=== PATIENT | female | born 1945 | race Caucasian/White ===

== ENCOUNTER 2019-01-03 23:49 | Inpatient (IN) | payer OTHER ==
[~2019-01-03] VITALS: Ht 167.6 cm; Wt 69.9 kg
[~2019-01-03 23:49] MED LIST: ASPI-1821 PO; GLU500 PO; HYDR25TA32 PO; PRAV40TA4 PO
--- NOTE | 2019-01-03 23:49 | NUR ---
PT ANGELO ALS. TAKEN TO BED 11
--- NOTE | 2019-01-03 23:50 | NUR ---
BIBA W/C/O GEN WEAKNESS THAT HAS BEEN GRADUALLY INCREASING OVER THE LAST TWO WEEKS. PT NORMALLY AMBULATORY BUT HAS NOT BEEN ABLE TO. EMS FOUND PT INCONTIENT ON SCENE. PT DENIES N/V. PT NOTED TO BE JAUNDICED. BS 113 IN ROUTE. EMS FOUND PT HYPOTENSIVE 97/41, FLUIDS GIVEN IN ROUTE. AAOX4, GCS 15. +CMS. PERIPHERAL PULSES PRESENT. CAP REFILL<3. PMH: HTN, DM UNKNOWN MEDS ALLERGIES TO PENICILLINS
[2019-01-03 23:56] VITALS: BP 138/47
--- NOTE | 2019-01-04 00:31 | NUR ---
BS 103
[2019-01-04] MEDS ORDERED: NACL 0.9% 500 ML IV SCH (00:52)
--- NOTE | 2019-01-04 00:57 | NUR ---
Dr. Reich evaluating patient at bedside.
[2019-01-04 01:24] LABS: BASOPHILS # (AUTO) 0.1 K/uL (0.00-0.22); BASOPHILS % (AUTO) 1.2 % (0.0-2.0); EOSINOPHILS % (AUTO) 0.4 % (0.0-4.0); HEMATOCRIT 31.4 % (36-48); HEMOGLOBIN 10.4 g/dL (12.0-16.0); LYMPHOCYTES # (AUTO) 0.7 K/uL (2.5-16.5); MEAN CORPUSCULAR HEMOGLOBIN 29 pg (27-31); MEAN CORPUSCULAR HGB CONC 33 g/dL (33-37); MEAN CORPUSCULAR VOLUME 87.1 fL (80-94); MONOCYTES # (AUTO) 0.6 K/uL (0.8-1.0); MONOCYTES % (AUTO) 7.2 % (1.7-9.3); NEUTROPHILS # (AUTO) 6.5 K/uL (1.8-7.7); NEUTROPHILS % (AUTO) 82.6 % (42.2-75.2); PLATELET COUNT (AUTO) 167 K/uL (140-450); RED BLOOD CELL COUNT(AUTO) 3.61 MIL/uL (4.20-5.40); WHITE BLOOD COUNT (AUTO) 7.9 K/uL (4.8-10.8)
[2019-01-04 01:35] LABS: ANION GAP 15.2 (8-16); CARBON DIOXIDE 22.3 mmol/L (21-32); CHLORIDE 102 mmol/L (98-107); CREATININE 1.6 mg/dL (0.6-1.3); GLUCOSE 109 mg/dL (74-106); POTASSIUM 3.5 mmol/L (3.5-5.1); SODIUM SERUM 136 mmol/L (136-145); UREA NITROGEN, BLOOD 30 mg/dL (7-18)
[2019-01-04 01:45] LABS: PROTHROMBIN TIME 11.9 secs (10.8-13.4)
[2019-01-04 01:49] LABS: ALBUMIN 2.1 g/dL (3.4-5.0); ASPARTATE AMINOTRANSFERASE 221 U/L (15-37); TOTAL BILIRUBIN 4.5 mg/dL (0.0-1.0)
[2019-01-04 01:52] LABS: LYMPHOCYTES % (AUTO) 8.6 % (20.5-51.1)
--- NOTE | 2019-01-04 02:00 | NUR ---
PT STRAIGHT CATHED AT THIS TIME. PT TOLERATED WELL. 10 ML OF URINE DARK ORANGE CLOUDY COLORED COLLECTED
[2019-01-04 02:02] LABS: CKMB RELATIVE INDEX 0.2 (0.0-2.5); CREATINE KINASE MB 1.2 ng/mL (0-3.6)
--- NOTE | 2019-01-04 02:20 | NUR ---
PT REPOSITIONED WITH PILLOWS FOR COMFORT
[2019-01-04 02:29] LABS: APPEARANCE,URINE CLOUDY (CLEAR); BILIRUBIN,URINE 2+ (NEGATIVE); BLOOD, URINE 1+ (NEGATIVE); COLOR,URINE YELLOW (YELLOW); LEUKOCYTE ESTERASE ,URINE 1+ (NEGATIVE); NITRITE, URINE POSITIVE (NEGATIVE); PH,URINE 5.5 (5.0-9.0); UGLUCOSE NEGATIVE (NEGATIVE)
[2019-01-04 02:35] LABS: RBC,URINE TOO NUMEROUS TO COUN /HPF (0-5); WBC,URINE TOO MANY TO COUNT /HPF (0-5)
[2019-01-04] MEDS ORDERED: NACL 0.9% 2,000 ML IV ONE (02:35)
[2019-01-04] MEDS ORDERED: LEVOFLOXACIN 500 MG/D5W PREMIX 100 ML IV ONE (03:10)
[2019-01-04] MEDS ORDERED: DOCUSATE SODIUM 100 MG GELCAP PO PRN (03:25)
[2019-01-04] MEDS ORDERED: ACETAMINOPHEN 325 MG TAB PO PRN (03:25)
[2019-01-04] MEDS ORDERED: MORPHINE SULFATE 2 MG/ML SYR IVP PRN (03:25)
[2019-01-04] MEDS ORDERED: ONDANSETRON 4 MG/2 ML VIAL IM/IVP PRN (03:25)
[2019-01-04] MEDS ORDERED: MELATONIN 3 MG TAB PO PRN (03:45)
[2019-01-04] MEDS ORDERED: MEDICATION REC. PHARMACY CONS. 1 EA MISC MC PRN ×2 (03:45→13:50)
[2019-01-04 04:00] LABS: CHOL/HDL RATIO 33.1 (1-4.5); FREE T4 (FREE THYROXINE) 1.7 ng/dL (0.76-1.46); MAGNESIUM 2.2 mg/dL (1.8-2.4); THYROID STIMULATING HORMONE 1.2 uIU/mL (0.34-3.74)
[2019-01-04] MEDS ORDERED: DEXTROSE 50% 50 ML SYR IVP PRN (04:00)
--- NOTE | 2019-01-04 04:00 | NUR ---
PT ARRIVED AT UNIT VIA GURNEY, TRANSFERRED PT TO BED, PT IN STABLE CONDITION, NO DISTRESS NOTED, RECEIVED REPORT FROM ED NURSE DARIEN RN, IV TO L AC 20G PATENT, INTACT, INFUSING LEVAQUIN AT THIS MOMENT, INFUSING WELL, PT ON ROOM AIR, NO SOB NOTED, V/S TAKEN, MRSA SWAB TAKEN, ORIENT PT TO ROOM ,BED, CALL LIGHT, INITIAL ASSESSMENT DONE, ALL SAFETY PRECAUTION MET, CALL LIGHT WITHIN REACH, WILL CONTINUE TO MONITOR.
--- NOTE | 2019-01-04 04:11 | NUR ---
Patient will be admitted to care of DR. GEORGE. Admited to TELE. Will go to room 126B. Belongings list completed. Report to LIDIA CASPER.
--- NOTE | 2019-01-04 04:20 | NUR ---
DR. MANCERA AT BEDSIDE TALKING TO PT, NOTIFIED REGARDING PT DIASTOLIC BP LOW, STATED UNDERSTANDING.
[2019-01-04 04:35] VITALS: BP 128/37
--- NOTE | 2019-01-04 05:30 | NUR ---
PT AMBULATED WITH ASSIST TO RESTROOM, PT URINATE AND DID A BM, PT WENT BACK TO BED, TOLERATED WELL, NO DISTRESS NOTED, CALL LIGHT WITHIN REACH, WILL CONTINUE TO MONITOR.
[2019-01-04] MEDS: BLOOD GLUCOSE MONITORING 1 DEV DEV FS SCH ×4 (05:39→21:10)
[2019-01-04] MEDS: NACL 0.9% 1,000 ML IV SCH ×2 (05:39→22:37)
--- NOTE | 2019-01-04 06:20 | NUR ---
RESIDENT CALLED TO CHANGE IVF TO 30ML/HR, IVF CHANGED PER DR ORDER, PT RESTING, NO DISTRESS NOTED, CALL LIGHT WITHIN REACH, WILL CONTINUE TO MONITOR.
--- NOTE | 2019-01-04 07:21 | NUR ---
RECEIVED BEDSIDE REPORT FROM PENNIE VILLARREAL. PT STABLE, AWAKE, AND ALERT AND ORIENTED X4. NO SIGNS OF DISTRESS NOTED. DENIES PAIN OR SOB. NO REDNESS, SWELLING, OR INFLAMMATION NOTED ON IV SITE. BED IN LOWEST POSITION, BED ALARM ON. CALL FITZGERALD WITHIN REACH. SAFETY MEASURES IN PLACE. PLAN OF CARE REVIEWED.
--- NOTE | 2019-01-04 07:22 | NUR ---
ENDORSED PT TO DAY SHIFT NURSE CAMILO CASPER, PT IN STABLE CONDITION, NO DISTRESS NOTED, CALL LIGHT WITHIN REACH.
[2019-01-04 08:00] VITALS: BP 141/53
--- NOTE | 2019-01-04 08:06 | NUR ---
PATIENT HAS BEEN SCREENED AND CATEGORIZED HIGH NUTRITION RISK. PATIENT WILL BE SEEN WITHIN 1-2 DAYS OF ADMISSION. 01/04/19-01/05/[address]
[2019-01-04] MEDS ORDERED: metFORMIN 500 MG TAB PO SCH (09:00)
[2019-01-04] MEDS ORDERED: LEVOFLOXACIN 250 MG/D5 PREMIX 50 ML IV SCH (09:00)
[2019-01-04] MEDS ORDERED: ATORVASTATIN 20 MG TAB PO SCH (09:00)
[2019-01-04] MEDS: ATORVASTATIN 20 MG TAB PO SCH (09:11)
[2019-01-04] MEDS: LACTOBACILLUS RHAMNOSUS GG 1 EACH CAP PO SCH (09:11)
[2019-01-04] MEDS: ASPIRIN 81 MG TAB.CHEW PO SCH (09:12)
[2019-01-04] MEDS: HYDROCHLOROTHIAZIDE 25 MG TAB PO SCH (09:12)
--- NOTE | 2019-01-04 09:19 | NUR ---
ADMINISTERED SCHEDULED MEDICATIONS, PT TOLERATED WELL. NO OTHER NEEDS AT THIS TIME.
--- NOTE | 2019-01-04 11:10 | NUR ---
PT AMBULATED TO THE BEDSIDE COMMODE WITH ASSIST, PT STABLE. LINENS AND GOWN CHANGED, PT TOLERATED WELL.
--- NOTE | 2019-01-04 13:20 | NUR ---
MADE DR JEFFREY AWARE OF PT'S SACRAL WOUND AND SKIN ASSESSMENT. TO SEE PT.
[2019-01-04] MEDS ORDERED: MECLIZINE 25 MG TAB PO PRN (13:45)
[2019-01-04 14:04] LABS: BASOPHILS % (AUTO) 0.5 % (0.0-2.0); EOSINOPHILS # (AUTO) 0.1 K/uL (0-0.4); EOSINOPHILS % (AUTO) 1.2 % (0.0-4.0); HEMATOCRIT 33.3 % (36-48); LYMPHOCYTES # (AUTO) 0.9 K/uL (2.5-16.5); LYMPHOCYTES % (AUTO) 12.4 % (20.5-51.1); MEAN CORPUSCULAR HEMOGLOBIN 29 pg (27-31); MEAN CORPUSCULAR HGB CONC 33 g/dL (33-37); MEAN CORPUSCULAR VOLUME 87.2 fL (80-94); MONOCYTES # (AUTO) 0.6 K/uL (0.8-1.0); MONOCYTES % (AUTO) 8.1 % (1.7-9.3); NEUTROPHILS # (AUTO) 5.8 K/uL (1.8-7.7); NEUTROPHILS % (AUTO) 77.8 % (42.2-75.2); PLATELET COUNT (AUTO) 172 K/uL (140-450); RED BLOOD CELL COUNT(AUTO) 3.82 MIL/uL (4.20-5.40); WHITE BLOOD COUNT (AUTO) 7.4 K/uL (4.8-10.8)
--- NOTE | 2019-01-04 14:24 | NUR ---
01/04/19 RD INITIAL ASSESSMENT COMPLETED PLEASE REFER TO NUTRITION ASSESSMENT UNDER CARE ACTIVITY FOR ESTIMATED NUTRITIONAL NEEDS. 1. RECOMMEND MECHANICALLY SOFT CCHO 60 GM, CARDIAC DIET TOLERATED 2. RECOMMEND GLUCERNA BID 3. RECOMMEND NELSON QD 4. RD TO FOLLOW-UP 2-3 DAYS, HIGH RISK STEVE TAY, RD
[2019-01-04 14:25] LABS: ANION GAP 15.4 (8-16); CARBON DIOXIDE 23.1 mmol/L (21-32); CHLORIDE 102 mmol/L (98-107); CREATININE 1.5 mg/dL (0.6-1.3); GLUCOSE 147 mg/dL (74-106); POTASSIUM 3.5 mmol/L (3.5-5.1); SODIUM SERUM 137 mmol/L (136-145); UREA NITROGEN, BLOOD 29 mg/dL (7-18)
--- NOTE | 2019-01-04 15:37 | NUR ---
PT STABLE, SLEEPING, BUT EASILY AROUSABLE. NO SIGNS OF DISTRESS NOTED.
[2019-01-04 16:00] VITALS: BP 128/44
--- NOTE | 2019-01-04 16:20 | NUR ---
VITAL SIGNS TAKEN, PT STABLE. NO OTHER NEEDS AT THIS TIME.
--- NOTE | 2019-01-04 19:25 | NUR ---
ENDORSED PT TO PENNIE ARIZA FOR CONTINUITY OF CARE. PT STABLE.
--- NOTE | 2019-01-04 19:26 | NUR ---
RECEIVED REPORT FROM DAY SHIFT NURSE. PT LYING IN BED, AAOX3. NO C/O PAIN OR SOB. IV TO LEFT AC #20G, NS AT 30 ML/HR INFUSING WELL. DISCUSSED PLAN OF CARE, PT VERBALIZED UNDERSTANDING. SAFETY PRECAUTION IN PLACE. CALL LIGHT WITHIN REACH.
[2019-01-04] MEDS: INSULIN LISPRO SLIDING SCALE 100 UNITS/ML VIAL SUBQ PRN (21:02)
--- NOTE | 2019-01-04 21:30 | NUR ---
ASSISTED PT TO BEDSIDE COMMODE AND BACK TO BED. PT HAD MEDIUM BM. NO C/O PAIN OR SOB.
--- NOTE | 2019-01-04 23:50 | NUR ---
PT SLEEPING BUT EASILY AROUSABLE. RESP EVEN AND UNLABORED. NO S/S OF PAIN OR SOB.
[2019-01-05] VITALS: BP 137/50
--- NOTE | 2019-01-05 01:00 | NUR ---
PT'S IV LEAKING. REMOVED IV CANNULA, TIP INTACT. INSERTED NEW LINE TO LEFT FA #22G, GOOD FLUSH AND BLOOD RETURN. PT TOLERATED PROCEDURE WELL.
--- NOTE | 2019-01-05 02:39 | NUR ---
PT SLEEPING. NO S/S OF RESP DISTRESS. NO S/S OF PAIN OR DISCOMFORT. SAFETY PRECAUTION IN PLACE. CALL LIGHT WITHIN REACH.
--- NOTE | 2019-01-05 05:00 | NUR ---
PT SLEEPING. NO S/S OF PAIN OR DISCOMFORT. NO S/S OF SOB. IVF INFUSING WELL.
[2019-01-05] MEDS: BLOOD GLUCOSE MONITORING 1 DEV DEV FS SCH ×4 (06:21→21:00)
--- NOTE | 2019-01-05 06:30 | NUR ---
PT AWAKE, RESTING COMFORTABLY IN BED. NO C/O PAIN OR SOB.
[2019-01-05 06:39] LABS: CARBON DIOXIDE 22.3 mmol/L (21-32); CHLORIDE 104 mmol/L (98-107); CREATININE 1.5 mg/dL (0.6-1.3); GLUCOSE 125 mg/dL (74-106); POTASSIUM 3.3 mmol/L (3.5-5.1); SODIUM SERUM 137 mmol/L (136-145); UREA NITROGEN, BLOOD 27 mg/dL (7-18)
[2019-01-05 06:41] LABS: BASOPHILS # (AUTO) 0.1 K/uL (0.00-0.22); BASOPHILS % (AUTO) 0.8 % (0.0-2.0); EOSINOPHILS # (AUTO) 0.1 K/uL (0-0.4); EOSINOPHILS % (AUTO) 1.5 % (0.0-4.0); HEMATOCRIT 28.2 % (36-48); HEMOGLOBIN 9.5 g/dL (12.0-16.0); LYMPHOCYTES # (AUTO) 1.1 K/uL (2.5-16.5); LYMPHOCYTES % (AUTO) 14.5 % (20.5-51.1); MEAN CORPUSCULAR HEMOGLOBIN 29 pg (27-31); MEAN CORPUSCULAR HGB CONC 34 g/dL (33-37); MEAN CORPUSCULAR VOLUME 86.6 fL (80-94); MONOCYTES # (AUTO) 0.7 K/uL (0.8-1.0); MONOCYTES % (AUTO) 9.5 % (1.7-9.3); NEUTROPHILS # (AUTO) 5.4 K/uL (1.8-7.7); NEUTROPHILS % (AUTO) 73.7 % (42.2-75.2); PLATELET COUNT (AUTO) 132 K/uL (140-450); RED BLOOD CELL COUNT(AUTO) 3.26 MIL/uL (4.20-5.40); RED CELL DISTRIBUTION WIDTH 17.3 % (11.6-13.7); WHITE BLOOD COUNT (AUTO) 7.3 K/uL (4.8-10.8)
--- NOTE | 2019-01-05 07:29 | NUR ---
RECEIVED BEDSIDE REPORT FROM PENNIE ARIZA. PT STABLE,SLEEPING, BUT EASILY AROUSABLE. NO SIGNS OF DISTRESS NOTED. DENIES PAIN OR SOB. NO REDNESS, SWELLING, OR INFLAMMATION NOTED ON IV SITE. BED IN LOWEST POSITION, BED ALARM ON. CALL FITZGERALD WITHIN REACH. SAFETY MEASURES IN PLACE. PLAN OF CARE REVIEWED.
--- NOTE | 2019-01-05 07:30 | NUR ---
ENDORSED PT TO DAY SHIFT NURSE. PT IN STABLE CONDITION.
[2019-01-05 08:00] VITALS: BP 128/45
[2019-01-05 08:27] LABS: FOLIC ACID 3.7 ng/mL (>3.0)
[2019-01-05] MEDS: HYDROCHLOROTHIAZIDE 25 MG TAB PO SCH (09:00)
--- NOTE | 2019-01-05 09:03 | NUR ---
MADE DR JEFFREY AWARE OF K+ 3.3. PHYSICIAN TO SEE PT.
[2019-01-05] MEDS: ATORVASTATIN 20 MG TAB PO SCH (09:30)
[2019-01-05] MEDS: ASPIRIN 81 MG TAB.CHEW PO SCH (09:30)
[2019-01-05] MEDS: LACTOBACILLUS RHAMNOSUS GG 1 EACH CAP PO SCH (09:30)
[2019-01-05] MEDS: LEVOFLOXACIN 250 MG/D5 PREMIX 50 ML IV SCH (09:32)
--- NOTE | 2019-01-05 09:43 | NUR ---
ADMINISTERED SCHEDULED MEDICATIONS, PT TOLERATED WELL. HELD SCHEDULED HYDROCHLOROTHIAZIDE FOR BP 118/43.
--- NOTE | 2019-01-05 10:50 | NUR ---
WOUND CARE NURSE AT THE BEDSIDE.
--- NOTE | 2019-01-05 11:00 | NUR ---
PER PRIMARY RN'S REQUEST SKIN ASSESSMENT DONE WITH HER AND PLAN OF CARE DISCUSSED WITH PT. AND PT. VERBALIZES UNDERSTANDING. DR. KULKARNI /DR. JEFFREY NOTIFIED OF SKIN CONDITION THAT PT. 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 INTEGUMENTARY: -INTERTRIGO TO LOWER ABDOMINAL FOLDS -INCONTINENT ASSOCIATE DERMATITIS (IAD) TO: B/L GROINS EXTENDED TO PERINEUM -BLANCHABLE REDNESS TO SACROCOCCYX AND BUTTOCKS -IAD TO RIGHT AND LEFT INNER BUTTOCKS EXTENDED TO PERIANAL MULTIPLE SMALL PARTIAL THICKNESS SKIN EROSIONS TO RIGHT BUTTOCK WOUND BED IS PINK, CLEAN AND MOIST. NO ODOR. -PRESSURE INJURY UN-STAGEABLE TO SACRALCOCCYX, 0.9X0.8CM DEPTH IS UTD, WOUND BED LIGHT BROWN DRY AND JUNE-WOUND SKIN INTACT, NO ODOR RECOMMENDATIONS: -KEEP SKIN DRY AND CLEAN AT ALL TIMES, PLEASE CHECK Q2H AND PRN FOR INCONTINENCY OF BOWEL AND BLADDER. -APPLY ANTIFUNGAL OINT. TO ABD. INTERTRIGO BIDWC AND PRN IF SOILING -APPLY Z-GUARD TO: B/L GROINS EXTENDED TO PERINEUM AND RIGHT AND LEFT BUTTOCKS EXTENDED TO PERIANAL BIDWC AND PRN IF SOILING -PAINT SACRALCOCCYX WITH BETADINE, APPLY FORM DRESSING QD AND PRN IF SOILING -OFFLOAD BILATERAL HEELS BY PLACING PILLOWS UNDER CALVES UNLESS OTHERWISE CONTRAINDICATED -PRESSURE REDISTRIBUTION SURFACE THERAPY -TURN AND REPOSITION Q2H, OFFLOAD SACRALCOCCYX BY TURNING RIGHT AND LEFT -CONTINUE TO FOLLOW RD RECOMMENDATIONS ALL ABOVE RECOMMENDATIONS DISCUSSED WITH PRIMARY RN WILL FOLLOW UP PT Q7-10 DAYS. PLEASE CONTACT WOUND CARE NURSE FOR ANY QUESTION AND CHANGE OF WOUND CONDITION. Addendum: 01/05/19 at 1135 by Sudhakar Grayson (Grace) RN ADD:-BLANCHABLE REDNESS TO SACROCOCCYX AND BUTTOCKS =SURROUNDING REDNESS AREA
[2019-01-05] MEDS ORDERED: POTASSIUM CHLORIDE 20% 40 MEQ/15 ML UDC GT SCH (12:00)
--- NOTE | 2019-01-05 12:30 | NUR ---
PT EATING LUNCH, FAMILY AT THE BEDSIDE. NO NEEDS AT THIS TIME.
[2019-01-05] MEDS ORDERED: ANTIFUNGAL CLEAR OINTMENT TP ONE (13:00)
[2019-01-05] MEDS: HYDROcodone/APAP 7.5/325 MG 1 TAB PO PRN (13:27)
[2019-01-05] MEDS: GAUZE TP SCH (13:38)
[2019-01-05] MEDS: Z-GUARD PASTE TP SCH (13:38)
--- NOTE | 2019-01-05 13:40 | NUR ---
ADMINISTERED SCHEDULED MEDICATION AND PRN NORCO FOR 6/10 BACK PAIN. PT TOLERATED WELL. FAMILY AT THE BEDSIDE.
[2019-01-05] MEDS: NACL 0.9% 1,000 ML IV SCH (13:43)
--- NOTE | 2019-01-05 14:10 | NUR ---
WOUND CARE PROVIDED PER WOUND CARE NURSE RECOMMENDATIONS.
--- NOTE | 2019-01-05 15:20 | NUR ---
PT STABLE, SLEEPING, BUT EASILY AROUSABLE. NO SIGNS OF DISTRESS NOTED.
[2019-01-05 16:00] VITALS: BP 103/43
--- NOTE | 2019-01-05 16:10 | NUR ---
VITAL SIGNS TAKEN, PT STABLE.
--- NOTE | 2019-01-05 16:39 | NUR ---
Action Finisher Note: I faxed inquiry to [facility]. Per Tracy from [facility] , they can accept patient on Tuesday01/07/19, room 10B, accepting physician is .
[2019-01-05] MEDS: INSULIN LISPRO SLIDING SCALE 100 UNITS/ML VIAL SUBQ PRN ×2 (17:02→22:02)
--- NOTE | 2019-01-05 17:21 | NUR ---
ADMINISTERED PRN COLACE FOR CONSTIPATION AND 4 UNITS HUMALOG FOR BG 248. PT TOLERATED WELL. PT REPOSITIONED, LINENS CHANGED. HEEL PROTECTORS GIVEN. INSTRUCTED PT HOW TO USE INCENTIVE SPIROMETER PER MD ORDER. PT DEMONSTRATED PROPER USE.
--- NOTE | 2019-01-05 18:00 | NUR ---
CALLED REVERBERATORY FURNACE OPERATOR FOR SCD'S. REVERBERATORY FURNACE OPERATOR TO BRING IN THE UNIT.
--- NOTE | 2019-01-05 19:05 | NUR ---
ENDORSED PT TO PENNIE LANIER FOR CONTINUITY OF CARE. PT STABLE.
--- NOTE | 2019-01-05 19:05 | NUR ---
RECEIVED ENDORSEMENT FROM CAMILO HOLDEN RN DAYSHIFT NURSE AT BEDSIDE FOR CONTINUITY OF CARE, PT IN STABLE CONDITION.
--- NOTE | 2019-01-05 20:00 | NUR ---
PT IN BED HOB UP 15%. PT IS AOX3. ALL FALLS PRECAUTIONS IN PLACE. PT DENIES PAIN AT THIS TIME. V/S FOLLOWS T 97.4 P 74 R 18 B/P 132/56 02 100% ON ROOM AIR. ALL REQUESTED NEEDS ATTENDED AND CALL FITZGERALD IN REACH.
--- NOTE | 2019-01-05 21:00 | NUR ---
PT GLUCOSE LEVEL AT THIS TIME IS 202. PT GIVEN S/S HUMALOG COVERAGE OF 4 UNITS. SCD'S BROUGHT UP BY BROACH OPERATOR.
--- NOTE | 2019-01-05 22:00 | NUR ---
PT IN BED ASLEEP ALL FALLS PRECAUTIONS IN PLACE.
[2019-01-06] VITALS: BP 134/87
--- NOTE | 2019-01-06 00:30 | NUR ---
PT TURNED AND REPOSITIONED. PT DENIES PAIN AT THIS TIME. BED LOW AND ALL FALLS PRECAUTIONS IN PLACE. V/S FOLLOWS T 98.0 P 73 R 18 B/P 115/43 02 99% ON ROOM AIR.
[2019-01-06] MEDS: Z-GUARD PASTE TP SCH ×2 (01:54→13:04)
--- NOTE | 2019-01-06 04:30 | NUR ---
PT ASSISTED TO TOILET AND HAD SM AMOUNT OF DARK LOLITA URINE ABOUT 50MLS. PT ASSISTED BACK TO BED. V/S FOLLOWS T 97.8 P 80 R 18 B/P 123/40 02 97% ON ROOM AIR. PT TURNED AND REPOSITIONED NO B/M NOTED.
[2019-01-06] MEDS: BLOOD GLUCOSE MONITORING 1 DEV DEV FS SCH ×4 (07:01→20:56)
[2019-01-06] MEDS: INSULIN LISPRO SLIDING SCALE 100 UNITS/ML VIAL SUBQ PRN ×2 (07:03→21:03)
--- NOTE | 2019-01-06 07:20 | NUR ---
RECEIVED BEDSIDE REPORT FROM PENNIE LANIER. PT STABLE, AWAKE, AND ALERT AND ORIENTED X4. NO SIGNS OF DISTRESS NOTED. NO REDNESS, SWELLING, OR INFLAMMATION NOTED ON IV SITE. DENIES PAIN OR SOB. CALL FITZGERALD WITHIN REACH. BED IN LOWEST POSITION, BED ALARM ON. SAFETY MEASURES IN PLACE. PLAN OF CARE REVIEWED.
--- NOTE | 2019-01-06 07:25 | NUR ---
REPORT GIVEN TO CAMILO HOLDEN RN DAYSHIFT NURSE AT BEDSIDE FOR CONTINUITY OF CARE, PT IN STABLE CONDITION.
[2019-01-06 08:00] VITALS: BP 116/43
[2019-01-06 08:03] LABS: BASOPHILS % (AUTO) 0.6 % (0.0-2.0); EOSINOPHILS # (AUTO) 0.1 K/uL (0-0.4); EOSINOPHILS % (AUTO) 1.4 % (0.0-4.0); HEMATOCRIT 29.9 % (36-48); HEMOGLOBIN 9.9 g/dL (12.0-16.0); LYMPHOCYTES # (AUTO) 0.7 K/uL (2.5-16.5); MEAN CORPUSCULAR HEMOGLOBIN 29 pg (27-31); MEAN CORPUSCULAR HGB CONC 33 g/dL (33-37); MEAN CORPUSCULAR VOLUME 87.2 fL (80-94); MONOCYTES # (AUTO) 0.6 K/uL (0.8-1.0); MONOCYTES % (AUTO) 8.3 % (1.7-9.3); NEUTROPHILS # (AUTO) 5.8 K/uL (1.8-7.7); PLATELET COUNT (AUTO) 139 K/uL (140-450); RED BLOOD CELL COUNT(AUTO) 3.43 MIL/uL (4.20-5.40); RED CELL DISTRIBUTION WIDTH 17.6 % (11.6-13.7); WHITE BLOOD COUNT (AUTO) 7.3 K/uL (4.8-10.8)
--- NOTE | 2019-01-06 08:05 | NUR ---
PT AMBULATED TO THE BEDSIDE COMMODE WITH ASSIST.
[2019-01-06 08:10] LABS: ANION GAP 15.8 (8-16); CARBON DIOXIDE 20.3 mmol/L (21-32); CHLORIDE 102 mmol/L (98-107); CREATININE 1.6 mg/dL (0.6-1.3); GLUCOSE 213 mg/dL (74-106); POTASSIUM 4.1 mmol/L (3.5-5.1); SODIUM SERUM 134 mmol/L (136-145); UREA NITROGEN, BLOOD 29 mg/dL (7-18)
[2019-01-06 08:48] LABS: LYMPHOCYTES % (AUTO) 9.3 % (20.5-51.1); NEUTROPHILS % (AUTO) 80.4 % (42.2-75.2)
[2019-01-06] MEDS: ATORVASTATIN 20 MG TAB PO SCH (08:57)
[2019-01-06] MEDS: LACTOBACILLUS RHAMNOSUS GG 1 EACH CAP PO SCH (08:57)
[2019-01-06] MEDS: FERROUS SULFATE 325 MG TABEC PO SCH ×2 (08:57→17:57)
[2019-01-06] MEDS: ASPIRIN 81 MG TAB.CHEW PO SCH (08:57)
[2019-01-06] MEDS: ASCORBIC ACID 500 MG TAB PO SCH (08:58)
[2019-01-06] MEDS: HYDROCHLOROTHIAZIDE 25 MG TAB PO SCH (08:58)
[2019-01-06] MEDS: LEVOFLOXACIN 250 MG/D5 PREMIX 50 ML IV SCH (08:58)
--- NOTE | 2019-01-06 09:07 | NUR ---
ADMINISTERED SCHEDULED MEDICATIONS, PT TOLERATED WELL. HELD SCHEDULED ORETIC FOR BP 116/43.
[2019-01-06 11:03] LABS: CHOL/HDL RATIO 34.3 (1-4.5)
--- NOTE | 2019-01-06 11:30 | NUR ---
PT STABLE, SLEEPING, BUT EASILY AROUSABLE. NO SIGNS OF DISTRESS NOTED.
[2019-01-06 12:36] LABS: ALBUMIN 1.9 g/dL (3.4-5.0); BILIRUBIN,DIRECT 2.6 mg/dL (0.0-0.3); TOTAL BILIRUBIN 3.1 mg/dL (0.0-1.0)
[2019-01-06] MEDS: GAUZE TP SCH (13:04)
--- NOTE | 2019-01-06 13:30 | NUR ---
PT REPOSITIONED. PT AWAKE AND ALERT WATCHING TV.
[2019-01-06] MEDS: NACL 0.9% 1,000 ML IV SCH ×2 (14:03→21:40)
--- NOTE | 2019-01-06 14:10 | NUR ---
WOUND CARE DONE. BED BATH GIVEN, LINENS AND GOWN CHANGED. PT REPOSITIONED, PT TOLERATED WELL. NO OTHER NEEDS AT THIS TIME.
[2019-01-06 16:00] VITALS: BP 107/56
--- NOTE | 2019-01-06 16:50 | NUR ---
D/C IV DUE TO SURROUNDING SKIN IS PUFFY, CATHETER TIP INTACT, BLEEDING CONTROLLED. INSERTED NEW IV ON RIGHT FA 22 G, ASYMPTOMATIC, INTACT, AND PATENT. PT TOLERATED WELL.
--- NOTE | 2019-01-06 18:14 | NUR ---
ADMINISTERED SCHEDULED MEDICATION, PT TOLERATED WELL. NO OTHER NEEDS AT THIS TIME.
--- NOTE | 2019-01-06 19:15 | NUR ---
ENDORSED PT TO RN JUSTIN FOR CONTINUITY OF CARE. PT STABLE.
--- NOTE | 2019-01-06 19:16 | NUR ---
RECEIVED PT IN STABLE CONDITION FROM AM NURSE. PT IS MED SURG. AWAKE,ALERT AND ORIENTED X4. WITH NO C/O ANY PAIN /DISCOMFORT AT THIS TIME. IVF INFUSING WELL ON THE RT FAG#22. CLEAR AND PATENT. BED ON LOWEST POSITION, JUST FINISHED DINNER. FREQUENT ROUNDS NEEDED. BSC AVAILABLE AND CALL LIGHT PLACED WITHIN EASY REACH . ENCOURAGED TO CALL IF NEED ANY ASSISTANCE. SACRAL AREA WITH DRESSING . SOME SKIN EXCORIATION ON VICKY BUTTOCKS,GROINS AND PERINEAL AREA. WILL CONTINUE TO MONITOR.
--- NOTE | 2019-01-06 20:00 | NUR ---
PT HAS BLE SCD MACHINE ON. BOTH FEET WITH HEEL PROTECTOR AND ELEVATED ON PILLOW.
--- NOTE | 2019-01-06 21:03 | NUR ---
BLOOD SUGAR WAS CHECKED RESULT 160. INSULIN COVERAGE GIVEN ORDERED ON RT DELTOID SUBQ. HAD SOME ORANGE JUICE. WILL CONTINUE TO MONITOR.
--- NOTE | 2019-01-06 21:37 | NUR ---
PT PULLED UP IN BED WITH ASSISTANCE. PLACED COMFORTABLY IN BED. WILL CONTINUE TO MONITOR.
--- NOTE | 2019-01-06 23:00 | NUR ---
PT HAD A HARD TIME GETTING UP TO BSC. SO BEDPAN WAS USED. VOIDED WITH DARK LOLITA COLORED URINE. CLEANED AND KEPT DRY. PERNEAL AREA.GROIN AND VICKY BUTTOCKS ,APPLIED WITH Z GUARD.
[2019-01-06 23:45] VITALS: BP 126/48
--- NOTE | 2019-01-07 01:00 | NUR ---
PT IS ASLEEP. NO S/S OF ANY DISCOMFORT NOTED.
[2019-01-07] MEDS: Z-GUARD PASTE TP SCH (01:23)
--- NOTE | 2019-01-07 02:00 | NUR ---
PT REPOSITIONED FOR COMFORT. TURN TO SIDE . WILL CONTINUE TO MONITOR.
--- NOTE | 2019-01-07 03:30 | NUR ---
PT ASLEEP. NO S/S OF ANY DISCOMFORT NOR PAIN NOTED. WILL CONTINUE TO MONITOR.
--- NOTE | 2019-01-07 05:15 | NUR ---
PT VOIDED THIS TIME ON A BEDPAN PERPT REQUEST. URINE STILL DARK LOLITA. NO PAIN NOTED.
[2019-01-07] MEDS: BLOOD GLUCOSE MONITORING 1 DEV DEV FS SCH ×2 (06:03→12:17)
--- NOTE | 2019-01-07 06:03 | NUR ---
BLOOD SUGAR CHECKED THIS AM RESULT 101. NO INSULIN NEEDED.
[2019-01-07] MEDS: HYDROcodone/APAP 7.5/325 MG 1 TAB PO PRN (06:13)
--- NOTE | 2019-01-07 06:25 | NUR ---
ASKED PT IF SHE STILL WANTS TO GET HER FLU VACCINE BEFORE DISCHARGE BUT THIS TIME SHE REFUSED. WILL ENDORSE TO AM NURSE.
--- NOTE | 2019-01-07 07:17 | NUR ---
WILL ENDORSE PT IN STABLE CONDITION TO AM NURSE FOR CONTINUITY OF CARE.
--- NOTE | 2019-01-07 07:35 | NUR ---
RECEIVED HAND OFF REPORT PT IS STABLE AND IN NO APPARENT DISTRESS. ALL SAFETY MEASURES ARE IN PLACE. WILL CONTINUE TO MONITOR,
[2019-01-07 08:00] VITALS: BP 105/41
--- NOTE | 2019-01-07 09:30 | NUR ---
PT IS AWAKE AND STABLE IN NO APPARENT DISTRESS. ALL SAFETY MEASURES ARE IN PLACE. WILL CONTINUE TO MONITOR
--- NOTE | 2019-01-07 09:35 | NUR ---
CALLED [facility] [phone], PER NURSE ROSS, ROOM 10B IS CURRENTLY NOT AVAILABLE YET, ROSS WILL CALL US BACK AFTER CHECKING WITH THEIR CM.
[2019-01-07] MEDS ORDERED: D50SYR IVP (09:41)
[2019-01-07] MEDS ORDERED: GLUC-805 FS (09:41)
[2019-01-07] MEDS ORDERED: HUMSLIDE SUBQ (09:41)
[2019-01-07] MEDS ORDERED: Gauze TP (09:41)
[2019-01-07] MEDS ORDERED: MELA3TAB PO (09:41)
[2019-01-07] MEDS ORDERED: DEXT50SO52 IV (09:41)
[2019-01-07] MEDS ORDERED: ZGUARD TP (09:41)
[2019-01-07] MEDS ORDERED: ASPI81CT95 PO (09:41)
[2019-01-07] MEDS ORDERED: LACT10CA PO (09:41)
[2019-01-07] MEDS ORDERED: ORE25 PO (09:41)
[2019-01-07] MEDS ORDERED: VITC500 PO (09:41)
[2019-01-07] MEDS ORDERED: FER325 PO (09:41)
--- NOTE | 2019-01-07 09:53 | NUR ---
[facility] CALLED BACK, PT IS GOING TO ROOM 4A, [employer] [facility] ARRANGED FOR [facility]NER BETWEEN 1430 & 1500 PER NENITA. [phone].
[2019-01-07] MEDS: ASPIRIN 81 MG TAB.CHEW PO SCH (09:55)
[2019-01-07] MEDS ORDERED: ACET-1182 PO (09:55)
[2019-01-07] MEDS ORDERED: MORP2SOL18 IVP (09:55)
[2019-01-07] MEDS ORDERED: DOCU-299 PO (09:55)
[2019-01-07] MEDS: LEVOFLOXACIN 250 MG/D5 PREMIX 50 ML IV SCH (09:55)
[2019-01-07] MEDS ORDERED: ACET-9529 PO (09:55)
[2019-01-07] MEDS: LACTOBACILLUS RHAMNOSUS GG 1 EACH CAP PO SCH (09:56)
[2019-01-07] MEDS: ASCORBIC ACID 500 MG TAB PO SCH (09:56)
[2019-01-07] MEDS: HYDROCHLOROTHIAZIDE 25 MG TAB PO SCH (09:56)
[2019-01-07] MEDS: FERROUS SULFATE 325 MG TABEC PO SCH (09:56)
[2019-01-07 10:10] LABS: BASOPHILS % (AUTO) 0.6 % (0.0-2.0); EOSINOPHILS # (AUTO) 0.1 K/uL (0-0.4); HEMATOCRIT 27.9 % (36-48); HEMOGLOBIN 9.2 g/dL (12.0-16.0); LYMPHOCYTES # (AUTO) 0.9 K/uL (2.5-16.5); LYMPHOCYTES % (AUTO) 12.9 % (20.5-51.1); MEAN CORPUSCULAR HEMOGLOBIN 29 pg (27-31); MEAN CORPUSCULAR HGB CONC 33 g/dL (33-37); MEAN CORPUSCULAR VOLUME 87.8 fL (80-94); MONOCYTES # (AUTO) 0.7 K/uL (0.8-1.0); MONOCYTES % (AUTO) 10.4 % (1.7-9.3); NEUTROPHILS # (AUTO) 5.2 K/uL (1.8-7.7); NEUTROPHILS % (AUTO) 74.1 % (42.2-75.2); PLATELET COUNT (AUTO) 131 K/uL (140-450); RED BLOOD CELL COUNT(AUTO) 3.18 MIL/uL (4.20-5.40); RED CELL DISTRIBUTION WIDTH 17.6 % (11.6-13.7)
[2019-01-07 10:33] LABS: CHLORIDE 103 mmol/L (98-107); CREATININE 1.5 mg/dL (0.6-1.3); GLUCOSE 119 mg/dL (74-106); POTASSIUM 4.1 mmol/L (3.5-5.1); SODIUM SERUM 134 mmol/L (136-145); UREA NITROGEN, BLOOD 28 mg/dL (7-18)
[2019-01-07 10:37] LABS: ANION GAP 14.7 (8-16); CARBON DIOXIDE 20.4 mmol/L (21-32)
[2019-01-07] MEDS: NACL 0.9% 1,000 ML IV SCH (10:37)
--- NOTE | 2019-01-07 11:30 | NUR ---
FINGERSTICK GLUCOSE 128 NO COVERAGE NEEDED. PT IS AWAKE IN BED PT IS STABLE AND IN NO APPARENT DISTRESS, ALL SAFETY MEASURES ARE IN PLACE,
--- NOTE | 2019-01-07 12:30 | NUR ---
CALLED AND GAVE HAND OFF REPORT TO ODELL CASPER AT [facility].
[2019-01-07 13:20] VITALS: BP 105/50
--- NOTE | 2019-01-07 13:30 | NUR ---
TRANSPORTATION ARRIVED PT IS STABLE AND LEFT WILL ALL PERSONAL BELONGINGS
[2019-01-08 13:38] LABS: FERRITIN 421 ng/mL (15-150)
[2019-01-09 13:26] LABS: TRANSFERRIN 99 mg/dL (200-370)
== END 2019-01-07 13:30 | DRG 682 ==
LOC: MED 23:49 → MMU 01-04 03:25
PROVIDERS: ADMIT General Practice; ATTEND General Practice
DX: N17.0 Acute kidney failure with tubular necrosis (principal); I50.43 Acute on chronic combined systolic (congestive) and diastolic (congestive) heart failure; E43 Unspecified severe protein-calorie malnutrition; G93.41 Metabolic encephalopathy; N39.0 Urinary tract infection, site not specified; M62.82 Rhabdomyolysis; E11.9 Type 2 diabetes mellitus without complications; I11.0 Hypertensive heart disease with heart failure; E86.0 Dehydration; E78.5 Hyperlipidemia, unspecified; D64.9 Anemia, unspecified; E87.6 Hypokalemia; E83.51 Hypocalcemia; L89.152 Pressure ulcer of sacral region, stage 2; K80.20 Calculus of gallbladder without cholecystitis without obstruction; B96.1 Klebsiella pneumoniae [K. pneumoniae] as the cause of diseases classified elsewhere; Z68.24 Body mass index [BMI] 24.0-24.9, adult; Z88.0 Allergy status to penicillin
CPT/HCPCS: 36415; 70450; 71045; 76700; 80048; 80053; 80076; 81001; 82247; 82248; 82306; 82550; 82553; 82607; 82728; 82746; 82948; 83036; 83540; 83605; 83690; 83735; 83880; 84100; 84439; 84443; 84484; 85025; 85045; 85610; 85730; 87040; 87081; 87086; 87186; 87804; 93005; 93880; 96361; 96365; 97110; 97116; 97161-GP; 97530; 99285; J1815; J1956; J7030; Q0092

== ENCOUNTER 2019-01-18 20:05 | Inpatient (IN) | payer OTHER ==
[~2019-01-18] VITALS: Ht 165.1 cm; Wt 89.4 kg
[2019-01-18 20:05] VITALS: BP 117/57
[~2019-01-18 20:05] MED LIST changes: +ACET-1182 PO; +ACET-9529 PO; -ASPI-1821 PO; +ASPI81CT95 PO; +D50SYR IVP; +DEXT50SO52 IV; +DOCU-299 PO; +FER325 PO; -GLU500 PO; +GLUC-805 FS; +Gauze TP; +HUMSLIDE SUBQ; -HYDR25TA32 PO; +LACT10CA PO; +MELA3TAB PO; +MORP2SOL18 IVP; +ORE25 PO; -PRAV40TA4 PO; +VITC500 PO; +ZGUARD TP
--- NOTE | 2019-01-18 20:08 | NUR ---
73 y/o F biba with c/o poor appetite. Alert to name, per EMS this is pt baseline mentation. tenderness to RLQ, pt moans and groans when area is palpated. bilateral lung todd clear. Heart sounds present. bedrails x2 up. bed in lowest postion. ERMMD notifed. Will continue to monitor.
--- NOTE | 2019-01-18 20:08 | NUR ---
PT ANGELO BLS. TAKEN TO BED 10
--- NOTE | 2019-01-18 20:09 | NUR ---
Dr. Lopez evaluating patient at bedside.
[2019-01-18] MEDS ORDERED: NACL 0.9% 1,000 ML IV ONE ×2 (20:15→22:40)
[2019-01-18] MEDS ORDERED: MORPHINE SULFATE 4 MG/ML SYR IVP ONE (20:15)
[2019-01-18] MEDS ORDERED: MULT-1868 PO (20:21)
[2019-01-18] MEDS ORDERED: NUTR887L9 PO (20:21)
[2019-01-18] MEDS ORDERED: FERR325E14 PO (20:21)
[2019-01-18 20:33] LABS: BASOPHILS # (AUTO) 0.1 K/uL (0.00-0.22); BASOPHILS % (AUTO) 1.1 % (0.0-2.0); EOSINOPHILS # (AUTO) 0.1 K/uL (0-0.4); EOSINOPHILS % (AUTO) 0.5 % (0.0-4.0); HEMATOCRIT 31.4 % (36-48); HEMOGLOBIN 10.2 g/dL (12.0-16.0); LYMPHOCYTES # (AUTO) 1.7 K/uL (2.5-16.5); MEAN CORPUSCULAR HEMOGLOBIN 29 pg (27-31); MEAN CORPUSCULAR HGB CONC 32 g/dL (33-37); MEAN CORPUSCULAR VOLUME 90.3 fL (80-94); MONOCYTES # (AUTO) 0.9 K/uL (0.8-1.0); MONOCYTES % (AUTO) 7.4 % (1.7-9.3); NEUTROPHILS # (AUTO) 9.4 K/uL (1.8-7.7); PLATELET COUNT (AUTO) 202 K/uL (140-450); RED BLOOD CELL COUNT(AUTO) 3.48 MIL/uL (4.20-5.40); WHITE BLOOD COUNT (AUTO) 12.3 K/uL (4.8-10.8)
--- NOTE | 2019-01-18 20:48 | NUR ---
PT RETURN FROM CT
[2019-01-18 20:58] LABS: ALBUMIN 1.5 g/dL (3.4-5.0); ANION GAP 18.4 (8-16); ASPARTATE AMINOTRANSFERASE 450 U/L (15-37); CARBON DIOXIDE 20.4 mmol/L (21-32); CHLORIDE 102 mmol/L (98-107); CREATININE 2.2 mg/dL (0.6-1.3); GLUCOSE 91 mg/dL (74-106); POTASSIUM 4.8 mmol/L (3.5-5.1); SODIUM SERUM 136 mmol/L (136-145); TOTAL BILIRUBIN 4.9 mg/dL (0.0-1.0)
[2019-01-18 21:01] LABS: UREA NITROGEN, BLOOD 71 mg/dL (7-18)
[2019-01-18] MEDS ORDERED: LACTULOSE 20 GM/30 ML UDC PO ONE (21:15)
[2019-01-18] MEDS ORDERED: LEVOFLOXACIN 500 MG/D5W PREMIX 100 ML IV ONE (21:15)
[2019-01-18] MEDS ORDERED: NACL 0.9% 1,500 ML IV ONE (21:15)
--- NOTE | 2019-01-18 21:30 | NUR ---
Pt seen with eyes closed. Visible chest rise and fell. VSS at this time. Will continue to monitor.
[2019-01-18] MEDS ORDERED: NACL 0.9% 1,000 ML IV SCH (21:33)
[2019-01-18] MEDS ORDERED: DOCUSATE SODIUM 100 MG GELCAP PO PRN (21:35)
[2019-01-18] MEDS ORDERED: LORazepam 2 MG/ML VIAL IM/IVP PRN (21:35)
[2019-01-18] MEDS ORDERED: ZOLPIDEM 5 MG TAB PO PRN (21:35)
[2019-01-18] MEDS ORDERED: MORPHINE SULFATE 2 MG/ML SYR IVP PRN (21:35)
[2019-01-18] MEDS ORDERED: HYDROcodone/APAP 5/325 MG 1 TAB TAB PO PRN (21:35)
[2019-01-18 21:39] LABS: APPEARANCE,URINE SL CLOUDY (CLEAR); BILIRUBIN,URINE 2+ (NEGATIVE); BLOOD, URINE 3+ (NEGATIVE); COLOR,URINE BROWN (YELLOW); LEUKOCYTE ESTERASE ,URINE 2+ (NEGATIVE); NITRITE, URINE NEGATIVE (NEGATIVE); PH,URINE 5.5 (5.0-9.0); UGLUCOSE NEGATIVE (NEGATIVE)
--- NOTE | 2019-01-18 21:45 | NUR ---
FAMILY AT BEDSIDE. INFORMED ABOUT CARE. WILL CONTINUE TO MONITOR.
[2019-01-18 21:54] LABS: RBC,URINE TOO NUMEROUS TO COUN /HPF (0-5); WBC,URINE TOO MANY TO COUNT /HPF (0-5)
[2019-01-18 22:00] LABS: BARBITURATE, URINE NEG. ng/ml (NEG <=200); BENZODIAZEPINE, URINE NEG. ng/mL (NEG <=200); CANNABINOID, URINE NEG. ng/mL (NEG <=50); COCAINE, URINE NEG. ng/mL (NEG <=300); OPIATE, URINE POS. ng/mL (NEG <=2000); PHENCYCLIDINE SCREEN,URINE NEG. ng/mL (NEG <=25)
[2019-01-18 22:16] LABS: MAGNESIUM 2.8 mg/dL (1.8-2.4); PHOSPHORUS 5.4 mg/dL (2.5-4.9); THYROID STIMULATING HORMONE 1.58 uIU/mL (0.34-3.74)
--- NOTE | 2019-01-18 22:20 | NUR ---
Patient will be admitted to care of Dr. Bentley. Admited to [facility]. Will go to room 126A. Belongings list completed. VSS at time of transport. Report to PENNIE Reynoso. Transfer of care at this time.
[2019-01-18 22:24] LABS: PROTHROMBIN TIME 11.9 secs (10.8-13.4)
[2019-01-18 22:26] LABS: CHOL/HDL RATIO 34.1 (1-4.5)
[2019-01-18 22:27] VITALS: BP 115/46
--- NOTE | 2019-01-18 22:30 | NUR ---
RECEIVED PT FROM ER VIA [facility] BEDSIDE REPORT GIVEN BY PENNIE HAJI. A/O X2. PT KNOWS HER NAME AND PLACE. ON TELE SR 65. SKIN NON INTACT. PRESSURE ULCER ON SACRAL COCCYX REGION [id number]. REDNESS TO L AND R BUTTOCKS. PICTURE WILL BE TAKEN. CURRENT VITALS BP 115/46, O2 99, P 67 R18 TEMP 97.4. NS BOLUS INFUSING FROM ER ON L AC 20G. CLEAN DRY INTACT. DR SANTIAGO AT BEDSIDE. PATIENT'S SON MARELY WEBB IS AT BEDSIDE GIVING INFORMATION ABOUT THE PT. PT ORIENTATED TO THE FLOOR. BED IN LOWEST POSITION. CALL LIGHT WITHIN REACH. FALL RISK PROTOCOL IN PLACE. WILL CONTINUE TO MONITOR.
[2019-01-19] VITALS (7 sets, daily range): BP systolic 102–113; BP diastolic 36–47
--- NOTE | 2019-01-19 | NUR ---
PT MORE AWAKE FOLLOW SIMPLES COMMANDS ON TELEMETRY SR, REPOSITIONED IV ON LEFT AC INFUSING WELL N CONTINUE MONITORING
[2019-01-19] MEDS ORDERED: ALBUTEROL SULFATE/IPRATROPIU 3 ML SOL IH PRN ×2 (00:15→07:09)
[2019-01-19] MEDS ORDERED: DEXTROSE 50% 50 ML SYR IVP PRN (00:20)
[2019-01-19] MEDS ORDERED: INSULIN LISPRO SLIDING SCALE 100 UNITS/ML VIAL SUBQ PRN (00:20)
[2019-01-19] MEDS: HYDRAGUARD CREAM TP SCH ×2 (01:00→14:58)
[2019-01-19] MEDS ORDERED: LEVOFLOXACIN 500 MG/D5W PREMIX 100 ML IV SCH (01:00)
[2019-01-19] MEDS: DEXT 5% /NACL 0.9% 1,000 ML IV SCH ×2 (01:24→11:45)
--- NOTE | 2019-01-19 02:00 | NUR ---
CHADWICK CATH INSERTED AND CLOUDY URINE DRAINING
[2019-01-19] MEDS ORDERED: SODIUM PHOSPHATE 118 ML ENEM RC SCH (03:00)
--- NOTE | 2019-01-19 03:00 | NUR ---
FLEET ENEMA GIVEN ORDER PT REPSITIONED Q2H ON TELEMETRY SR CHADWICK CATH DRAINING WELL YELLOW CLOUDYURINE
--- NOTE | 2019-01-19 04:00 | NUR ---
SPONGE BATH GIVEN LINEN CHANGED REPOSITIONED Q2H IV ON LEFT AC INFUSING WELL FOLEYCATH DRAINING WELL YELLOW COLOR CLOUDY URINE
[2019-01-19] MEDS ORDERED: DOCUSATE SODIUM 100 MG GELCAP PO PRN (05:30)
[2019-01-19] MEDS ORDERED: NON-FORMULARY ITEM (Melatonin 3 MG) PO PRN (05:30)
--- NOTE | 2019-01-19 06:15 | NUR ---
BLOOD SUGAR TEST 121 NOT COVERAGE
--- NOTE | 2019-01-19 06:16 | NUR ---
PT IS TAKEN TO RADIOLOGY FOR CT HEAD
[2019-01-19] MEDS: BLOOD GLUCOSE MONITORING 1 DEV DEV FS SCH ×4 (06:24→20:28)
--- NOTE | 2019-01-19 06:27 | NUR ---
AT 0627 PT CAME BACK FROM RADILOGY FOR CT HEAD , NOT DISTRESS NOTED PTON TELMETRY SR
--- NOTE | 2019-01-19 06:28 | NUR ---
PT WILL BE ENDORSED TO DAY SHIFT NURSE FOR CONTINUE OF CARE PT FOLLOW SIMPLE COMMANDS NOT DISTRESS NOTED
[2019-01-19 06:49] LABS: BASOPHILS % (AUTO) 0.5 % (0.0-2.0); EOSINOPHILS # (AUTO) 0.1 K/uL (0-0.4); EOSINOPHILS % (AUTO) 0.6 % (0.0-4.0); HEMATOCRIT 30.1 % (36-48); HEMOGLOBIN 10.1 g/dL (12.0-16.0); LYMPHOCYTES # (AUTO) 1.3 K/uL (2.5-16.5); LYMPHOCYTES % (AUTO) 13.4 % (20.5-51.1); MEAN CORPUSCULAR HEMOGLOBIN 30 pg (27-31); MEAN CORPUSCULAR HGB CONC 34 g/dL (33-37); MEAN CORPUSCULAR VOLUME 89.5 fL (80-94); MONOCYTES # (AUTO) 0.7 K/uL (0.8-1.0); MONOCYTES % (AUTO) 6.7 % (1.7-9.3); NEUTROPHILS # (AUTO) 7.9 K/uL (1.8-7.7); NEUTROPHILS % (AUTO) 78.8 % (42.2-75.2); PLATELET COUNT (AUTO) 198 K/uL (140-450); RED BLOOD CELL COUNT(AUTO) 3.36 MIL/uL (4.20-5.40); RED CELL DISTRIBUTION WIDTH 18.9 % (11.6-13.7)
[2019-01-19 07:04] LABS: ANION GAP 16.6 (8-16); CARBON DIOXIDE 20.7 mmol/L (21-32); CHLORIDE 105 mmol/L (98-107); GLUCOSE 131 mg/dL (74-106); POTASSIUM 4.3 mmol/L (3.5-5.1); SODIUM SERUM 138 mmol/L (136-145)
[2019-01-19 07:15] LABS: UREA NITROGEN, BLOOD 66 mg/dL (7-18)
[2019-01-19] MEDS ORDERED: MELATONIN 3 MG TAB PO PRN (07:20)
--- NOTE | 2019-01-19 07:22 | NUR ---
RECEIVED BEDSIDE REPORT FROM SUPERVISOR DRAWING NURSE. PATIENT IS RESTING ON BED AT THIS TIME. PATIENT IS AOX1 TO NAME. AROUSEBLE TO VOICE AND EYE OPEN TO VOICE. RESPIRATION EVEN AND UNLABORED. ON RA. FLACC 0. NO SIGNS OF DISTRESS NOTED. IV ON LAC 20G, INTACT AND DRY, INFUSING PER MD ORDER. WOUND ON SACRAL NOTED AND REDNESS ON BUTTOCK NOTED. PATIENT IS BEDREST. CHADWICK CATHETER IN PLACE. FALL RISK PROTOCOL IN PLACE. SEQUENTIAL COMPRESSION SOCKS IN PLACE. CALL LIGHT WITHIN REACH. INSTRUCTED PATIENT TO USE THE CALL LIGHT FOR ANY ASSISTANCE AND PATIENT NODDED HER HEAD. TELE MONITOR ATTACHED/
[2019-01-19] MEDS: ALBUTEROL SULFATE/IPRATROPIU 3 ML SOL IH SCH ×3 (07:55→19:27)
--- NOTE | 2019-01-19 08:36 | NUR ---
PATIENT HAS BEEN SCREENED AND CATEGORIZED HIGH NUTRITION RISK. PATIENT WILL BE SEEN WITHIN 1-2 DAYS OF ADMISSION. 01/19/19-01/20/[address]
[2019-01-19] MEDS ORDERED: NON-FORMULARY ITEM (Aspirin 81 MG) PO SCH (09:00)
[2019-01-19] MEDS: FERROUS SULFATE 325 MG TABEC PO SCH (09:00)
[2019-01-19] MEDS: ASPIRIN 81 MG TAB.CHEW PO SCH (09:00)
[2019-01-19] MEDS: ASCORBIC ACID 500 MG TAB PO SCH (09:00)
[2019-01-19] MEDS: LACTOBACILLUS RHAMNOSUS GG 1 EACH CAP PO SCH (09:00)
[2019-01-19] MEDS: HYDROCHLOROTHIAZIDE 25 MG TAB PO SCH (09:00)
[2019-01-19] MEDS ORDERED: NON-FORMULARY ITEM (Amino Acids/Protein Hydrolys (Pro-Stat Sugar Free Liquid) 30 ML) PO SCH (09:00)
--- NOTE | 2019-01-19 09:20 | NUR ---
DR VANG AND DR RILEY ARE ASSESSING THE PATIENT AT BEDSIDE. PATIENT OPENED HER EYES TO VOICE. NO SIGNS OF DISTRESS NOTED. TELE MONITOR ATTACHED/ SAFETY MEASURES IN PLACE.
--- NOTE | 2019-01-19 09:52 | NUR ---
BP TAKEN; 106/35, PULSE [address] RILEY ON REGARD OF LOW DIASTOLIC B/P AND PATIENT WAS CONFUSED AND CONCERNED OF NOT ABLE TO SWALLOW AM MEDS. DR RILEY CAME TO BEDSIDE AND ASSESSED PATIENT. PATIENT IS AROUSEABLE TO VOICE AND EYES OPEN SPONTANEOUSLY, BUT SHE WAS CONFUSED AND UNABLE TO ANSWER ANY QUESTION. PER DR RILEY, HOLD B/P MEDS AND ALL THE PO MEDS. HE WILL ORDER SWALLOW EVALUATION AND INTERVENTION FOR LOW BP. SAFETY MEASURES IN PLACE. BED IN LOW POSITION AND CALL LIGHT WITHIN REACH. TELE MONITOR ATTACHED.
[2019-01-19] MEDS ORDERED: NACL 0.9% 500 ML IV SCH (09:55)
--- NOTE | 2019-01-19 10:09 | NUR ---
ADMINISTERED NS 500ML BOLUS PER MD ORDER. PATIENT IS RESTING ON BED AT THIS TIME. SAFETY MEASURES IN PLACE. TELE MONITOR ATTACHED.
--- NOTE | 2019-01-19 11:00 | NUR ---
WOUND CARE EVALUATION NOTE: REASON FOR EVALUATION: LOW VANDANA SCALE SACRALCOCCYX AND BUTTOCK WOUNDS SKIN ASSESSMENT DONE WITH THIS 73Y/O FEMALE PT ADMITTED FROM SNF TO [facility] WITH INITIAL DX FAILURE TO THRIVE X 3WEEKS. PAST MEDICAL HX INCLUDES HTN, DM, HLD AND PRESSURE ULCER WOUND. ALL ABOVE INFORMATION OBTAINED FROM ADMISSION H&P. PT IS AWAKE. SKIN IS WARM AND DRY, BLE HAIR GROWTH, NO EDEMA. DORSAL PEDAL PULSES PRESENT AND NORMAL. CAPILLARY REFILLED < 2 SEC. PLAN OF CARE DISCUSSED WITH PRIMARY RN. AND PT. NEED REINFORCE TEACHING ON PT. 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 INTEGUMENTARY: -INTERTRIGO TO UNDER BREAST AND LOWER ABDOMINAL FOLDS -INCONTINENT ASSOCIATE DERMATITIS (IAD) TO: RIGHT AND LEFT BUTTOCKS WITH MULTIPLE SKIN EROSIONS LARGEST MEASURED 0.5X0.5CM WITH SUPERFICIAL DEPTH. -PRESSURE INJURY UN-STAGEABLE TO SACRALCOCCYX, 1X1CM DEPTH IS UTD, WOUND BED LIGHT YELLOW, DRY AND JUNE-WOUND SKIN INTACT, NO ODOR RECOMMENDATIONS: -KEEP SKIN DRY AND CLEAN AT ALL TIMES, PLEASE CHECK Q2H AND PRN FOR INCONTINENCY OF BOWEL AND BLADDER. -APPLY ANTIFUNGAL OINT. TO UNDER BREAST ABD. INTERTRIGO BIDWC AND PRN IF SOILING -APPLY Z-GUARD TO:RIGHT AND LEFT BUTTOCKS BIDWC AND PRN IF SOILING -PAINT SACRALCOCCYX WITH BETADINE, APPLY FORM DRESSING QD AND PRN IF SOILING -OFFLOAD BILATERAL HEELS BY PLACING PILLOWS UNDER CALVES UNLESS OTHERWISE CONTRAINDICATED -PRESSURE REDISTRIBUTION SURFACE THERAPY -TURN AND REPOSITION Q2H, OFFLOAD SACRALCOCCYX BY TURNING RIGHT AND LEFT -CONTINUE TO FOLLOW RD RECOMMENDATIONS ALL ABOVE RECOMMENDATIONS DISCUSSED WITH PRIMARY RN WILL FOLLOW UP PT Q7-10 DAYS. PLEASE CONTACT WOUND CARE NURSE FOR ANY QUESTION AND CHANGE OF WOUND CONDITION.
--- NOTE | 2019-01-19 11:15 | NUR ---
PENNIE NGUYEN FROM [facility] IS AT BEDSIDE. SHE TALKED TO PATIENT AND PATIENT WAS ABLE TO ANSWER HER QUESTIONS WITH SHORT RESPONSE. NO SIGNS OF DISTRESS NOTED. SAFETY MEASURES IN PLACE. TELE MONITOR ATTACHED. BED IN LOW POSITION AND CALL LIGHT WITHIN REACH.
--- NOTE | 2019-01-19 11:16 | NUR ---
ASSISTED HEAD OF PARTNER DEVELOPMENT TO CHANGE PATIENT, TURN PATIENT AND CLEAN PATIENT. PATIENT HAS ONE MEDIUM BM. WOUND CARE NURSE EMILIA IS AT BEDSIDE AND ASSESSING WOUND. NO SIGNS OF DISTRESS NOTED. SAFETY MEASURES IN PLACE. TELE MONITOR ATTACHED.
--- NOTE | 2019-01-19 11:25 | NUR ---
CHECKED BP AND RECEIVED 113/47, MAP 69, PULSE 73, AND SPO2 99% ON ROOM AIR. NOTIFIED DR RILEY OF CURRENT BP.
--- NOTE | 2019-01-19 12:03 | NUR ---
CHECKED VITAL SIGNS AND RECEIVED TEMPP 98.3, BP 102/43, MAP 70, PULSE 72, SPO2 99%, RR 18, AND FLACC 0. NOTIFIED CURRENT VITAL SIGNS TO DR BELLO. PATIENT IS RESTING ON BED AT THIS TIME. SEQUENTIAL COMPRESSION SOCKS IN PLACE. NO SIGNS OF DISTRESS NOTED. TELE MONITOR ATTACHED.
--- NOTE | 2019-01-19 12:10 | NUR ---
PATIENT IS OFF UNIT TO THE RADIOLOGY DEPARTMENT ACCOMPANIED BY PENNIE GOLD. PATIENT IS IN STABLE CONDITION. Addendum: 01/19/19 at 1400 by Yuki Grayson RN [facility] GOLD
[2019-01-19] MEDS ORDERED: ENOXAPARIN 30 MG/0.3 ML SYR SUBQ SCH (13:00)
--- NOTE | 2019-01-19 13:30 | NUR ---
RECEIVED A CALL FROM ALLA THE RADIOLOGIST. PER ALLA, THE HIDA SCAN WAS NOT ABLE TO VISUALIZE THE GALLBLADDER DUE TO THE BILE DUCT IS BLOCKING IT. SHE IS ASKING TO GIVE 2 MG OF MORPHINE TO RELAX THE BILE DUCT PER RADIOLOGY DEPT PROTOCOL. INFORMED DR RILEY ON REGARDS INFORMATION AND PATIENT'S LAST BP WAS LOW. PER DR RILEY, GIVE ONLY 1 MG OF MORPHINE.
--- NOTE | 2019-01-19 13:46 | NUR ---
B/P TAKEN AND RECEIVED 116/42, MAP 82 AND PULSE 72. ADMINISTER MORPHINE PER MD ORDER.
[2019-01-19] MEDS ORDERED: MORPHINE SULFATE 2 MG/ML SYR IVP SCH (14:00)
--- NOTE | 2019-01-19 14:10 | NUR ---
S.T. NOTE MD order received for bedside swallow eval. Chart reviewed, attempted to see pt x 2. Pt was away for HIDA scan since 12:00 p.m. Per RN Yuki at 14:00, pt still in radiology for scan, would not be done for one hour. At this time, the clinician cannot wait in facility, as there is another order to attend to at another facility ([facility]). Please complete MD swallow screening at bedside. Thank you.
--- NOTE | 2019-01-19 14:45 | NUR ---
PATIENT CAME BACK TO THE UNIT AT THIS TIME. CONNECTED TO IVF AND INFUSING PER MD ORDER. HEEL WEDGES IN PLACE, SEQUENTIAL COMPRESSION SOCKS IN PLACE. TELE MONITOR ATTACHED. SAFETY MEASURES IN PLACE.
[2019-01-19] MEDS: Z-GUARD PASTE TP SCH (14:57)
[2019-01-19] MEDS: NYSTATIN POW 100 MU/GM 15 GM BTL TP SCH (14:57)
[2019-01-19] MEDS: metroNIDAZOLE 500 MG/NS PREMIX 100 ML IV SCH ×2 (14:57→20:28)
[2019-01-19] MEDS: GAUZE TP SCH (14:58)
--- NOTE | 2019-01-19 15:10 | NUR ---
VITAL SIGNS TAKEN, TEMP. 97.4, B/P 113/44, MAP 77, PULSE 69, SPO2 99%, RR 18, AND FLACC 0. NOTIFIED DR RILEY ON REGARDS OF VITAL SIGNS AND DR RILEY WAS AWARE. ADMINISTERED MEDS PER MD ORDER, PATIENT TOLERATED WELL. PERFORMED WOUND CARE; APPLIED NYAMYC UNDER BOTH BREASTS. APPLIED Z-GUARD TO BUTTOCKS. HEEL WEDGES IN PLACE AND SEQUENTIAL COMPRESSION SOCKS IN PLACE. NO SIGNS OF DISTRESS NOTED. PATIENT IS RESTING ON BED AT THIS TIME. SAFETY MEASURES IN PLACE. TELE MONITOR ATTACHED. BED IN LOW POSITION AND CALL LIGHT WITHIN REACH.
--- NOTE | 2019-01-19 15:32 | NUR ---
COLLECTED URINE VIA [facility] AND DELIVERED TO LAB PER MD ORDER.
[2019-01-19] MEDS: SODIUM BICARBONATE 8.4% 50 MEQ in NACL 0.45% 1,000 ML IV SCH (15:47)
--- NOTE | 2019-01-19 15:59 | NUR ---
01/19/19 RD INITIAL ASSESSMENT COMPLETED PLEASE REFER TO NUTRITION ASSESSMENT UNDER CARE ACTIVITY FOR ESTIMATED NUTRITIONAL NEEDS. 1. CONTINUE NPO UNTIL SWALLOW EVAL RECOMMENDATIONS TO ADVANCE DIET 2. RECOMMEND VITAMIN C 200 MG BID AND MULTIVITAMIN ONCE DAILY 3. RD TO FOLLOW-UP 2-3 DAYS, HIGH RISK STEVE TAY, RD
--- NOTE | 2019-01-19 16:04 | NUR ---
I MET PATIENT AT BEDSIDE AND EXPLAINED TO PATIENT THAT I WILL OBTAIN AND VERIFY INFORMATION WITH HER. PATIENT STATED THAT " IM VERY TIRED AND I WANTED TO REST". PATIENT REFUSED TO TALK AT THIS TIME. PROVIDED PRIVACY AND TURNED OFF LIGHTS REQUESTED BY PATIENT.
--- NOTE | 2019-01-19 16:36 | NUR ---
DR ODONNELL IS AT BEDSIDE AND ASSESSING PATIENT. NO SIGNS OF DISTRESS NOTED. SAFETY MEASURES IN PLACE.
--- NOTE | 2019-01-19 17:15 | NUR ---
PATIENT'S SON MARELY IS AT BEDSIDE. NO SIGNS OF DISTRESS NOTED. TELE MONITOR ATTACHED. SAFETY MEASURES IN PLACE. BED IN LOW POSITION AND CALL LIGHT WITHIN REACH.
--- NOTE | 2019-01-19 17:24 | NUR ---
DR RILEY IS TALKING TO PATIENT'S SON MARELY AT BEDSIDE.
--- NOTE | 2019-01-19 17:48 | NUR ---
PATIENT IS RESTING ON BED AT THIS TIME. FLACC 0. NO SIGNS OF DISTRESS NOTED. ORALIA YAP IS AT BEDSIDE. SAFETY MEASURES IN PLACE. BED IN LOW POSITION AND CALL LIGHT WITHIN REACH. INSTRUCTED ORALIA YAP TO USE THE CALL LIGHT FOR ANY ASSISTANCE AND MARELY WAS AWARE.
--- NOTE | 2019-01-19 18:30 | NUR ---
DR HOBBS SPOKE TO PATIENT'S SON MARELY AT BEDSIDE ON REGARDS OF THE PROCEDURES AND MARELY AUTHORIZED AND AGREED TO PERFORM THE PROCEDURES. CONSENTS OBTAINED.
--- NOTE | 2019-01-19 19:17 | NUR ---
ENDORSED PATIENT AT BEDSIDE TO WILDLAND FIREFIGHTER NURSE FOR CONTINUITY OF CARE. PATIENT IS IN STABLE CONDITION. ORALIA YAP IS AT BEDSIDE.
--- NOTE | 2019-01-19 19:18 | NUR ---
RECEIVED REPORT FROM DAY SHIFT NURSE BRENDA-RN AT BEDSIDE. PT RESTING IN BED WITH SON AT BEDSIDE. PT AOX1/2-CONFUSED. DISCUSSED PLAN OF CARE WITH PT SON AND HE VERBALIZED UNDERSTANDING. PT MOANING IN PAIN- DR. HOBBS AWARE AND AWAITING ORDERS. BP 110/36 HR 70. LEFT AC #20G RUNNING BICARB @100ML/HR. BED IN LOWEST POSITION, BED BREAKS ON, BOTH SIDE RAILS UP AND FALL PRECAUTIONS IN PLACE. CHADWICK CATHETER IN PLACE WITH DARK BROWN URINE. WILL CONTINUE TO MONITOR.
--- NOTE | 2019-01-19 20:00 | NUR ---
VITAL SIGNS TAKEN AND TOLERATED WELL. LOW BP NOTED 97/28- DR. HOBBS IS AWARE. BLOOD GLUCOSE 131- NO INSULIN COVERAGE NEEDED. WILL CONTINUE TO MONITOR.
[2019-01-19] MEDS ORDERED: KETOROLAC 10 MG TAB PO PRN (20:05)
[2019-01-19] MEDS: KETOROLAC 15 MG/ML VIAL IVP PRN (20:27)
--- NOTE | 2019-01-19 20:28 | NUR ---
SCHEDULED MEDICATION FLAGYL GIVEN AND TOLERATED WELL. TORADOL GIVEN FOR PAIN AND TOLERATED WELL. NEW IV SITE ON LEFT HAND #24 CHANI INSERTED BY CHARGE NURSE LATISHA ON FIRST ATTEMPT. PT TOLERATED WELL. WILL CONTINUE TO MONITOR.
--- NOTE | 2019-01-19 22:00 | NUR ---
PT SLEEPING IN BED. NO S/S OF RESPIRATORY DISTRESS OR DISCOMFORT NOTED AT THIS TIME. WILL CONTINUE TO MONITOR.
[2019-01-19 23:01] LABS: CHLORIDE,URINE RANDOM 30 mmol/L (110-250); CREATININE,URINE RANDOM 145 mg/dL (30-125); URINE SODIUM, RANDOM 10 mmol/l (40-220)
[2019-01-20] VITALS (7 sets, daily range): BP systolic 95–115; BP diastolic 34–48
[2019-01-20] MEDS ORDERED: LEVOFLOXACIN 250 MG/D5 PREMIX 50 ML IV SCH
--- NOTE | 2019-01-20 | NUR ---
VITAL SIGNS TAKEN AND TOLERATED WELL. NO S/S OF RESPIRATORY DISTRESS OR DISCOMFORT NOTED AT THIS TIME. WILL CONTINUE TO MONITOR.
[2019-01-20] MEDS: NYSTATIN POW 100 MU/GM 15 GM BTL TP SCH ×2 (01:32→13:00)
[2019-01-20] MEDS: Z-GUARD PASTE TP SCH ×2 (01:32→13:00)
[2019-01-20] MEDS: HYDRAGUARD CREAM TP SCH ×2 (01:32→13:00)
[2019-01-20] MEDS: SODIUM BICARBONATE 8.4% 50 MEQ in NACL 0.45% 1,000 ML IV SCH ×3 (01:40→22:48)
--- NOTE | 2019-01-20 02:00 | NUR ---
PT SLEEPING IN BED. NO S/S OF RESPIRATORY DISTRESS OR DISCOMFORT NOTED AT THIS TIME. WILL CONTINUE TO MONITOR.
[2019-01-20] MEDS ORDERED: NACL 0.9% 1,000 ML IV ONE (02:15)
[2019-01-20] MEDS ORDERED: diphenhydrAMINE 50 MG/ML VIAL IVP ONE (02:25)
--- NOTE | 2019-01-20 02:53 | NUR ---
PT C/O ITCHING. SPOKE TO DR. HOBBS AND WAS GIVEN ORDER FOR BENADRYL. GIVEN AND TOLERATED WELL. NO S/S OF RESPIRATORY DISTRESS OR DISCOMFORT NOTED AT THIS TIME. WILL CONTINUE TO MONITOR.
[2019-01-20] MEDS ORDERED: diphenhydrAMINE 50 MG/ML VIAL IVP SCH (03:00)
[2019-01-20] MEDS: metroNIDAZOLE 500 MG/NS PREMIX 100 ML IV SCH ×3 (05:56→20:33)
--- NOTE | 2019-01-20 05:56 | NUR ---
SCHEDULED MEDICATION FLAGYL GIVEN AND TOLERATED WELL. NO S/S OF RESPIRATORY DISTRESS OR DISCOMFORT NOTED AT THIS TIME. WILL CONTINUE TO MONITOR.
--- NOTE | 2019-01-20 06:00 | NUR ---
BLOOD GLUCOSE 96- NO INSULIN COVERAGE NEEDED. NO S/S OF RESPIRATORY DISTRESS OR DISCOMFORT NOTED AT THIS TIME. WILL CONTINUE TO MONITOR.
[2019-01-20] MEDS: BLOOD GLUCOSE MONITORING 1 DEV DEV FS SCH ×4 (06:53→20:32)
[2019-01-20] MEDS: ALBUTEROL SULFATE/IPRATROPIU 3 ML SOL IH SCH ×3 (07:09→20:41)
--- NOTE | 2019-01-20 07:14 | NUR ---
ENDORSED PT CARE TO DAY SHIFT NURSE CAMILO SCALES FOR CONTINUITY OF CARE.
--- NOTE | 2019-01-20 07:15 | NUR ---
RECEIVED BEDSIDE REPORT FROM PENNIE BELTRAN. PT STABLE, AWAKE, ALERT AND ORIENTED X1. NO SIGNS OF DISTRESS NOTED. DENIES PAIN OR SOB. NO REDNESS, SWELLING, OR INFLAMMATION NOTED ON IV SITE. CALL FITZGERALD WITHIN REACH. BED IN LOWEST POSITION, BED ALARM ON. SAFETY MEASURES IN PLACE. PLAN OF CARE REVIEWED. Addendum: 01/20/19 at 0858 by Gautam Shanks RN CHADWICK CATHETER IN PLACE.
[2019-01-20 08:01] LABS: BASOPHILS # (AUTO) 0.1 K/uL (0.00-0.22); BASOPHILS % (AUTO) 0.6 % (0.0-2.0); EOSINOPHILS # (AUTO) 0.2 K/uL (0-0.4); EOSINOPHILS % (AUTO) 1.6 % (0.0-4.0); HEMATOCRIT 27.4 % (36-48); HEMOGLOBIN 9.2 g/dL (12.0-16.0); LYMPHOCYTES # (AUTO) 1.4 K/uL (2.5-16.5); MEAN CORPUSCULAR HEMOGLOBIN 31 pg (27-31); MEAN CORPUSCULAR HGB CONC 34 g/dL (33-37); MEAN CORPUSCULAR VOLUME 90.4 fL (80-94); MONOCYTES # (AUTO) 0.8 K/uL (0.8-1.0); MONOCYTES % (AUTO) 8.2 % (1.7-9.3); NEUTROPHILS # (AUTO) 7.6 K/uL (1.8-7.7); NEUTROPHILS % (AUTO) 75.6 % (42.2-75.2); PLATELET COUNT (AUTO) 180 K/uL (140-450); RED BLOOD CELL COUNT(AUTO) 3.03 MIL/uL (4.20-5.40); RED CELL DISTRIBUTION WIDTH 19.4 % (11.6-13.7)
[2019-01-20 08:03] LABS: ALBUMIN 1.4 g/dL (3.4-5.0); ANION GAP 16.3 (8-16); ASPARTATE AMINOTRANSFERASE 333 U/L (15-37); CARBON DIOXIDE 20.6 mmol/L (21-32); CHLORIDE 108 mmol/L (98-107); GLUCOSE 97 mg/dL (74-106); POTASSIUM 3.9 mmol/L (3.5-5.1); SODIUM SERUM 141 mmol/L (136-145)
[2019-01-20 08:12] LABS: MAGNESIUM 2.4 mg/dL (1.8-2.4); PHOSPHORUS 4.8 mg/dL (2.5-4.9)
[2019-01-20 08:25] LABS: UREA NITROGEN, BLOOD 66 mg/dL (7-18)
[2019-01-20] MEDS: ENOXAPARIN 30 MG/0.3 ML SYR SUBQ SCH (08:35)
[2019-01-20] MEDS: KETOROLAC 15 MG/ML VIAL IVP PRN ×3 (08:36→23:28)
[2019-01-20] MEDS: ASPIRIN 81 MG TAB.CHEW PO SCH (08:50)
--- NOTE | 2019-01-20 08:50 | NUR ---
ADMINISTERED SCHEDULED LOVENOX AND PRN TORADOL FOR PAIN. PT GRIMACING, MOANING, AND CRYING. PO MEDS NOT GIVEN DUE TO PT CONCERNED ABOUT NOT BEING ABLE TO SWALLOW. AWAITING SWALLOW EVAL PER MD ORDER. WILL CONTINUE TO MONITOR.
[2019-01-20] MEDS: HYDROCHLOROTHIAZIDE 25 MG TAB PO SCH (08:51)
[2019-01-20] MEDS: LACTOBACILLUS RHAMNOSUS GG 1 EACH CAP PO SCH (08:51)
[2019-01-20] MEDS: FERROUS SULFATE 325 MG TABEC PO SCH (08:51)
[2019-01-20] MEDS: ASCORBIC ACID 500 MG TAB PO SCH (08:51)
[2019-01-20] MEDS ORDERED: RIVAROXABAN 10 MG TAB PO SCH (09:00)
--- NOTE | 2019-01-20 09:10 | NUR ---
MADE DR ABDULLAHI AWARE OF BP 104/36 AND PT UNABLE TO SWALLOW PO MEDS. WILL CONTINUE TO MONITOR
--- NOTE | 2019-01-20 11:10 | NUR ---
PT STABLE, CALM, AND SLEEPING COMFORTABLY BUT EASILY AROUSABLE.
[2019-01-20 12:11] LABS: HEPATITIS A ANTIBODY IGM Negative (Negative); HEPATITIS B CORE AB TOTAL Negative (Negative); HEPATITIS B SURFACE ANTIBODY Non Reactive (.); HEPATITIS B SURFACE ANTIGEN Negative (Negative)
--- NOTE | 2019-01-20 12:45 | NUR ---
PT TAKEN TO THE OR FOR EGD.
[2019-01-20] MEDS ORDERED: diphenhydrAMINE 50 MG/ML VIAL ONE (12:57)
[2019-01-20] MEDS ORDERED: fentaNYL 0.05 MG/ML VIAL ONE (12:57)
[2019-01-20] MEDS ORDERED: MIDAZOLAM 2 MG/2 ML VIAL ONE (12:57)
[2019-01-20] MEDS: GAUZE TP SCH (13:00)
--- NOTE | 2019-01-20 13:20 | NUR ---
SPOKE WITH DR VANG REGARDING PLAN OF CARE. PER DR VANG, PT WILL HAVE COLONOSCOPY WITH POSSIBLE BIOPSY ON TUESDAY AFTERNOON. RECEIVED TELEPHONE ORDERS FOR PT TO START ON CLEAR LIQUIDS AND BOWEL PREP TOMORROW 01/21/19. MADE DR ABDULLAHI AWARE OF DR VANG'S ORDERS.
--- NOTE | 2019-01-20 13:45 | NUR ---
PT CAME BACK FROM OR. PT STABLE, VITAL SIGNS TAKEN. ADMINISTERED SCHEDULED MEDICATION, PT TOLERATED WELL. NO OTHER NEEDS AT THIS TIME.
--- NOTE | 2019-01-20 14:10 | NUR ---
BLADDER SCAN PERFORMED, [address] ABDULLAHI AWARE. WILL REPOSITION PATIENT AND WILL CONTINUE TO MONITOR.
--- NOTE | 2019-01-20 15:05 | NUR ---
MADE DR ABDULLAHI AND CHARGE NURSE BENY AWARE THAT PT IS POSITIVE FOR GRAM POSITIVE COCCI IN CLUSTERS.
[2019-01-20] MEDS ORDERED: fentaNYL 0.05 MG/ML VIAL IVP ONE (15:35)
[2019-01-20] MEDS ORDERED: MIDAZOLAM 2 MG/2 ML VIAL IVP ONE (15:35)
--- NOTE | 2019-01-20 15:40 | NUR ---
WOUND CARE AND CHADWICK CATHETER CARE DONE, PT TOLERATED WELL. PT REPOSITIONED, LINENS AND GOWN CHANGED. NO OTHER NEEDS AT THIS TIME.
--- NOTE | 2019-01-20 16:25 | NUR ---
VITAL SIGNS TAKEN, PT STABLE. BLOOD GLUCOSE CHECKED, 87, NO COVERAGE NEEDED. PT CALM, SLEEPING, BUT EASILY AROUSABLE.
--- NOTE | 2019-01-20 17:25 | NUR ---
ADMINISTERED PRN TORADOL FOR PAIN, FLACC 6. WILL CONTINUE TO MONITOR.
--- NOTE | 2019-01-20 18:25 | NUR ---
PT REPOSITIONED, NO OTHER NEEDS AT THIS TIME. CHADWICK CATHETER PATENT AND DRAINING SLOWLY. WILL CONTINUE TO MONITOR.
--- NOTE | 2019-01-20 19:10 | NUR ---
ENDORSED PT TO PENNIE BELTRAN FOR CONTINUITY OF CARE. PT STABLE.
--- NOTE | 2019-01-20 19:11 | NUR ---
RECEIVED REPORT FROM DAY SHIFT NURSE CAMILO HOLDEN-PENNIE AT BEDSIDE. PT RESTING IN BED. PT AOX2-CONFUSED. DISCUSSED PLAN OF CARE AND PT VERBALIZED UNDERSTANDING. NO S/S OF RESPIRATORY DISTRESS OR DISCOMFORT NOTED AT THIS TIME. LEFT AC #20G RUNNING BICARB @100ML/HR. BED IN LOWEST POSITION, BED BREAKS ON, BOTH SIDE RAILS UP AND FALL PRECAUTIONS IN PLACE. CHADWICK CATHETER IN PLACE WITH DARK BROWN URINE. WILL CONTINUE TO MONITOR.
--- NOTE | 2019-01-20 20:00 | NUR ---
VITAL SIGNS TAKEN AND TOLERATED WELL. BLOOD GLUCOSE 82- NO INSULIN COVERAGE NEEDED. NO S/S OF RESPIRATORY DISTRESS OR DISCOMFORT NOTED AT THIS TIME. WILL CONTINUE TO MONITOR.
--- NOTE | 2019-01-20 20:33 | NUR ---
SCHEDULED MEDICATION FLAGYL GIVEN AND TOLERATED WELL. NO S/S OF RESPIRATORY DISTRESS OR DISCOMFORT NOTED AT THIS TIME. WILL CONTINUE TO MONITOR.
--- NOTE | 2019-01-20 22:00 | NUR ---
PT RESTING IN BED. ASSISTED PT WITH A DRINK OF WATER, SOME APPLE JUICE AND JELLO. PT TOLERATED WELL. NO S/S OF RESPIRATORY DISTRESS OR DISCOMFORT NOTED AT THIS TIME. WILL CONTINUE TO MONITOR.
--- NOTE | 2019-01-20 23:28 | NUR ---
PT C/O PAIN, MOANING FLACC -6. MEDICATED WITH TORADOL- PT TOLERATED WELL. NO S/S OF RESPIRATORY DISTRESS OR DISCOMFORT NOTED AT THIS TIME. WILL CONTINUE TO MONITOR.
--- NOTE | 2019-01-20 23:56 | NUR ---
PT IS MRSA POSITIVE. SPOKE WITH DR. BRYSON FOR ISOLATION PRECAUTION ORDERS AND RX. CHARGE NURSE LATISHA MAS.
[2019-01-21] VITALS: BP 104/40
[2019-01-21] MEDS ORDERED: LEVOFLOXACIN 250 MG/D5 PREMIX 50 ML IV SCH
--- NOTE | 2019-01-21 | NUR ---
VITAL SIGNS TAKEN AND TOLERATED WELL. NO S/S OF RESPIRATORY DISTRESS OR DISCOMFORT NOTED AT THIS TIME. WILL CONTINUE TO MONITOR.
--- NOTE | 2019-01-21 00:20 | NUR ---
ENDORSED PT CARE TO PHILLIP FOR CONTINUITY OF CARE.
--- NOTE | 2019-01-21 00:21 | NUR ---
PT LAYING IN BED. VITALS WNL. NO SIGNS OF RESP DISTRESS. RECEIVED PT IN STABLE CONDITION.
[2019-01-21] MEDS ORDERED: NACL 0.9% 250 ML IV ONE ×2 (00:50→05:25)
--- NOTE | 2019-01-21 01:23 | NUR ---
FLUID BOLUS TO PT PER MD ORDER. REPOSITIONED IN BED. BED IN LOW POSITION. CALL LIGHT WITHIN REACH. NO SIGNS OF RESP DISTRESS. BED ALARM ACTIVE. FALL PREC IN PLACE. CONTACT PREC IN PLACE. WILL CONTINUE TO MONITOR.
[2019-01-21] MEDS: HYDRAGUARD CREAM TP SCH ×2 (01:44→13:00)
[2019-01-21] MEDS: NYSTATIN POW 100 MU/GM 15 GM BTL TP SCH ×2 (01:44→13:00)
[2019-01-21] MEDS: Z-GUARD PASTE TP SCH ×2 (01:44→13:00)
--- NOTE | 2019-01-21 02:27 | NUR ---
ADMINISTERED MELATONIN PRN. EDUCATED ON SIDE EFFECTS. VERBALIZED UNDERSTANDING. TOLERATED WELL. WILL CONTINUE TO MONITOR.
[2019-01-21 04:00] VITALS: BP 100/41
--- NOTE | 2019-01-21 04:30 | NUR ---
PT AWAKE IN BED WATCHING TV. NO DISTRESS NOTED. BED IN LOW POSITION. CALL LIGHT WITHIN REACH. WILL CONTINUE TO MONITOR.
[2019-01-21] MEDS: metroNIDAZOLE 500 MG/NS PREMIX 100 ML IV SCH ×3 (05:18→20:13)
[2019-01-21] MEDS: BLOOD GLUCOSE MONITORING 1 DEV DEV FS SCH ×4 (05:54→20:05)
--- NOTE | 2019-01-21 05:55 | NUR ---
PT SITTING UP IN BED WATCHING TV. ABLE TO MAKE NEEDS KNOWN. WILL CONTINUE TO MONITOR.
--- NOTE | 2019-01-21 05:58 | NUR ---
BLOOD SUGAR 80. NO COVERAGE NEEDED.
[2019-01-21] MEDS: ALBUTEROL SULFATE/IPRATROPIU 3 ML SOL IH SCH ×3 (06:37→20:29)
--- NOTE | 2019-01-21 07:27 | NUR ---
GAVE BEDSIDE REPORT TO DAY SHIFT RN. PT IN STABLE CONDITION.
--- NOTE | 2019-01-21 07:30 | NUR ---
RECEIVED PT FROM RN CHEMICAL DEPENDENCY NURSES, PT IS AWAKE AND LYING ON THE BED WITH SIDE RAILS UP AND CALL LIGHT WITHIN REACH, BED IN LOW POSITION AND FALL PRECAUTION ENFORCED. PT HAS AN IV LINE ON THE LEFT HAND G.24 WITH SODIUM BICARBONATE INFUSING AT 100 ML/HR, INTACT, PT IS VERBALIZING A BACK PAIN AND WILL MEDICATE THE PT. WILL MONITOR PT.
[2019-01-21 07:44] LABS: HEMATOCRIT 27.2 % (36-48); MEAN CORPUSCULAR HEMOGLOBIN 30 pg (27-31); MEAN CORPUSCULAR HGB CONC 33 g/dL (33-37); PLATELET COUNT (AUTO) 157 K/uL (140-450); RED BLOOD CELL COUNT(AUTO) 2.99 MIL/uL (4.20-5.40); RED CELL DISTRIBUTION WIDTH 18.6 % (11.6-13.7); WHITE BLOOD COUNT (AUTO) 10.1 K/uL (4.8-10.8)
[2019-01-21 07:54] LABS: ANION GAP 18.2 (8-16); CARBON DIOXIDE 18.7 mmol/L (21-32); CHLORIDE 107 mmol/L (98-107); CREATININE 2.1 mg/dL (0.6-1.3); GLUCOSE 88 mg/dL (74-106); POTASSIUM 3.9 mmol/L (3.5-5.1); SODIUM SERUM 140 mmol/L (136-145)
[2019-01-21 08:00] VITALS: BP 100/41
[2019-01-21 08:01] LABS: MAGNESIUM 2.4 mg/dL (1.8-2.4); PHOSPHORUS 4.6 mg/dL (2.5-4.9)
[2019-01-21 08:20] LABS: UREA NITROGEN, BLOOD 66 mg/dL (7-18)
[2019-01-21 08:56] LABS: BASOPHILS % (MANUAL) 0 % (0-2); EOSINOPHILS % (MANUAL) 1 % (0-4); LYMPHOCYTES % (MANUAL) 15 % (20-46); MONOCYTES % (MANUAL) 5 % (5-12)
[2019-01-21] MEDS: HYDROCHLOROTHIAZIDE 25 MG TAB PO SCH (09:00)
[2019-01-21] MEDS: MUPIROCIN CA NASAL 2% 1GM TUBE NS SCH (09:21)
[2019-01-21] MEDS: LACTOBACILLUS RHAMNOSUS GG 1 EACH CAP PO SCH (09:21)
[2019-01-21] MEDS: ASPIRIN 81 MG TAB.CHEW PO SCH (09:22)
[2019-01-21] MEDS: FERROUS SULFATE 325 MG TABEC PO SCH (09:22)
[2019-01-21] MEDS: ASCORBIC ACID 500 MG TAB PO SCH (09:22)
[2019-01-21] MEDS: CHLORHEXADINE GLUC 2% CLOTH TP SCH (09:23)
[2019-01-21] MEDS: SODIUM BICARBONATE 8.4% 50 MEQ in NACL 0.45% 1,000 ML IV SCH ×2 (09:23→23:45)
[2019-01-21] MEDS: KETOROLAC 15 MG/ML VIAL IVP PRN ×2 (09:24→16:14)
--- NOTE | 2019-01-21 09:24 | NUR ---
PT VERBALIZED A PAIN RATE OF 8/10 ON HER BACK AND PAIN MEDICATION WAS GIVEN VIA IV PUSH, PARAMETERS WERE CHECKED AND WILL RE-ASSESS AND MONITOR PT.
[2019-01-21] MEDS: ENOXAPARIN 30 MG/0.3 ML SYR SUBQ SCH (09:25)
--- NOTE | 2019-01-21 11:14 | NUR ---
PT IS AWAKE AND LYING ON THE BED, BLOOD GLUCOSE CHECK DONE AND RESULT IS 82, NO INSULIN COVERAGE NEEDED, IV MEDICATION WAS GIVEN AND PT TOLERATED IT, NO SIGN OF DISTRESS NOTED AND WILL MONITOR PT.
[2019-01-21] MEDS: FLUCONAZOLE 200 MG/NS PREMIX 100 ML IV SCH (11:41)
[2019-01-21 12:00] VITALS: BP 102/32
[2019-01-21] MEDS: GAUZE TP SCH (13:00)
--- NOTE | 2019-01-21 13:30 | NUR ---
RT IS GIVING BREATHING TREATMENT NOW.
[2019-01-21] MEDS ORDERED: BOWEL EVACUANT DRINK 4,000 ML PDS PO SCH (14:00)
--- NOTE | 2019-01-21 14:04 | NUR ---
WOUND ASSESSMENT WAS DONE NOW, APPLIED MEDICATIONS AND REINFORCED WITH DRESSING, PT WAS REPOSITIONED TO THE RT LATERAL SIDE AND MADE COMFORTABLE, WILL MONITOR PT.
[2019-01-21 16:00] VITALS: BP 99/60
--- NOTE | 2019-01-21 16:14 | NUR ---
PT VERBALIZED A PAIN RATE OF 8/10 ON HER BACK AND ASKED FOR A PAIN MEDICATION, BP WAS CHECKED AND RESULT IS 99/60, O2 SATURATION IS 96% AND PULSE IS 79, DR. WILLETT WAS ASKED IF MEDICATION CAN BE GIVEN TO PT AND MD AGREED. WILL RE-ASSESS AND MONITOR PT.
--- NOTE | 2019-01-21 19:20 | NUR ---
ENDORSED PT TO SUMMER SCHOOL COORDINATOR NURSEKAREN FOR CONTINUITY OF CARE. PT TIS AWAKE AND STABLE AT THIS TIME.
--- NOTE | 2019-01-21 19:21 | NUR ---
REPORT RECEIVED FROM AM NURSE AT BEDSIDE. PT IN STABLE CONDITION. AAOX2. INTRODUCED SELF TO PT. BOARD UPDATED. PT C/O GENERALIZED PAIN ALL OVER. NO DIFFICULTY BREATHING. AFEBRILE. IV SITE L HAND 24G RUNNING BICARB 50MEQ 1/2NS@100ML/HR PATENT AND INTACT. SKIN WARM, DRY, AND NOT INTACT DUE TO SACRAL WOUND. PT DUE FOR COLONOSCOPY 01/22. BOWEL PREP IN ROOM. ENCOURAGED PT TO DRINK MUCH POSSIBLE. BED LOCKED IN LOW POSITION. CALL FITZGERALD WITHIN REACH. SAFETY PRECAUTIONS IN PLACE. ALL NEEDS MET AT THIS TIME.
--- NOTE | 2019-01-21 20:05 | NUR ---
BS 106. NO INSULIN COVERAGE NEEDED.
--- NOTE | 2019-01-21 20:13 | NUR ---
JINA HUNG AND RUNNING. PT TOLERATING WELL.
--- NOTE | 2019-01-21 21:05 | NUR ---
ATTEMPTED TO GIVEN PT BOWEL PREP TO DRINK. PT REFUSED. WILL CONTINUE TO ATTEMPT TO GIVE PT FLUIDS.
[2019-01-21] MEDS ORDERED: VANCOMYCIN PER PHARMACY MC PRN (21:50)
--- NOTE | 2019-01-21 22:00 | NUR ---
PT SITTING IN BED MOANING IN PAIN. WHEN ASKED WHERE THE PAIN IS SHE DOES NOT ANSWER. NO SOB. AFEBRILE. WILL CONTINUE TO MONITOR.
[2019-01-21] MEDS ORDERED: VANCOMYCIN 1GM/DEXT 5% PREMIX 200 ML IV ONE (23:00)
[2019-01-21] MEDS ORDERED: VANCOMYCIN 1,000 MG VIAL ONE (23:43)
--- NOTE | 2019-01-21 23:45 | NUR ---
GAGAN ORDOÑEZ AND RUNNING. NEW BAG OF SODIUM BICARB 50MEQ 1/2 NS SMITA. PT TOLERATING WELL.
[2019-01-22] VITALS: BP 147/36
--- NOTE | 2019-01-22 00:50 | NUR ---
PATIENT SITTING IN BED STILL MOANING IN PAIN. DENIED MEDICATION FOR PAIN. ATTEMPTED TO GIVE BOWEL PREP FLUIDS BUT PT DENIES THAT WELL. WILL CONTINUE TO TRY TO GIVEN BOWEL PREP FLUID.
[2019-01-22] MEDS: HYDRAGUARD CREAM TP SCH ×2 (01:00→14:19)
--- NOTE | 2019-01-22 01:00 | NUR ---
HYDRAGAURD, ZGAURD, AND MYCOSTATIN APPLIED.
[2019-01-22] MEDS: NYSTATIN POW 100 MU/GM 15 GM BTL TP SCH ×2 (01:01→14:20)
[2019-01-22] MEDS: Z-GUARD PASTE TP SCH ×2 (01:01→14:20)
[2019-01-22] MEDS: KETOROLAC 15 MG/ML VIAL IVP PRN ×2 (01:21→13:07)
--- NOTE | 2019-01-22 01:21 | NUR ---
TORADOL GIVEN FOR SEVERE PAIN. PT TOLERATED WELL.
--- NOTE | 2019-01-22 03:20 | NUR ---
PT LAYING IN BED SITTING UP MOANING IN PAIN. PT WAS ALREADY MEDICATED@0121 WITH NO DECREASE IN PAIN. UNABLE TO GIVE OTHER PAIN MEDICATION DUE TO DIASTOLIC BP BEING DECREASED. MD WAS INFORMED AND UNDERSTANDS THE SITUATION. WILL CONTINUE TO MONITOR THE PATIENT.
[2019-01-22] MEDS: PANTOPRAZOLE 40 MG TABEC PO SCH (05:30)
[2019-01-22] MEDS: BLOOD GLUCOSE MONITORING 1 DEV DEV FS SCH ×4 (05:40→21:00)
--- NOTE | 2019-01-22 05:40 | NUR ---
BS 115. NO INSULIN COVERAGE NEEDED.
--- NOTE | 2019-01-22 06:00 | NUR ---
PROTONIX HELD DUE TO NPO STATUS AND HAVING A COLONOSCOPY DONE LATER TODAY.
--- NOTE | 2019-01-22 06:25 | NUR ---
PHONED PT'S SON FOR VERBAL CONSENT OF COLONOSCOPY. CONSENT RECEIVED AND SIGNED.
[2019-01-22] MEDS: ALBUTEROL SULFATE/IPRATROPIU 3 ML SOL IH SCH ×3 (07:13→19:10)
--- NOTE | 2019-01-22 07:31 | NUR ---
REPORT GIVEN TO AM NURSE AT BEDSIDE. PT IN STABLE CONDITION.
--- NOTE | 2019-01-22 07:32 | NUR ---
RECEIVED REPORT FROM SHREDDER PICKER NURSE FOR CONTINUITY OF CARE. PT IN STABLE CONDITION. IV INTACT AND IN PLACE. BED IN LOW POSITION. BED ALARM ON. CALL LIGHT AT BEDSIDE.
[2019-01-22 07:36] LABS: BASOPHILS % (AUTO) 0.1 % (0.0-2.0); EOSINOPHILS % (AUTO) 0.3 % (0.0-4.0); HEMATOCRIT 24.8 % (36-48); LYMPHOCYTES # (AUTO) 1.2 K/uL (2.5-16.5); LYMPHOCYTES % (AUTO) 8.6 % (20.5-51.1); MEAN CORPUSCULAR HEMOGLOBIN 30 pg (27-31); MEAN CORPUSCULAR HGB CONC 32 g/dL (33-37); MONOCYTES % (AUTO) 6.8 % (1.7-9.3); NEUTROPHILS % (AUTO) 84.2 % (42.2-75.2); PLATELET COUNT (AUTO) 166 K/uL (140-450); RED BLOOD CELL COUNT(AUTO) 2.72 MIL/uL (4.20-5.40); WHITE BLOOD COUNT (AUTO) 14.3 K/uL (4.8-10.8)
[2019-01-22 07:50] LABS: ANION GAP 20.5 (8-16); CARBON DIOXIDE 18.4 mmol/L (21-32); CHLORIDE 103 mmol/L (98-107); CREATININE 2.3 mg/dL (0.6-1.3); GLUCOSE 118 mg/dL (74-106); POTASSIUM 3.9 mmol/L (3.5-5.1); SODIUM SERUM 138 mmol/L (136-145)
[2019-01-22 07:51] LABS: ALBUMIN 1.3 g/dL (3.4-5.0); BILIRUBIN,DIRECT 3.9 mg/dL (0.0-0.3); TOTAL BILIRUBIN 4.5 mg/dL (0.0-1.0)
[2019-01-22 07:52] LABS: MAGNESIUM 2.3 mg/dL (1.8-2.4); PHOSPHORUS 4.7 mg/dL (2.5-4.9)
[2019-01-22 07:57] LABS: UREA NITROGEN, BLOOD 71 mg/dL (7-18)
[2019-01-22 08:00] VITALS: BP 99/49
--- NOTE | 2019-01-22 08:32 | NUR ---
CRITICAL LAB CREAT 2.3, BUN 71, CA 7.9 DR. RILEY AWARE. PT IN STABLE CONDITION.
[2019-01-22] MEDS: LACTOBACILLUS RHAMNOSUS GG 1 EACH CAP PO SCH (09:00)
[2019-01-22] MEDS: HYDROCHLOROTHIAZIDE 25 MG TAB PO SCH (09:00)
[2019-01-22] MEDS: ASCORBIC ACID 500 MG TAB PO SCH (09:00)
[2019-01-22] MEDS: FERROUS SULFATE 325 MG TABEC PO SCH (09:00)
[2019-01-22] MEDS: ASPIRIN 81 MG TAB.CHEW PO SCH (09:00)
[2019-01-22] MEDS: FLUCONAZOLE 200 MG/NS PREMIX 100 ML IV SCH (11:51)
[2019-01-22] MEDS: CHLORHEXADINE GLUC 2% CLOTH TP SCH (11:52)
[2019-01-22] MEDS: MUPIROCIN CA NASAL 2% 1GM TUBE NS SCH (11:52)
--- NOTE | 2019-01-22 11:55 | NUR ---
PT OFF UNIT FOR COLONOSCOPY. PT IN STABLE CONDITION.
[2019-01-22] MEDS: ENOXAPARIN 30 MG/0.3 ML SYR SUBQ SCH (11:57)
[2019-01-22] MEDS ORDERED: MIDAZOLAM 2 MG/2 ML VIAL ONE (12:08)
[2019-01-22] MEDS ORDERED: fentaNYL 0.05 MG/ML VIAL ONE (12:08)
--- NOTE | 2019-01-22 12:34 | NUR ---
PT BACK ON UNIT NO COLONOSCOPY PERFORMED.
[2019-01-22] MEDS ORDERED: BOWEL EVACUANT DRINK 4,000 ML PDS NG SCH (13:00)
--- NOTE | 2019-01-22 14:13 | NUR ---
PT LYING IN BED WITH FAMILY AT BEDSIDE IN STABLE CONDITION. BED IN LOW POSITION. BED ALARM ON. CALL LIGHT AT BEDSIDE. WILL CONTINUE TO MONITOR.
[2019-01-22] MEDS: GAUZE TP SCH (14:19)
--- NOTE | 2019-01-22 15:03 | NUR ---
01/22/19 RD FOLLOW UP COMPLETED PLEASE REFER TO NUTRITION ASSESSMENT UNDER CARE ACTIVITY FOR ESTIMATED NUTRITIONAL NEEDS. 1. CONTINUE NPO MEDICALLY APPROPRIATE 2. IF PT PASSES SWALLOW EVALUATION, RECOMMEND CCHO 45 GM DIET WITH RECOMMENDED FOOD TEXTURE AND LIQUID THICKNESS 3. IF PT FAILS SWALLOW EVALUATION CONSIDER NUTRITION SUPPORT 4. RD TO FOLLOW-UP 2-3 DAYS, HIGH RISK STEVE TAY, RD
[2019-01-22 16:00] VITALS: BP 98/46
--- NOTE | 2019-01-22 18:00 | NUR ---
NG TUBE INSERTED AT THIS TIME BY TORI CHARGE NURSE. PT IN STABLE CONDITION. CHEST X-RAY ORDERED.
--- NOTE | 2019-01-22 19:27 | NUR ---
RECEIVED REPORT FROM DAY SHIFT RN. PATIENT STABLE BUT CONFUSED. SAFETY PRECAUTIONS IN PLACE, CALL LIGHT IN REACH.
--- NOTE | 2019-01-22 19:28 | NUR ---
GAVE REPORT TO SIGNAL MECHANIC NURSE FOR CONTINUITY OF CARE. PT IN STABLE CONDITION.
--- NOTE | 2019-01-22 19:29 | NUR ---
RECEIVED BEDSIDE REPORT FROM DAY SHIFT RNRASTA. PATIENT MOANING BUT WORDS ARE NOT DISCERNIBLE. VITALS ARE STABLE, NO SIGNS OF DISTRESS ON RA. NG TUBE IN PLACE, AWAITING CONFIRMATION OF PLACEMENT.
--- NOTE | 2019-01-22 20:00 | NUR ---
CHEST X-RAY DOES NOT CONFIRM PLACEMENT, FOLLOW UP KUB RECOMMENDED. DR. GUERRERO AWARE, ORDERED KUB. AWAITING PLACEMENT VERIFICATION BEFORE ADMINISTRATION OF BOWEL PREP VIA NGT.
[2019-01-22] MEDS: SODIUM BICARBONATE 8.4% 50 MEQ in NACL 0.45% 1,000 ML IV SCH (22:03)
--- NOTE | 2019-01-22 22:15 | NUR ---
PATIENT PULLED OUT NG TUBE PARTIALLY. ADVANCED TUBE INTO STOMACH AND AUSCULTATED EPIGASTRIC REGION. GASTRIC RESIDUAL OF 100 ML IS DARK BROWNISH RED. DR. GUERRERO AWARE. DISCOLORATION LIKELY DUE TO ENDOSCOPIC PROCEDURE DONE EARLIER TODAY.
[2019-01-23] VITALS: BP 102/43
--- NOTE | 2019-01-23 00:10 | NUR ---
PATIENT SLEEPING. MOANING SOFTLY, BUT NO SIGNS OF DISTRESS ON RA. VITALS STABLE.
[2019-01-23] MEDS: NYSTATIN POW 100 MU/GM 15 GM BTL TP SCH ×2 (01:00→13:53)
[2019-01-23] MEDS: HYDRAGUARD CREAM TP SCH ×2 (01:00→13:53)
[2019-01-23] MEDS: Z-GUARD PASTE TP SCH ×2 (01:00→13:53)
--- NOTE | 2019-01-23 03:06 | NUR ---
AWAITING FOLLOW UP KUB TO CONFIRM NGT PLACEMENT AFTER PATIENT DISLODGED TUBE.
--- NOTE | 2019-01-23 04:20 | NUR ---
XRAY CONFRIMED NGT PLACEMENT IN STOMACH. ADMINISTERED 120 CC GO-LYTELY. WILL CHECK RESIDUAL IN 30 MINUTES.
--- NOTE | 2019-01-23 04:50 | NUR ---
JOSIAH-LYTELY IS ABSORBING WELL. NO BOWEL MOVEMENT YET.
--- NOTE | 2019-01-23 05:45 | NUR ---
PATIENT HAS HAD 1300 ML OF GOLYTELY AND NO BOWEL MOVEMENT YET, PATIENT IS GETTING FLUIDS AT 100ML/HR AND HAS NOT MADE URINE. DR. GUERRERO AWARE. WILL ADD ENEMA TO MORNING MED ROUTINE.
[2019-01-23] MEDS: SODIUM BICARBONATE 8.4% 50 MEQ in NACL 0.45% 1,000 ML IV SCH ×2 (06:04→06:06)
[2019-01-23 06:21] LABS: BASOPHILS % (AUTO) 0.2 % (0.0-2.0); EOSINOPHILS % (AUTO) 0.2 % (0.0-4.0); HEMATOCRIT 24.9 % (36-48); HEMOGLOBIN 8.1 g/dL (12.0-16.0); LYMPHOCYTES # (AUTO) 1.3 K/uL (2.5-16.5); MEAN CORPUSCULAR HEMOGLOBIN 30 pg (27-31); MEAN CORPUSCULAR HGB CONC 32 g/dL (33-37); MONOCYTES # (AUTO) 0.9 K/uL (0.8-1.0); MONOCYTES % (AUTO) 5.8 % (1.7-9.3); NEUTROPHILS # (AUTO) 13.7 K/uL (1.8-7.7); NEUTROPHILS % (AUTO) 85.8 % (42.2-75.2); PLATELET COUNT (AUTO) 203 K/uL (140-450); RED BLOOD CELL COUNT(AUTO) 2.71 MIL/uL (4.20-5.40); RED CELL DISTRIBUTION WIDTH 19.7 % (11.6-13.7)
[2019-01-23] MEDS: PANTOPRAZOLE 40 MG TABEC PO SCH (06:24)
[2019-01-23] MEDS: BLOOD GLUCOSE MONITORING 1 DEV DEV FS SCH ×4 (06:34→20:16)
[2019-01-23 06:41] LABS: ALBUMIN 1.2 g/dL (3.4-5.0); ANION GAP 22.4 (8-16); ASPARTATE AMINOTRANSFERASE 368 U/L (15-37); CARBON DIOXIDE 16.8 mmol/L (21-32); CHLORIDE 103 mmol/L (98-107); CREATININE 2.7 mg/dL (0.6-1.3); GLUCOSE 112 mg/dL (74-106); POTASSIUM 4.2 mmol/L (3.5-5.1); SODIUM SERUM 138 mmol/L (136-145); TOTAL BILIRUBIN 5.3 mg/dL (0.0-1.0)
[2019-01-23 06:48] LABS: MAGNESIUM 2.2 mg/dL (1.8-2.4); PHOSPHORUS 4.8 mg/dL (2.5-4.9)
[2019-01-23] MEDS: ALBUTEROL SULFATE/IPRATROPIU 3 ML SOL IH SCH ×3 (06:51→20:17)
[2019-01-23] MEDS ORDERED: SODIUM PHOSPHATE 118 ML ENEM RC SCH (07:00)
[2019-01-23 07:09] LABS: UREA NITROGEN, BLOOD 77 mg/dL (7-18)
--- NOTE | 2019-01-23 07:20 | NUR ---
GAVE BEDSIDE REPORT TO DAY SHIFT RN. PATIENT IS STABLE.
--- NOTE | 2019-01-23 07:23 | NUR ---
RECEIVED BEDSIDE REPORT FROM TRIMMER OPERATOR THREE KNIFE NURSE FOR CONTINUITY OF CARE. PATIENT IS RESTING ON BED AT THIS TIME. PATIENT IS AOX1. FLACC 0. RESPIRATION EVEN AND UNLABORED. ON RA. NO SIGNS OF DISTRESS NOTED. NGT IN PLACE AND CONNECTED TO SUCTION. IV ON L HAND 24G, INTACT AND CLEAN, INFUSING PER MD ORDER. SKIN INTACT AND CLEAN. PATIENT IS BEDREST. CHADWICK IN PLACE AND DRAINING YELLOW URINE. SEQUENTIAL COMPRESSION SOCKS IN PLACE. FALL RISK PROTOCOL IN PLACE. INSTRUCTED PATIENT TO USE THE CALL LIGHT FOR ANY ASSISTANCE AND PATIENT WAS AWARE. BED IN LOW POSITION AND CALL LIGHT WITHIN REACH.
[2019-01-23 08:00] VITALS: BP 115/47
[2019-01-23] MEDS ORDERED: VANCOMYCIN 1GM/DEXT 5% PREMIX 200 ML IV SCH (09:30)
--- NOTE | 2019-01-23 09:35 | NUR ---
PATIENT IS RESTING ON BED AT THIS TIME. FLACC . NO SIGNS OF DISTRESS NOTED. SAFETY MEASURES IN PLACE.
[2019-01-23 09:49] LABS: PROTHROMBIN TIME 17.6 secs (10.8-13.4)
[2019-01-23] MEDS: ASPIRIN 81 MG TAB.CHEW PO SCH (10:36)
[2019-01-23] MEDS: HYDROCHLOROTHIAZIDE 25 MG TAB PO SCH (10:36)
[2019-01-23] MEDS: ASCORBIC ACID 500 MG TAB PO SCH (10:37)
[2019-01-23] MEDS: LACTOBACILLUS RHAMNOSUS GG 1 EACH CAP PO SCH (10:37)
[2019-01-23] MEDS: FERROUS SULFATE 325 MG TABEC PO SCH (10:37)
--- NOTE | 2019-01-23 10:37 | NUR ---
HOLD BP MED DUE TO LOW BP 115/47.
[2019-01-23] MEDS: MUPIROCIN CA NASAL 2% 1GM TUBE NS SCH (10:38)
[2019-01-23] MEDS: CHLORHEXADINE GLUC 2% CLOTH TP SCH (10:38)
[2019-01-23] MEDS: NACL 0.9% 1,000 ML IV SCH ×3 (10:38→21:49)
[2019-01-23] MEDS: ENOXAPARIN 30 MG/0.3 ML SYR SUBQ SCH (10:43)
--- NOTE | 2019-01-23 11:05 | NUR ---
PATIENT'S IV INFILTRATED AND LEAKING. D/C IV AND CANNULA INTACT. RESTART IV ON L FOREARM 22G, INTACT AND PATENT, INFUSING PER MD ORDER.
[2019-01-23] MEDS ORDERED: PHYTONADIONE 10 MG/ML AMP SUBQ SCH (11:45)
--- NOTE | 2019-01-23 12:10 | NUR ---
OBTAINED VERBAL CONSENT FROM SON MARELY FOR MIDLINE INSERT. VERIFIED BY TWO RN. MARELY AUTHORIZED AND ACKNOWLEDGED FOR THIS PROCEDURE.
[2019-01-23] MEDS: FLUCONAZOLE 200 MG/NS PREMIX 100 ML IV SCH (12:21)
--- NOTE | 2019-01-23 13:20 | NUR ---
PATIENT IS RESTING ON BED. NO SIGNS OF DISTRESS NOTED. SAFETY MEASURES IN PLACE.
[2019-01-23] MEDS: GAUZE TP SCH (13:54)
--- NOTE | 2019-01-23 14:27 | NUR ---
S.T. BEDSIDE SWALLOW EVAL COMPLETED See report for details. Pt presents w/ severe oropharyngeal dysphagia c/b bolus holding in oral cavity, with little to no active oral prep, delayed pharyngeal swallow response with gag response and wet vocal quality throughout eval. Pt is at high risk for aspiration. Recommend: 1) Continue NPO status w/ non-oral nutrition, hydration and meds. 2) Reassess in 2 days if pt appropriate. D/w RN Yuki. Pt unable to understand results/recommendations. Family/caregiver not present at time of eval. Time [id number]
--- NOTE | 2019-01-23 15:20 | NUR ---
ASSISTED MILK PICKUP TRUCK DRIVER TO CLEAN AND TURN PATIENT. PATIENT TOLERATED WELL. NO SIGNS OF DISTRESS NOTED. SAFETY MEASURES IN PLACE. BED IN LOW POSITION AND CALL LIGHT WITHIN REACH.
[2019-01-23 16:00] VITALS: BP 109/44
[2019-01-23 16:47] LABS: PROTHROMBIN TIME 18.9 secs (10.8-13.4)
--- NOTE | 2019-01-23 17:20 | NUR ---
PATIENT IS RESTING ON BED AT THIS TIME. FLACC 0. NO SIGNS OF DISTRESS NOTED. BED IN LOW POSITION AND CALL LIGHT WITHIN REACH.
[2019-01-23] MEDS ORDERED: PHYTONADIONE 5 MG TAB PO SCH (18:00)
--- NOTE | 2019-01-23 19:15 | NUR ---
ENDORSED PATIENT AT BEDSIDE TO CHEMICAL TECHNICIAN FOR CONTINUITY OF CARE. INFORMED CHEMICAL TECHNICIAN NURSE THAT PATIENT NEEDS TO FINISH THE BOWEL PREP FOR PROCEDURE TOMORROW. PATIENT IS RESTING ON BED AT THIS TIME. SAFETY MEASURES IN PLACE.
--- NOTE | 2019-01-23 19:16 | NUR ---
REPORT RECEIVED FROM AM NURSE AT BEDSIDE. PT IN STABLE CONDITION. AAOX1. INTRODUCED SELF TO PT. BOARD UPDATED. FLACC 0. NO SOB. AFEBRILE. IV SITE L FA 22G RUNNING NS@125ML/HR PATENT AND INTACT. PT ALSO HAS L UA MIDLINE SL PATENT AND INTACT. SKIN WARM, DRY, AND NOT INTACT DUE TO SACRAL PRESSURE ULCER. PT HAS NG TUBE IN PLACE. PT IS NON AMBULATORY AND BEDBOUND. ON CONTACT PRECAUTIONS FOR MRSA NARES. BED LOCKED IN LOW POSITION. CALL FITZGERALD WITHIN REACH. SAFETY PRECAUTIONS IN PLACE. ALL NEEDS MET AT THIS TIME.
--- NOTE | 2019-01-23 19:45 | NUR ---
PT HAS DECREASED BP. MD NOTIFIED. AWAITING ORDERS.
[2019-01-23] MEDS ORDERED: NACL 0.9% 1,000 ML IV ONE (19:50)
--- NOTE | 2019-01-23 20:16 | NUR ---
BS 107. NO INSULIN COVERAGE NEEDED.
--- NOTE | 2019-01-23 20:28 | NUR ---
ORDERED 1L NS BOLUS FOR DECREASED BP. HUNG AND RUNNING.
[2019-01-23] MEDS: LEVOFLOXACIN 250 MG/D5 PREMIX 50 ML IV SCH (21:49)
--- NOTE | 2019-01-23 21:49 | NUR ---
AYDEE ORDOÑEZ AND RUNNING. PT TOLERATING WELL.
--- NOTE | 2019-01-23 23:15 | NUR ---
PT LAYING IN BED SLEEPING SUPINE. NO S/S OF DISTRESS NOTED. GOLYTELY GIVEN THROUGH NGTUBE.
[2019-01-24] VITALS: BP 116/38
--- NOTE | 2019-01-24 01:00 | NUR ---
PT SLEEPING COMFORTABLY IN BED. NO S/S OF DISTRESS NOTED. GIVEN GOLYTELY THROUGH NGTUBE 75ML. WILL CONTINUE TO MONITOR.
[2019-01-24] MEDS: HYDRAGUARD CREAM TP SCH ×2 (01:17→12:45)
[2019-01-24] MEDS: Z-GUARD PASTE TP SCH ×2 (01:17→12:45)
--- NOTE | 2019-01-24 01:17 | NUR ---
HYDRAGUARD AND ZGUARD APPLIED.
--- NOTE | 2019-01-24 03:10 | NUR ---
PT SLEEPING COMFORTABLY. NO S/S OF DISTRESS NOTED. BOWEL PREP THROUGH NGTUBE GIVEN. WILL CONTINUE TO MONITOR.
--- NOTE | 2019-01-24 04:50 | NUR ---
PT AWAKE AND ALERT MOANING IN PAIN. BOWEL PREP IS STILL BEING GIVEN. WILL CONTINUE TO MONITOR.
[2019-01-24] MEDS: PANTOPRAZOLE 40 MG TABEC PO SCH (05:32)
--- NOTE | 2019-01-24 05:32 | NUR ---
PROTONIX HELD DUE TO NPO STATUS. GOLYTELY GIVEN THROUGH NGTUBE.
[2019-01-24] MEDS: BLOOD GLUCOSE MONITORING 1 DEV DEV FS SCH ×4 (05:34→21:21)
--- NOTE | 2019-01-24 05:34 | NUR ---
BS 101. NO INSULIN COVERAGE NEEDED.
[2019-01-24] MEDS: NACL 0.9% 1,000 ML IV SCH ×2 (07:00→17:01)
[2019-01-24 07:19] LABS: PROTHROMBIN TIME 14.8 secs (10.8-13.4)
[2019-01-24] MEDS: ALBUTEROL SULFATE/IPRATROPIU 3 ML SOL IH SCH ×3 (07:25→20:49)
--- NOTE | 2019-01-24 07:30 | NUR ---
REPORT GIVEN TO AM NURSE AT BEDSIDE. PT IN STABLE CONDITION.
--- NOTE | 2019-01-24 07:45 | NUR ---
PATIENT WAS AWAKE, RESPONSIVE TO NAME. RESPIRATION EVEN, UNLABOR ON ROOM AIR. SKIN DRY AND WARM. IV AND MIDLINE PATENT AND INTACT. FLACC 0. CHADWICK DRAINING CLEAR ORANGE URINE. NG TUBE PATENT AND IN PLACE. PLAN OF CARE WAS DISCUSSED WITH PATIENT. BED AT LOW POSITION, SIDE RAILS UP. CALL LIGHT WITHIN REACH.
[2019-01-24 08:00] VITALS: BP 96/33
[2019-01-24] MEDS: ASCORBIC ACID 500 MG TAB PO SCH (08:58)
[2019-01-24] MEDS: FERROUS SULFATE 325 MG TABEC PO SCH (08:58)
[2019-01-24] MEDS: LACTOBACILLUS RHAMNOSUS GG 1 EACH CAP PO SCH (08:58)
[2019-01-24] MEDS: ASPIRIN 81 MG TAB.CHEW PO SCH (08:59)
[2019-01-24] MEDS: HYDROCHLOROTHIAZIDE 25 MG TAB PO SCH (09:00)
[2019-01-24] MEDS: MUPIROCIN CA NASAL 2% 1GM TUBE NS SCH (09:00)
[2019-01-24] MEDS: CHLORHEXADINE GLUC 2% CLOTH TP SCH (09:08)
--- NOTE | 2019-01-24 09:30 | NUR ---
PATIENT WAS AWAKE, RESPIRATION EVEN, UNLABOR ON ROOM AIR. NO DISTRESS NOTED AT THIS TIME
[2019-01-24] MEDS: FLUCONAZOLE 200 MG/NS PREMIX 100 ML IV SCH (10:57)
--- NOTE | 2019-01-24 11:36 | NUR ---
PATIENT WAS REPOSITIONED, PERINEAL CARE AND CHADWICK CARE WAS GIVEN. WOUND CARE AND WOUND DRESSING WAS CHANGED PER ORDER. PATIENT TOLERATED WELL
[2019-01-24] MEDS ORDERED: TPN PER PHARMACY MC PRN (12:10)
[2019-01-24] MEDS: GAUZE TP SCH (12:45)
--- NOTE | 2019-01-24 13:10 | NUR ---
OBTAINED BIOPSY CONSENT BY ORALIA ALBER VIA TELEPHONE, WITNESSED BY 2 RNS
--- NOTE | 2019-01-24 15:00 | NUR ---
PATIENT WAS TRANSFERRED TO CT SCAN FOR BIOPSY. PATIENT IS STABLE AT THIS TIME
--- NOTE | 2019-01-24 15:10 | NUR ---
01/24/19 RD FOLLOW UP COMPLETED PLEASE REFER TO NUTRITION ASSESSMENT UNDER CARE ACTIVITY FOR ESTIMATED NUTRITIONAL NEEDS. 1. RECOMMEND PPN DUE DYSPHAGIA AND PREPARING FOR COLONOSCOPY 2. IF/WHEN PT BECOMES MEDICALLY STABLE CONSIDER ENTERAL NUTRITION AND A SWALLOW EVALUATION FOR PO DIET 3. RD TO FOLLOW-UP 2-3 DAYS, HIGH RISK STEVE TAY RD
[2019-01-24 16:00] VITALS: BP 98/42
[2019-01-24] MEDS ORDERED: LIDOCAINE 1% 500 MG/50 ML VIAL INJ SCH (16:00)
--- NOTE | 2019-01-24 16:00 | NUR ---
PATIENT WAS TRANSFERRED BACK FROM CT. VS WAS TAKEN. PATIENT WAS SLEEPING COMFORTABLY. NO DISTRESS NOTED AT THIS TIME.
[2019-01-24 16:49] LABS: BASOPHILS # (AUTO) 0.1 K/uL (0.00-0.22); BASOPHILS % (AUTO) 0.3 % (0.0-2.0); EOSINOPHILS % (AUTO) 0.1 % (0.0-4.0); HEMATOCRIT 24.7 % (36-48); HEMOGLOBIN 7.9 g/dL (12.0-16.0); LYMPHOCYTES # (AUTO) 0.9 K/uL (2.5-16.5); LYMPHOCYTES % (AUTO) 5.1 % (20.5-51.1); MEAN CORPUSCULAR HEMOGLOBIN 30 pg (27-31); MEAN CORPUSCULAR HGB CONC 32 g/dL (33-37); MEAN CORPUSCULAR VOLUME 94.1 fL (80-94); MONOCYTES % (AUTO) 5.6 % (1.7-9.3); NEUTROPHILS # (AUTO) 16.2 K/uL (1.8-7.7); NEUTROPHILS % (AUTO) 88.9 % (42.2-75.2); PLATELET COUNT (AUTO) 184 K/uL (140-450); RED BLOOD CELL COUNT(AUTO) 2.63 MIL/uL (4.20-5.40); RED CELL DISTRIBUTION WIDTH 20.9 % (11.6-13.7); WHITE BLOOD COUNT (AUTO) 18.3 K/uL (4.8-10.8)
[2019-01-24 17:04] LABS: ANION GAP 23.7 (8-16); CARBON DIOXIDE 16.9 mmol/L (21-32); CHLORIDE 104 mmol/L (98-107); CREATININE 2.6 mg/dL (0.6-1.3); GLUCOSE 96 mg/dL (74-106); POTASSIUM 3.6 mmol/L (3.5-5.1); SODIUM SERUM 141 mmol/L (136-145)
[2019-01-24 17:15] LABS: UREA NITROGEN, BLOOD 83 mg/dL (7-18)
--- NOTE | 2019-01-24 18:31 | NUR ---
PATIENT WAS SLEEPING COMFORTABLY. RESPIRATION EVEN, UNLABOR ON ROOM AIR. IV PATENT AND INTACT. FLACC 0. GO LYTELY WAS ADMINISTERED PER ORDER VIA NGT, 180 ML WAS ADMINISTERED AT THIS TIME. PATIENT TOLERATED WELL
[2019-01-24] MEDS ORDERED: BOWEL EVACUANT DRINK 4,000 ML PDS PO SCH (19:00)
--- NOTE | 2019-01-24 19:22 | NUR ---
ENDORSEMENT GIVEN TO FREIGHT SORTER NURSE. PATIENT IS STABLE AT THIS TIME
--- NOTE | 2019-01-24 19:23 | NUR ---
RECEIVED BEDSIDE REPORT FROM DAY SHIFT RN. [id number]. ALERT/ ORIENTED TO PERSON. DISCUSSED POC WITH PT. VERBALIZED UNDERSTANDING. NO SIGNS OF RESP DISTRESS OR DISCOMFORT. ROOM AIR. NG TUBE ALREADY IN PLACE. FALL RISK PREC IN PLACE. CONTACT PRECAUTIONS IN PLACE - MRSA NARES. PT NPO, SIGN ABOVE BED. L ARM 22G NS @125. MIDLINE IN KIRST[place]. INFUSING WELL. CLEAN DRY AND INTACT. SKIN IS NOT INTACT. SACRAL PRESSURE ULCER WOUND STAGE 2. SKIN TEAR ON BUTTOCKS. REDNESS TO RIGHT ARM NOTED. BED IN LOW POSITION. CALL LIGHT WITHIN REACH. WILL CONTINUE TO MONITOR.
--- NOTE | 2019-01-24 21:00 | NUR ---
HOB RAISED. ADMINISTERED 150CC OF GOLYTLE VIA NG TUBE FOR BOWEL PREP. TOLERATED WELL. NO SIGNS OF DISTRESS NOTED. WILL CONTINUE TO MONITOR.
--- NOTE | 2019-01-24 22:15 | NUR ---
ORALIA YAP, AT BEDSIDE. NO COMPLAINTS AT THIS TIME. WILL CONTINUE TO MONITOR.
--- NOTE | 2019-01-24 22:25 | NUR ---
ADMINISTERED ABOUT 100ML OF GOLYTELY THROUGH NGT, UNTIL PT STARTED GAGGING THEN VOMITED ABOUT 30ML.
--- NOTE | 2019-01-24 23:52 | NUR ---
ADMINISTERED ABOUT 120ML GOLYTELY THROUGH NGT. STOPPED ADMINISTRATION BECAUSE PT VOMITED AGAIN, THIS TIME IT WAS ABOUT 60ML. WILL ADMINISTER ZOFRAN BEFORE TRYING AGAIN.
[2019-01-25] VITALS (8 sets, daily range): BP systolic 96–129; BP diastolic 36–72
[2019-01-25] MEDS: ONDANSETRON 4 MG/2 ML VIAL IM/IVP PRN ×2 (00:11→04:57)
[2019-01-25] MEDS ORDERED: traMADol 50 MG TAB PO ONE (00:15)
[2019-01-25] MEDS ORDERED: CYCLOBENZAPRINE 10 MG TAB PO ONE (00:15)
[2019-01-25] MEDS: DEXT 5% /NACL 0.9% 1,000 ML IV SCH ×2 (00:30→18:45)
--- NOTE | 2019-01-25 00:34 | NUR ---
SPOKE TO DR SANTIAGO REGARDING PT'S PAIN LEVEL, BLOOD PRESSURE, GOLYTELY AND PT VOMITING WITH IT, AND PT HAVING DM AND BEING NPO STATUS. DR SANTIAGO CHANGED IVF TO D5 1/2NS, AND ORDERED TRAMADOL AND FLEXERIL FOR PAIN AND DISCOMFORT, AND SAID TO KEEP GIVING GOLYTELY. ADMINISTERED ORDERED MEDS THROUGH NGT AND PT VOMITED IMMEDIATELY WHILE FLUSHING NGT. MADE DR SANTIAGO AWARE.
[2019-01-25] MEDS ORDERED: diphenhydrAMINE 50 MG/ML VIAL IVP ONE (00:45)
[2019-01-25] MEDS: HYDRAGUARD CREAM TP SCH ×2 (01:11→12:45)
[2019-01-25] MEDS: Z-GUARD PASTE TP SCH ×2 (01:12→12:45)
--- NOTE | 2019-01-25 01:18 | NUR ---
PT WAS VERY RESTLESS, LET DR SANTIAGO KNOW AND HE ORDERED BENADRYL FOR PT. ADMINISTERED MEDICATION, PT TOLERATED WELL. GAVE ABOUT 180ML OF GOLYTELY, PT TOLERATED WITHOUT VOMIT NOW.
--- NOTE | 2019-01-25 01:30 | NUR ---
CLEANED PT AND REPOSITIONED. ASSESSED WOUND ON SACRAL REGION. DRESSING WAS DRY AND INTACT. NO DRAINAGE NOTED. CLEANED WOUND AND APPLIED ZGUARD. APPLIED CLEAN NEW DRESSING. TOLERATED WELL. NO COMPLAINTS AT THIS TIME. WILL CONTINUE TO MONITOR.
--- NOTE | 2019-01-25 02:10 | NUR ---
ADMINISTERED ABOUT 240ML OF GOLYTELY, PT TOLERATED WITHOUT VOMIT.
--- NOTE | 2019-01-25 03:55 | NUR ---
ADMINISTERED ABOUT 300ML OF GOLYTELY, PT TOLERATED WITHOUT VOMIT.
--- NOTE | 2019-01-25 04:33 | NUR ---
ADMINISTERED ABOUT 420ML OF GOLYTELY, PT TOLERATED WITHOUT VOMIT.
--- NOTE | 2019-01-25 05:01 | NUR ---
ADMINISTERED THE REST OF THE GOLYTELY, ABOUT 480ML, PT STARTED GAGGING BUT THERE WAS NO VOMIT. ADMINISTERED ZOFRAN AGAIN FOR NAUSEA, PT TOLERATED WELL.
[2019-01-25] MEDS: BLOOD GLUCOSE MONITORING 1 DEV DEV FS SCH ×4 (06:05→20:34)
[2019-01-25] MEDS: PANTOPRAZOLE 40 MG TABEC PO SCH (06:10)
--- NOTE | 2019-01-25 06:10 | NUR ---
HELD PROTONIX BECAUSE PT HAS NG TUBE AND PROTONIX IS ENTERIC COATING. CAN NOT BE CRUSHED. NO SIGNS OF DISTRESS NOTED. WILL CONTINUE TO MONITOR.
--- NOTE | 2019-01-25 07:29 | NUR ---
ENDORSED PT TO DAY SHIFT RN. PT IN STABLE CONDITION.
--- NOTE | 2019-01-25 07:30 | NUR ---
RECEIVED REPORT FROM GAS APPLIANCE SERVICER HELPER NURSE CONSUELO FOR CONTINUITY OF CARE. PT IN STABLE CONDITION. MID LINE INTACT AND PATENT. NG TUBE INTACT AND PATENT. ROOM AIR. SAFETY MEASURES IN PLACE. CALL LIGHT AT BEDSIDE. BED IN LOW POSITION. WILL CONTINUE TO MONITOR.
[2019-01-25] MEDS: ALBUTEROL SULFATE/IPRATROPIU 3 ML SOL IH SCH ×3 (07:46→19:12)
--- NOTE | 2019-01-25 09:02 | NUR ---
PT LYING IN BED IN STABLE CONDITION. RESPIRATIONS 16 WITH DEEP INHALATIONS. O2 SATURATION 96%. WILL CONTINUE TO MONITOR. BED IN LOW POSITION. BED ALARM ON.
[2019-01-25 09:27] LABS: HEMATOCRIT 23.7 % (36-48); HEMOGLOBIN 7.7 g/dL (12.0-16.0); MEAN CORPUSCULAR HEMOGLOBIN 30 pg (27-31); MEAN CORPUSCULAR HGB CONC 32 g/dL (33-37); MEAN CORPUSCULAR VOLUME 93.1 fL (80-94); PLATELET COUNT (AUTO) 199 K/uL (140-450); RED BLOOD CELL COUNT(AUTO) 2.55 MIL/uL (4.20-5.40); RED CELL DISTRIBUTION WIDTH 20.1 % (11.6-13.7); WHITE BLOOD COUNT (AUTO) 20.3 K/uL (4.8-10.8)
[2019-01-25 09:44] LABS: LYMPHOCYTES % (MANUAL) 5 % (20-46); MONOCYTES % (MANUAL) 4 % (5-12)
[2019-01-25] MEDS: MUPIROCIN CA NASAL 2% 1GM TUBE NS SCH (09:51)
[2019-01-25] MEDS: FERROUS SULFATE 325 MG TABEC PO SCH (09:51)
[2019-01-25] MEDS: ASPIRIN 81 MG TAB.CHEW PO SCH (09:52)
[2019-01-25] MEDS: CHLORHEXADINE GLUC 2% CLOTH TP SCH (09:52)
[2019-01-25] MEDS: ASCORBIC ACID 500 MG TAB PO SCH (09:52)
[2019-01-25] MEDS: LACTOBACILLUS RHAMNOSUS GG 1 EACH CAP PO SCH (09:52)
--- NOTE | 2019-01-25 10:15 | NUR ---
PT TRANSFERRED TO ICU FOR CONTINUITY OF CARE. PT IN STABLE CONDITION. ALL BELONGINGS TAKEN TO ICU WITH PT.
--- NOTE | 2019-01-25 10:15 | NUR ---
RECEIVED PT TRANSFERRED FROM TELEMETRY ROOM 126, OBTAINED REPORT AT BEDSIDE, PT IS LETHARGIC, UNABLE TO FOLLOW COMMANDS, BP 117/58, HR 86, TEMP 96.7F, RR 17, O2 SAT 100%, FLACC 3. NO S/S OF DISTRESS, CLEAR LUNG SOUNDS VICKY. SR ON RESERVATION SALES AGENT, +2 PITTING EDEMA TO BLE NOTED, LARGE DISTENDED ABDOMEN WITH HYPOACTIVE BOWEL SOUNDS, NGT TO LEFT NARES, POSITIVE PLACEMENT CHECKED, NPO EXCEPT MEDS AT THIS TIME, F/C IN PLACE WITH DARK LOLITA URINE VIA GRAVITY, SKIN IS WARM AND DRY TO TOUCH, OPEN WOUND PRESENT (SEE WOUND ASSESSMENT), SEVERE WEAKNESS TO ALL EXTREMITIES, HOB ELEVATED TO 30 DEGREES, SAFETY MEASURES IN PLACE, POSITION CHANGED FOR OFF LOAD PRESSURE, WILL CONTINUE TO MONITOR.
[2019-01-25] MEDS ORDERED: INSULIN LISPRO SLIDING SCALE 100 UNITS/ML VIAL SUBQ PRN (10:35)
[2019-01-25] MEDS ORDERED: DEXTROSE 50% 50 ML SYR IVP PRN (10:35)
--- NOTE | 2019-01-25 10:40 | NUR ---
ACCU CHECKED WITH 18MG/DL, D50 GIVEN, DR. RILEY MADE AWARE.
--- NOTE | 2019-01-25 11:00 | NUR ---
BLOOD GLUCOSE CHECK 216. PT STILL NOT RESPONSE.
[2019-01-25 11:08] LABS: CARBON DIOXIDE 18.2 mmol/L (21-32); CHLORIDE 108 mmol/L (98-107); CREATININE 2.5 mg/dL (0.6-1.3); GLUCOSE 125 mg/dL (74-106); POTASSIUM 3.2 mmol/L (3.5-5.1); PROTHROMBIN TIME 12.5 secs (10.8-13.4); SODIUM SERUM 143 mmol/L (136-145)
[2019-01-25 11:13] LABS: UREA NITROGEN, BLOOD 79 mg/dL (7-18)
--- NOTE | 2019-01-25 11:27 | NUR ---
DR. MACK CAME IN TO SEE PT'S AT BEDSIDE, PT IS MORE ALERT AND AWAKE, BS 216MG/DL AT THIS TIME, WILL FOLLOW UP WITH NEW ORDERS.
[2019-01-25] MEDS: FLUCONAZOLE 200 MG/NS PREMIX 100 ML IV SCH (11:33)
--- NOTE | 2019-01-25 11:40 | NUR ---
DR. RUGGIERO CAME IN TO SEE PT AT BEDSIDE, UPDATED PT'S CONDITION, WILL FOLLOW UP WITH NEW ORDERS.
[2019-01-25] MEDS: ALBUMIN HUMAN 25% 100 ML IV SCH ×2 (11:55→21:08)
--- NOTE | 2019-01-25 12:20 | NUR ---
DR. VANG CAME IN TO SEE PT'S AT BEDSIDE, UPDATED PT'S CONDITION, PER DR. VANG NOT GOING TO DO ANY PROCEDURE AT THIS TIME DUE TO PT'S CONDITION.
[2019-01-25] MEDS: GAUZE TP SCH (12:44)
[2019-01-25] MEDS ORDERED: VANCOMYCIN 1GM/DEXT 5% PREMIX 200 ML IV SCH (13:00)
[2019-01-25] MEDS ORDERED: KCL 20 MEQ/WATER INJ PREMIX 200 ML IV SCH (14:00)
[2019-01-25] MEDS: FUROSEMIDE 40 MG/4 ML VIAL IVP SCH ×2 (14:02→23:16)
--- NOTE | 2019-01-25 14:15 | NUR ---
PT IS TRANSFERRED FOR CT CHEST VIA BED, ACCOMPANIED WITH RN AND HORSE SHOER.
--- NOTE | 2019-01-25 14:35 | NUR ---
PT IS BACK FROM CT.
--- NOTE | 2019-01-25 14:40 | NUR ---
WOUND CARE DONE AT BEDSIDE.
--- NOTE | 2019-01-25 16:00 | NUR ---
NO S/S OF DISTRESS, VSS, FLACC 0, PM CARE AND F/C CARE PROVIDED, POSITION CHANGED FOR OFF LOAD PRESSURE.
--- NOTE | 2019-01-25 16:30 | NUR ---
ACCU CHECK WITH 170MG/DL, NO INSULIN COVERAGE AT THIS TIME PER DR. RILEY.
--- NOTE | 2019-01-25 18:00 | NUR ---
PT IS AWAKE, PT'S FAMILY MEMBERS AT BEDSIDE, NO S/S OF DISTRESS, VSS, POSITION CHANGED FOR OFF LOAD PRESSURE.
--- NOTE | 2019-01-25 19:25 | NUR ---
RECEIVED PATIENT ON ROOM AIR, PULSE OX SAT 99%. SCHEDULED BREATHING TREATMENT ADMINISTERED. TOLERATED TX WELL, NO ADVERSE SIDE EFFECTS. NO RESPIRATORY DISTRESS NOTED AT THIS TIME. WILL CONTINUE TO MONITOR.
--- NOTE | 2019-01-25 19:26 | NUR ---
REPORT GIVEN TO CMV DRIVER NURSE AT BEDSIDE FOR CONTINUE OF CARE. PT IS IN STABLE CONDITION AT THIS TIME.
--- NOTE | 2019-01-25 19:30 | NUR ---
RECEIVED REPORT FROM AM NURSE, SIDE RAILS UP X2, ALARMS IN PLACE, PT IS ON ROOM AIR, 02 SAT 99%, AWAKE, BREATHING REGULARLY, UNLABORED, LUNG SOUNDS CLEAR THROUGHOUT, PERRLA 3MM, SLUGGISH, A&O X3, S1S2 PRESENT, HR REGULAR, CAP REFILL <3S, 2+ BILATERAL UPPER AND LOWER EXTREMITIES, BOWEL SOUNDS ACTIVE IN ALL QUADRANTS, HYPOACTIVE, GENERALIZED WEAKNESS ON UPPER AND LOWER EXTREMITIES, DRESSING DRY AND INTACT ON BUTTOCKS AND SACRAL AREA, SKIN DISCOLORATION ON BILATERAL FOREARM, CHADWICK IN PLACE, NGT IN PLACE, IV FLUIDS RUNNING.
--- NOTE | 2019-01-25 19:55 | NUR ---
CALLED THE RESIDENT DOCTORS AND SPOKE WITH DR. HOBBS, WANTED TO CLARIFY IF HUMALOG SLIDING SCALE IS STILL TO BE HELD AT THIS TIME. RECEIVED NEW ORDERS. WILL COMMUNICATE TO THE NEXT SHIFT.
--- NOTE | 2019-01-25 20:30 | NUR ---
DR. GAMINO AT BEDSIDE. UPDATED ON PT CONDITION. NO NEW ORDERS.
--- NOTE | 2019-01-25 22:00 | NUR ---
CALLED DR. SANTIAGO TO INFORM REGARDING THE CURRENT AMMONIA LEVEL. PER DR. SANTIAGO, HE WILL PUT IN NEW ORDERS.
[2019-01-25] MEDS: LEVOFLOXACIN 250 MG/D5 PREMIX 50 ML IV SCH (22:27)
[2019-01-25] MEDS ORDERED: LACTULOSE 20 GM/30 ML UDC ONE (23:40)
[2019-01-25] MEDS: RIFAXIMIN 550 MG TAB PO SCH (23:47)
[2019-01-25] MEDS: LACTULOSE 20 GM/30 ML UDC PO SCH (23:47)
[2019-01-26] VITALS (12 sets, daily range): BP systolic 86–112; BP diastolic 37–56
--- NOTE | 2019-01-26 | NUR ---
PT AT BED EYES CLOSED, BREATHING REGULARLY, 2L NC IN PLACE, IV FLUIDS RUNNING, SIDE RAILS UP X2, ALARMS IN PLACE, HOB 30 DEGREES, WILL CONTINUE TO MONITOR PT.
[2019-01-26] MEDS: HYDRAGUARD CREAM TP SCH ×2 (01:24→13:19)
[2019-01-26] MEDS: Z-GUARD PASTE TP SCH ×2 (01:24→13:20)
--- NOTE | 2019-01-26 04:00 | NUR ---
AM CARE PROVIDED, PT TOLERATED PROCEDURE WELL. DRESSING CHANGED PT AT BED AWAKE, BREATHING REGULARLY, 2L NC IN PLACE, IV FLUIDS RUNNING, SIDE RAILS UP X2, ALARMS IN PLACE, HOB 30 DEGREES, WILL CONTINUE TO MONITOR PT.
[2019-01-26] MEDS: ALBUMIN HUMAN 25% 100 ML IV SCH ×3 (05:16→21:29)
[2019-01-26 05:46] LABS: PHOSPHORUS 5.1 mg/dL (2.5-4.9)
[2019-01-26 05:47] LABS: CARBON DIOXIDE 18.5 mmol/L (21-32); CHLORIDE 108 mmol/L (98-107); CREATININE 2.7 mg/dL (0.6-1.3); GLUCOSE 194 mg/dL (74-106); POTASSIUM 3.5 mmol/L (3.5-5.1); SODIUM SERUM 146 mmol/L (136-145)
[2019-01-26 05:52] LABS: UREA NITROGEN, BLOOD 78 mg/dL (7-18)
[2019-01-26 06:25] LABS: EOSINOPHILS % (AUTO) 0.2 % (0.0-4.0); HEMATOCRIT 21.5 % (36-48); LYMPHOCYTES % (AUTO) 4.6 % (20.5-51.1); MEAN CORPUSCULAR HEMOGLOBIN 31 pg (27-31); MEAN CORPUSCULAR HGB CONC 32 g/dL (33-37); MEAN CORPUSCULAR VOLUME 95.4 fL (80-94); MONOCYTES % (AUTO) 4.7 % (1.7-9.3); NEUTROPHILS % (AUTO) 90.5 % (42.2-75.2); PLATELET COUNT (AUTO) 157 K/uL (140-450); RED BLOOD CELL COUNT(AUTO) 2.25 MIL/uL (4.20-5.40); RED CELL DISTRIBUTION WIDTH 20.5 % (11.6-13.7)
[2019-01-26] MEDS: PANTOPRAZOLE 40 MG TABEC PO SCH (06:30)
[2019-01-26 06:38] LABS: HEMOGLOBIN 6.9 g/dL (12.0-16.0)
[2019-01-26] MEDS: BLOOD GLUCOSE MONITORING 1 DEV DEV FS SCH ×4 (06:59→21:00)
--- NOTE | 2019-01-26 07:00 | NUR ---
PROTONIX ORDERED NOT GIVEN DUE TO MEDICATION BEING ENTERIC COATED AND CANNOT CRUSH. LASIX ALSO HELD DUE TO LOW BP. ATTEMPTED TO CALL RESIDENT DOCTORS BUT NO ANSWER. WILL COMMUNICATE WITH THE MORNING SHIFT TO FOLLOW-UP.
[2019-01-26] MEDS: FUROSEMIDE 40 MG/4 ML VIAL IVP SCH ×3 (07:04→22:30)
--- NOTE | 2019-01-26 07:27 | NUR ---
REPORT GIVEN TO MORNING RN, NICHOLE, FOR CONTINUITY OF CARE. VS STABLE AT THIS TIME.
--- NOTE | 2019-01-26 07:30 | NUR ---
RECEIVED BEDSIDE REPORT FROM SMALL ANIMAL VETERINARIAN RN. PT IS AAOX3, ABLE TO FOLLOW COMMANDS AND MAKE NEEDS KNOWN. AFEBRILE. NORMAL SINUS RHYTHM ON MONITOR. S1 +S2 HEARD. PT IS ON ROOM AIR, O2 SAT 99%, CLEAR LUNG SOUNDS BILATERALLY, NO SOB NOTED. BREATHING EVEN, UNLABORED. ABDOMEN LARGE, DISTENDED WITH HYPOACTIVE BOWEL SOUNDS. NGT TO LEFT NARES IN PLACE, POSITIVE PLACEMENT CHECKED, RESIDUAL 20 ML. PERIPHERAL IV G18 TO LEFT FOREARM SALINE LOCKED. MID LINE TO KIRSTIN PATENT, INTACT, RUNNING D2NS AT 60 ML/HR. CHADWICK CATH IN PLACE DRAINING LOLITA URINE TO GRAVITY DRAINAGE BAG. SKIN IS DRY AND WARM TO TOUCH, SEE WOUND ASSESSMENT FOR OPEN WOUNDS. +2 PITTING EDEMA TO BUE/BLE NOTED. HOB AT 30 DEGREES, BED IN LOWEST POSITION LOCKED. CALL LIGHT WITHIN REACH. REPOSITIONED FOR OFF LOAD PRESSURE, WILL CONTINUE TO MONITOR.
--- NOTE | 2019-01-26 07:35 | NUR ---
DR. GEORGE AND RESIDENT GROUP IN TO SEE PT. WILL FOLLOW UP ON ORDERS.
--- NOTE | 2019-01-26 08:00 | NUR ---
PT SEEN AND EXAMINED BY DR. MACK. WILL FOLLOW UP ON ORDERS.
--- NOTE | 2019-01-26 08:05 | NUR ---
TELEPHONE CONSENT FOR HEMODIALYSIS AND BLOOD TRANSFUSION RECEIVED FROM SON, ALBER WEBB.
[2019-01-26] MEDS: ALBUTEROL SULFATE/IPRATROPIU 3 ML SOL IH SCH ×3 (08:22→19:25)
--- NOTE | 2019-01-26 08:30 | NUR ---
BEDSIDE SWALLOW EVAL DONE, PT ABLE TO SWALLOW APPLE SAUCE, JELLO AND DRINK WATER WITH SPOON. NO COUGHING NOTED. DR. ROSEMARY MAS.
[2019-01-26] MEDS ORDERED: MORPHINE SULFATE 2 MG/ML SYR IVP SCH (08:55)
[2019-01-26] MEDS: ASCORBIC ACID 500 MG TAB PO SCH (09:15)
[2019-01-26] MEDS: FERROUS SULFATE 325 MG TABEC PO SCH (09:15)
[2019-01-26] MEDS: LACTOBACILLUS RHAMNOSUS GG 1 EACH CAP PO SCH (09:15)
[2019-01-26] MEDS: PANTOPRAZOLE 40 MG INJ VIAL IVP SCH (09:15)
[2019-01-26] MEDS: ASPIRIN 81 MG TAB.CHEW PO SCH (09:15)
[2019-01-26] MEDS: LACTULOSE 20 GM/30 ML UDC PO SCH ×2 (09:15→21:28)
[2019-01-26] MEDS: RIFAXIMIN 550 MG TAB PO SCH ×2 (09:15→21:28)
[2019-01-26] MEDS: DEXT 5% /NACL 0.9% 1,000 ML IV SCH (09:16)
--- NOTE | 2019-01-26 10:15 | NUR ---
DR. RUGGIERO IN TO SEE PT. WILL FOLLOW UP ON ORDERS.
[2019-01-26] MEDS: FLUCONAZOLE 200 MG/NS PREMIX 100 ML IV SCH (10:27)
--- NOTE | 2019-01-26 11:30 | NUR ---
VENECIA CATH INSERTION AT BEDSIDE. TIME OUT CALLED. NO SIGNS OF ACUTE DISTRESS NOTED AT THIS TIME.
[2019-01-26] MEDS: MIDODRINE 5 MG TAB PO SCH ×2 (12:10→21:00)
[2019-01-26] MEDS: GAUZE TP SCH (13:19)
--- NOTE | 2019-01-26 13:35 | NUR ---
BLOOD TRANSFUSION STARTED ORDERED. PT IS AFEBRILE, VSS. WILL CONTINUE TO MONITOR.
--- NOTE | 2019-01-26 14:16 | NUR ---
01/26/19 RD FOLLOW UP COMPLETED PLEASE REFER TO NUTRITION ASSESSMENT UNDER CARE ACTIVITY FOR ESTIMATED NUTRITIONAL NEEDS. 1. IF PT PASSES SWALLOW EVAL, ADVANCE TO RENAL DIET WITH RECOMMENDED FOOD TEXTURE AND LIQUID THICKNESS 2. IF PO DIET ADVANCES RECOMMEND ORAL SUPPLEMENT NEPRO BID FOR MICHEL 3. IF PO DIET <75% CONSIDER ENTERAL NUTRITION TO SUPPLEMENT PO DIET WITH FORMULA: NEPRO WITH CARBSTEADY AT GOAL RATE 30 ML/HR -THIS WILL PROVIDE 1296 KCAL, 58 GM OF PROTEIN WITH MEETS 75% OF KCAL NEEDS AND 100% OF PROTEIN NEEDS. FREE WATER FLUSH [address] TO FOLLOW-UP 2-3 DAYS, HIGH RISK STEVE TAY RD
--- NOTE | 2019-01-26 15:15 | NUR ---
BLOOD TRANSFUSION COMPLETED. VSS. AFEBRILE. NO SIGNS OF ADVERSE REACTIONS NOTED.
[2019-01-26] MEDS: FUROSEMIDE 20 MG TAB PO SCH ×2 (17:30→20:00)
--- NOTE | 2019-01-26 17:30 | NUR ---
TOM PAULA (DIALYSIS) MADE AWARE OF HEMODIALYSIS ORDER BY CHARGE NURSE.
--- NOTE | 2019-01-26 18:20 | NUR ---
HEMODIALYSIS AT BEDSIDE. VSS AT THIS TIME. NO S/SX OF DISTRESS NOTED. WILL CONTINUE TO MONITOR.
--- NOTE | 2019-01-26 18:32 | NUR ---
DR. HOBBS IN TO SEE PATIENT. WILL CONTINUE TO MONITOR.
--- NOTE | 2019-01-26 19:20 | NUR ---
RECEIVED REPORT FROM AM NURSE, SIDE RAILS UP X2, ALARMS IN PLACE, PT IS ON ROOM AIR, 02 SAT 99%, AWAKE, BREATHING REGULARLY, UNLABORED, LUNG SOUNDS CLEAR THROUGHOUT, PERRLA 3MM, SLUGGISH, A&O X3, S1S2 PRESENT, HR REGULAR, CAP REFILL <3S, 2+ BILATERAL UPPER AND LOWER EXTREMITIES, BOWEL SOUNDS ACTIVE IN ALL QUADRANTS, HYPOACTIVE, GENERALIZED WEAKNESS ON UPPER AND LOWER EXTREMITIES, DRESSING DRY AND INTACT ON BUTTOCKS AND SACRAL AREA, SKIN DISCOLORATION ON BILATERAL FOREARM, CHADWICK IN PLACE, NGT IN PLACE, IV FLUIDS RUNNING. LEFT VENECIA CATH IJ IN PLACE, DRESSING INTACT AND DRY.
--- NOTE | 2019-01-26 19:31 | NUR ---
REPORT GIVEN TO BURN OUT TENDER LACE RN FOR CONTINUITY OF CARE. PT IS IN STABLE CONDITION.
--- NOTE | 2019-01-26 19:35 | NUR ---
PER DR. HOBBS, DO NOT GIVE BENADRYL SCHEDULED AT 1999. ENDORSED TO MEATMAN RN, MARY.
--- NOTE | 2019-01-26 20:10 | NUR ---
DIALYSIS NURSE STATED NO NEED TO CALL TOM PAULA REGARDING DIALYSIS ORDER TOMORROW. BUTTONHOLE TACKER ALREADY NOTIFIED HER.
--- NOTE | 2019-01-26 21:47 | NUR ---
DR GAMINO AT BEDSIDE. UPDATED MD ON PT CONDITION. NO NEW ORDERS. WILL CONTINUE TO MONITOR PT.
[2019-01-26 22:10] LABS: BASOPHILS # (AUTO) 0.1 K/uL (0.00-0.22); BASOPHILS % (AUTO) 0.4 % (0.0-2.0); EOSINOPHILS % (AUTO) 0.1 % (0.0-4.0); HEMATOCRIT 23.3 % (36-48); HEMOGLOBIN 7.6 g/dL (12.0-16.0); MEAN CORPUSCULAR HEMOGLOBIN 30 pg (27-31); MEAN CORPUSCULAR HGB CONC 33 g/dL (33-37); MONOCYTES # (AUTO) 0.8 K/uL (0.8-1.0); MONOCYTES % (AUTO) 4.8 % (1.7-9.3); NEUTROPHILS # (AUTO) 15.4 K/uL (1.8-7.7); NEUTROPHILS % (AUTO) 88.7 % (42.2-75.2); PLATELET COUNT (AUTO) 113 K/uL (140-450); RED BLOOD CELL COUNT(AUTO) 2.53 MIL/uL (4.20-5.40); RED CELL DISTRIBUTION WIDTH 21.1 % (11.6-13.7); WHITE BLOOD COUNT (AUTO) 17.4 K/uL (4.8-10.8)
--- NOTE | 2019-01-26 22:24 | NUR ---
DR. HOBBS AT BEDSIDE. INFORMED HER REGARDING THE BG. NO INSULIN COVERAGE TO GIVE AT THIS TIME.
--- NOTE | 2019-01-26 23:49 | NUR ---
CALLED THE RESIDENT DOCTOR, SPOKE WITH DR. HOBBS AND INFORMED HER REGARDING THE XRAY RESULT. NO NEW ORDERS RECEIVED.
[2019-01-27] VITALS (12 sets, daily range): BP systolic 96–116; BP diastolic 45–98
[2019-01-27] MEDS: DEXT 5% /NACL 0.9% 1,000 ML IV SCH ×2 (01:07→07:55)
[2019-01-27] MEDS: Z-GUARD PASTE TP SCH ×2 (01:28→14:44)
[2019-01-27] MEDS: HYDRAGUARD CREAM TP SCH ×2 (01:29→14:44)
--- NOTE | 2019-01-27 02:15 | NUR ---
PT AT BED EYES CLOSED, BREATHING REGULARLY, IV FLUIDS RUNNING, SIDE RAILS UP X2, ALARMS IN PLACE, HOB 30 DEGREES, WILL CONTINUE TO MONITOR PT
--- NOTE | 2019-01-27 03:20 | NUR ---
MORNING CARE PROVIDED TO PT. TOLERATED BEING TURNED AND REPOSITIONED. RESPIRATIONS ARE EVEN AND UNLABORED. KEPT HOB AT 30 DEGREES. ALL SAFETY PRECAUTIONS ARE KEPT IN PLACE. WILL CONTINUE TO MONITOR PT.
[2019-01-27] MEDS: MIDODRINE 5 MG TAB PO SCH ×3 (04:40→20:49)
[2019-01-27] MEDS: ALBUMIN HUMAN 25% 100 ML IV SCH ×2 (04:40→13:16)
[2019-01-27] MEDS: FUROSEMIDE 40 MG/4 ML VIAL IVP SCH (06:00)
[2019-01-27 06:12] LABS: HEPATITIS A ANTIBODY IGM Negative (Negative); HEPATITIS B CORE AB TOTAL Negative (Negative); HEPATITIS B SURFACE ANTIBODY Non Reactive (.); HEPATITIS B SURFACE ANTIGEN Negative (Negative)
[2019-01-27] MEDS: BLOOD GLUCOSE MONITORING 1 DEV DEV FS SCH ×4 (06:57→20:48)
[2019-01-27] MEDS: ALBUTEROL SULFATE/IPRATROPIU 3 ML SOL IH SCH ×3 (07:21→19:10)
--- NOTE | 2019-01-27 07:30 | NUR ---
REPORT GIVEN TO [place] FOR CONTINUITY OF CARE. VS STABLE AT THIS TIME
--- NOTE | 2019-01-27 07:30 | NUR ---
RECEIVED REPORT FROM BUTCHER SUPERVISOR RN. PT A/O X2, FOLLOWS SIMPLE COMMANDS. SKIN DRY AND WARM TO TOUCH. PUPILS REACTIVE. LUNGS CLEAR. ON ROOM AIR. BREATHING NORMALLY. SPO2 100%. NG-TUBE IN RIGHT NARE. POSITIVE PLACEMENT. RESIDUAL 10 ML NOTED. KIRSTIN MIDLINE NOTED. HAS GOOD BLOOD RETURNS. FLUSHED. INTACT IV SITE. D5%NS RUNNING AT 60 ML/HR. LIJ VENECIA CATH IN PLACE. COVERED WITH DRESSING. DRESSING INTACT. ABDOMEN SOFT, ROUND AND NON-TENDER. ACTIVE BOWEL SOUND. CHADWICK CATH IN PLACE DRAINING DARK LOLITA URINE VIA GRAVITY. EDEMATOUS BOTH UPPER AND LOWER EXTREMITIES. BRUISES AND ECCHYMOSIS NOTED ON BOTH UPPER EXTREMITIES. BLACK DRY SCAB NOTED ON RIGHT LOWER BACK. PRESSURE ULCER NOTED ON SACROCOCCYX, COVERED WITH DRESSING, INTACT DRESSING. SKIN TEAR NOTED ON ABDOMINAL FOLD. KEPT HOB ELEVATED. BED IN LOW POSITION LOCKED. WILL CONTINUE TO MONITOR. Addendum: 01/28/19 at 1530 by Bree Solis RN NG-TUBE IN LEFT NARE.
--- NOTE | 2019-01-27 08:00 | NUR ---
MORNING CARE PROVIDED. KEPT PT CLEAN AND DRY. REPOSITIONED. WILL CONTINUE TO MONITOR.
--- NOTE | 2019-01-27 08:37 | NUR ---
PT EVALUATED BY DR. GAMINO.
[2019-01-27] MEDS: PANTOPRAZOLE 40 MG INJ VIAL IVP SCH (09:19)
[2019-01-27] MEDS: LACTULOSE 20 GM/30 ML UDC PO SCH ×2 (09:20→20:49)
[2019-01-27] MEDS: LACTOBACILLUS RHAMNOSUS GG 1 EACH CAP PO SCH (09:20)
[2019-01-27] MEDS: ASPIRIN 81 MG TAB.CHEW PO SCH (09:20)
[2019-01-27] MEDS: FERROUS SULFATE 325 MG TABEC PO SCH (09:21)
[2019-01-27] MEDS: ASCORBIC ACID 500 MG TAB PO SCH (09:21)
[2019-01-27] MEDS: ACETAMINOPHEN 325 MG TAB PO PRN (09:22)
[2019-01-27] MEDS: RIFAXIMIN 550 MG TAB PO SCH ×2 (09:22→20:49)
[2019-01-27 10:17] LABS: BASOPHILS % (AUTO) 0.1 % (0.0-2.0); EOSINOPHILS # (AUTO) 0.1 K/uL (0-0.4); EOSINOPHILS % (AUTO) 0.9 % (0.0-4.0); HEMATOCRIT 21.8 % (36-48); HEMOGLOBIN 7.1 g/dL (12.0-16.0); LYMPHOCYTES # (AUTO) 0.9 K/uL (2.5-16.5); LYMPHOCYTES % (AUTO) 6.4 % (20.5-51.1); MEAN CORPUSCULAR HEMOGLOBIN 30 pg (27-31); MEAN CORPUSCULAR HGB CONC 33 g/dL (33-37); MEAN CORPUSCULAR VOLUME 91.7 fL (80-94); MONOCYTES # (AUTO) 0.9 K/uL (0.8-1.0); MONOCYTES % (AUTO) 6.4 % (1.7-9.3); NEUTROPHILS # (AUTO) 12.2 K/uL (1.8-7.7); NEUTROPHILS % (AUTO) 86.2 % (42.2-75.2); PLATELET COUNT (AUTO) 102 K/uL (140-450); RED BLOOD CELL COUNT(AUTO) 2.38 MIL/uL (4.20-5.40); RED CELL DISTRIBUTION WIDTH 21.2 % (11.6-13.7); WHITE BLOOD COUNT (AUTO) 14.1 K/uL (4.8-10.8)
--- NOTE | 2019-01-27 10:20 | NUR ---
RESTING IN BED. A/O X2. MAKES NEEDS KNOWN. VSS. HOB ELEVATED. NO C/O PAIN. WILL CONTINUE TO MONITOR.
[2019-01-27 10:28] LABS: ANION GAP 22.1 (8-16); CARBON DIOXIDE 17.8 mmol/L (21-32); CHLORIDE 109 mmol/L (98-107); CREATININE 2.3 mg/dL (0.6-1.3); GLUCOSE 165 mg/dL (74-106); SODIUM SERUM 146 mmol/L (136-145); UREA NITROGEN, BLOOD 57 mg/dL (7-18)
[2019-01-27 10:31] LABS: POTASSIUM 2.9 mmol/L (3.5-5.1); PROTHROMBIN TIME 13.5 secs (10.8-13.4)
[2019-01-27 10:45] LABS: MAGNESIUM 1.7 mg/dL (1.8-2.4); PHOSPHORUS 3.9 mg/dL (2.5-4.9)
[2019-01-27] MEDS: FLUCONAZOLE 200 MG/NS PREMIX 100 ML IV SCH (11:16)
[2019-01-27] MEDS ORDERED: POTASSIUM CHLORIDE 40 MEQ, LIDOCAINE MPF 1% - 5 mL VIAL 25 MG in NACL 0.9% 250 ML IV SCH (11:30)
--- NOTE | 2019-01-27 12:00 | NUR ---
NO CHANGE IN LOC. VSS. AFEBRILE. ON ROOM AIR. SPO2 99%.
[2019-01-27] MEDS: GAUZE TP SCH (14:30)
[2019-01-27] MEDS ORDERED: MAGNESIUM OXIDE 400 MG TAB NG SCH (15:30)
[2019-01-27] MEDS: traMADol 50 MG TAB PO PRN (16:31)
--- NOTE | 2019-01-27 17:00 | NUR ---
NO CHANGE IN LOC. VSS. HOB ELEVATED. BED IN LOW POSITION LOCKED. ADMINISTERED PAIN MEDICINE PER ORDER. SON AT THE BEDSIDE. CONTINUE TO MONITOR.
--- NOTE | 2019-01-27 17:30 | NUR ---
. PT ALERT AWAKE. HR 78 RR 12 SPO2 100% BP 98/49. DIALYSIS STARTED. DIALYSIS NURSE AT THE BEDSIDE.
--- NOTE | 2019-01-27 18:29 | NUR ---
BT DONE BY DIALYSIS NURSE.
--- NOTE | 2019-01-27 19:25 | NUR ---
RECEIVED REPORT FROM MORNING RN, YOLANDA, FOR CONTINUITY OF CARE. VS STABLE AT THIS TIME. AFEBRILE. FLACC 0. PT DOES NOT APPEAR TO BE EXPERIENCING ANY DISCOMFORT AT THIS TIME. PERRL. PT ABLE TO FOLLOW SIMPLE COMMANDS. LUNG SOUNDS CLEAR. PT IN ROOM AIR. RESPIRATIONS ARE EVEN AND UNLABORED. PT DENIES SOB. OXYGEN SATURATION WNL. S1+S2 HEARD. PULSES ARE PALPABLE IN ALL EXTREMITIES. BP WNL. PT CURRENTLY HAVING DIALYSIS AT THIS TIME. SR WITH BBB ON THE MONITOR. ABDOMEN ROUND, SOFT AND NONDISTENDED. BS ACTIVE IN ALL QUADRANTS. NGT IN PLACE THROUGH LEFT NARES. PLACEMENT CHECKED. NO RESIDUAL ASPIRATED. NO BM AT THIS TIME. PT HAS RIGHT UPPER ARM MIDLINE AND LEFT IJ VENECIA CATH. DRESSINGS ARE CLEAN. LINES ARE PATENT AND ASYMPTOMATIC. PT HAS D5NS AT 60ML/HR. CHADWICK CATHETER IN PLACE. URINE IS CLOUDY AND DARK LOLITA. ALL SAFETY PRECAUTIONS ARE IN PLACE. KEPT EXTREMITIES ELEVATED. CALL LIGHT WITHIN REACH. WILL CONTINUE TO MONITOR PT.
--- NOTE | 2019-01-27 19:29 | NUR ---
REPORT GIVEN TO MANAGER CARDIOVASCULAR RN FOR CONTINUITY OF CARE. PT ON STABLE CONDITION.
--- NOTE | 2019-01-27 19:40 | NUR ---
OFFERED PT HER DINNER BUT REFUSED AT THIS TIME.
[2019-01-27] MEDS ORDERED: VANCOMYCIN 1GM/DEXT 5% PREMIX 200 ML IV SCH (21:00)
--- NOTE | 2019-01-27 22:10 | NUR ---
PT NOTED WITH A LARGE BM. PT CLEANED AND LINENS CHANGED. PT TOLERATED BEING TURNED WELL. KEPT HOB AT 30 DEGREES. PT DOES NOT APPEAR TO BE EXPERIENCING ANY DISCOMFORT. WILL CONTINUE TO MONITOR PT.
[2019-01-27] MEDS: LEVOFLOXACIN 250 MG/D5 PREMIX 50 ML IV SCH (22:22)
--- NOTE | 2019-01-27 22:40 | NUR ---
STARTED ADMINISTERING SECOND UNIT OF BLOOD ORDERED. PT AFEBRILE. VS WNL. WILL CONTINUE TO MONITOR CLOSELY.
--- NOTE | 2019-01-27 23:10 | NUR ---
CURRENTLY, NO ADVERSE REACTION NOTED FROM BLOOD TRANSFUSION. VS REMAINS STABLE. SINUS ARRHYTHMIA ON MONITOR. STILL AFEBRILE. ALL SAFETY PRECAUTIONS REMAINS IN PLACE. WILL CONTINUE TO MONITOR PT.
[2019-01-28] VITALS (12 sets, daily range): BP systolic 96–124; BP diastolic 46–66
[2019-01-28] MEDS: HYDRAGUARD CREAM TP SCH ×2 (00:22→12:49)
[2019-01-28] MEDS: Z-GUARD PASTE TP SCH ×2 (00:22→12:48)
--- NOTE | 2019-01-28 01:03 | NUR ---
NO CHANGE IN PT'S CONDITION AT THIS TIME. VS STABLE. BLOOD INFUSION ALMOST DONE. BP WNL. RESPIRATIONS ARE EVEN AND UNLABORED. PT DENIES ANY PAIN AT THIS TIME. WILL CONTINUE TO MONITOR PT.
--- NOTE | 2019-01-28 01:30 | NUR ---
SECOND UNIT OF BLOOD DONE INFUSING. VS REMAINS STABLE. PT DENIES ANY DISCOMFORT AT THIS TIME.
[2019-01-28] MEDS: traMADol 50 MG TAB PO PRN ×2 (01:47→18:53)
--- NOTE | 2019-01-28 02:52 | NUR ---
PT'S EYES ARE CLOSED. VS STABLE. RESPIRATIONS ARE EVEN AND UNLABORED. ALL SAFETY PRECAUTIONS IN PLACE. HOB AT 30 DEGREES. BED AT LOWEST POSSIBLE POSITION. WILL CONTINUE TO MONITOR PT.
[2019-01-28] MEDS: DEXT 5% /NACL 0.9% 1,000 ML IV SCH (04:12)
[2019-01-28] MEDS: MIDODRINE 5 MG TAB PO SCH ×3 (04:13→20:24)
--- NOTE | 2019-01-28 05:05 | NUR ---
CHECKED PT FOR ANOTHER BM, NOTHING NOTED AT THIS TIME. PT TURNED AND REPOSITIONED.
--- NOTE | 2019-01-28 05:54 | NUR ---
DR. BELLO IN THE UNIT TO SEE PT. UPDATED HIM REGARDING PT'S CONDITION
[2019-01-28 06:19] LABS: ANION GAP 20.8 (8-16); CARBON DIOXIDE 18.3 mmol/L (21-32); CHLORIDE 110 mmol/L (98-107); GLUCOSE 183 mg/dL (74-106); POTASSIUM 3.1 mmol/L (3.5-5.1); SODIUM SERUM 146 mmol/L (136-145); UREA NITROGEN, BLOOD 41 mg/dL (7-18)
[2019-01-28 06:20] LABS: EOSINOPHILS # (AUTO) 0.1 K/uL (0-0.4); EOSINOPHILS % (AUTO) 0.5 % (0.0-4.0); HEMATOCRIT 32.3 % (36-48); HEMOGLOBIN 10.9 g/dL (12.0-16.0); LYMPHOCYTES # (AUTO) 0.8 K/uL (2.5-16.5); LYMPHOCYTES % (AUTO) 6.3 % (20.5-51.1); MEAN CORPUSCULAR HEMOGLOBIN 30 pg (27-31); MEAN CORPUSCULAR HGB CONC 34 g/dL (33-37); MEAN CORPUSCULAR VOLUME 89.8 fL (80-94); MONOCYTES # (AUTO) 0.9 K/uL (0.8-1.0); NEUTROPHILS # (AUTO) 11.5 K/uL (1.8-7.7); NEUTROPHILS % (AUTO) 86.2 % (42.2-75.2); PLATELET COUNT (AUTO) 79 K/uL (140-450); RED CELL DISTRIBUTION WIDTH 19.4 % (11.6-13.7); WHITE BLOOD COUNT (AUTO) 13.4 K/uL (4.8-10.8)
[2019-01-28 06:28] LABS: MAGNESIUM 1.7 mg/dL (1.8-2.4); PHOSPHORUS 2.9 mg/dL (2.5-4.9)
[2019-01-28] MEDS: BLOOD GLUCOSE MONITORING 1 DEV DEV FS SCH ×4 (06:42→20:24)
--- NOTE | 2019-01-28 07:17 | NUR ---
REPORT GIVEN TO MORNING RN, YOLANDA, FOR CONTINUITY OF CARE. VS STABLE AT THIS TIME.
--- NOTE | 2019-01-28 07:18 | NUR ---
RECEIVED REPORT FROM CLIENT SUPPORT REPRESENTATIVE RN. PT A/O X2, FOLLOWS SIMPLE COMMANDS. SKIN DRY AND WARM TO TOUCH. PUPILS REACTIVE TO LIGHT. NG-TUBE IN PLACE. LUNGS CLEAR. IN ROOM AIR, SPO2 96%. BREATHING NORMALLY. POSITIVE PLACEMENT. KIRSTIN MIDLINE NOTED. HAS GOOD BLOOD RETURNS. FLUSHED. DRESSING INTACT. D5%NS RUNNING AT 60 ML/HR. LIJ VENECIA CATH IN PLACE. COVERED WITH DRESSING. INTACT DRESSING. ABDOMEN SOFT, ROUND AND NON-TENDER. ACTIVE BOWEL SOUND. CHADWICK CATH IN PLACE DRAINING DARK LOLITA URINE IN SMALL AMOUNT VIA GRAVITY. EDEMATOUS BOTH UPPER AND LOWER EXTREMITIES. BRUISES AND ECCHYMOSIS NOTED ON BOTH UPPER EXTREMITIES. BLACK DRY SCAB NOTED ON RIGHT LOWER BACK. PRESSURE ULCER NOTED ON SACROCOCCYX, OPEN WOUND ON LOWER BUTTOCK COVERED WITH DRESSING, INTACT DRESSING. SKIN TEAR NOTED ON ABDOMINAL FOLD. KEPT HOB ELEVATED. BED IN LOW POSITION LOCKED. WILL CONTINUE TO MONITOR.
[2019-01-28] MEDS: ALBUTEROL SULFATE/IPRATROPIU 3 ML SOL IH SCH ×3 (07:28→19:26)
[2019-01-28] MEDS ORDERED: VANCOMYCIN PER PHARMACY MC PRN (08:05)
--- NOTE | 2019-01-28 08:07 | NUR ---
PT EVALUATED BY DR. FLORES. UPDATED PT CONDITION.
--- NOTE | 2019-01-28 08:08 | NUR ---
DR. WALKER MADE AWARE OF LAB RESULTS.
[2019-01-28] MEDS: PANTOPRAZOLE 40 MG INJ VIAL IVP SCH (08:37)
[2019-01-28] MEDS: RIFAXIMIN 550 MG TAB PO SCH ×2 (08:38→20:24)
[2019-01-28] MEDS: FERROUS SULFATE 325 MG TABEC PO SCH (08:38)
[2019-01-28] MEDS: ASCORBIC ACID 500 MG TAB PO SCH (08:38)
[2019-01-28] MEDS: ASPIRIN 81 MG TAB.CHEW PO SCH (08:38)
[2019-01-28] MEDS: LACTOBACILLUS RHAMNOSUS GG 1 EACH CAP PO SCH (08:39)
[2019-01-28] MEDS: LACTULOSE 20 GM/30 ML UDC PO SCH ×2 (08:39→20:24)
[2019-01-28] MEDS: ACETAMINOPHEN 325 MG TAB PO PRN ×2 (08:41→23:26)
--- NOTE | 2019-01-28 09:06 | NUR ---
RESIDUAL NOTED [address] WALKER MADE AWARE. TUBE FEEDING NOT STARTED PER DR. WALKER. ADMINISTERED MEDICINES PER ORDER. TOLERATING WELL. HOB ELEVATED. BED IN LOW POSITION LOCKED. IN ROOM AIR. SPO2 100%.
[2019-01-28] MEDS: FLUCONAZOLE 200 MG/NS PREMIX 100 ML IV SCH (11:12)
--- NOTE | 2019-01-28 11:47 | NUR ---
FAMILY AT THE BEDSIDE. UPDATED PT STATUS.
--- NOTE | 2019-01-28 12:26 | NUR ---
AFEBRILE. NO SOB OR ACUTE RESPIRATORY DISTRESS NOTED. NO CHANGE IN CONDITION. VSS. CONTINUE TO MONITOR.
[2019-01-28] MEDS: GAUZE TP SCH (12:48)
--- NOTE | 2019-01-28 13:05 | NUR ---
WOUND CARE PROVIDED. REPOSITIONED. PT CLEAN AND DRY. HOB ELEVATED. KEPT BED IN LOW POSITION LOCKED.
--- NOTE | 2019-01-28 13:08 | NUR ---
EVALUATED BY DR. YADAV. UPDATED PT STATUS.
[2019-01-28] MEDS ORDERED: MAG SULF 2000 MG/WATER PREMIX 50 ML IV SCH (13:30)
[2019-01-28] MEDS ORDERED: POTASSIUM CHLORIDE 10 MEQ TABER PO SCH (14:00)
[2019-01-28] MEDS ORDERED: POTASSIUM CHLORIDE 40 MEQ, LIDOCAINE MPF 1% - 5 mL VIAL 25 MG in NACL 0.9% 250 ML IV SCH (16:00)
--- NOTE | 2019-01-28 16:02 | NUR ---
TOM MADE AWARE OF HD SCHEDULED FOR TOMORROW MORNING.
--- NOTE | 2019-01-28 16:55 | NUR ---
PT ALERT AND ORIENTED. VSS. RESIDUAL NOTED [address] WALKER MADE AWARE. OKAY TO START NG-TUBE FEEDING. FEEDING STARTED PER ORDERED. HOB ELEVATED.
--- NOTE | 2019-01-28 18:33 | NUR ---
PT REMAINED AFEBRILE. BP WNL. NO SOB OR ACUTE RESPIRATORY DISTRESS NOTED. ROOM AIR SATURATING 97%. ON NG-TUBE FEEDING. HOB ELEVATED. BED IN LOW POSITION LOCKED.
--- NOTE | 2019-01-28 19:08 | NUR ---
REPORT GIVEN TO STRADDLE BUGGY OPERATOR RN FOR CONTINUITY OF CARE. PT ON STABLE CONDITION.
--- NOTE | 2019-01-28 19:30 | NUR ---
RECEIVED REPORT FROM MORNING RN, YOLANDA, FOR CONTINUITY OF CARE. VS STABLE AT THIS TIME. AFEBRILE. FLACC 0. PT DOES NOT APPEAR TO BE EXPERIENCING ANY DISCOMFORT AT THIS TIME. PERRL. PT ABLE TO FOLLOW SIMPLE COMMANDS. LUNG SOUNDS CLEAR. PT IN ROOM AIR. RESPIRATIONS ARE EVEN AND UNLABORED. PT DENIES SOB. OXYGEN SATURATION WNL. S1+S2 HEARD. PULSES ARE PALPABLE IN ALL EXTREMITIES. BP WNL. SR ON THE MONITOR. ABDOMEN ROUND, SOFT AND NONDISTENDED. BS ACTIVE IN ALL QUADRANTS. NGT IN PLACE THROUGH LEFT NARES. PLACEMENT CHECKED. NEPRO RUNNING AT 30ML/HR. RESIDUAL ASPIRATED WAS 200ML. HELD FEEDING AT THIS TIME D/T HIGH RESIDUAL PER PARAMETERS SET. PT HAS RIGHT UPPER ARM MIDLINE AND LEFT IJ VENECIA CATH. DRESSINGS ARE CLEAN. LINES ARE PATENT AND ASYMPTOMATIC. PT HAS D5NS AT 15ML/HR. CHADWICK CATHETER IN PLACE. URINE IS CLOUDY AND DARK LOLITA. ALL SAFETY PRECAUTIONS ARE IN PLACE. KEPT EXTREMITIES ELEVATED. CALL LIGHT WITHIN REACH. WILL CONTINUE TO MONITOR PT.
--- NOTE | 2019-01-28 21:20 | NUR ---
PT NOTED TO HAVE A LARGE BM THAT IS GREEN AND LOOSE. ALL LINENS WERE CHANGED. PT TOLERATED BEING TURNED AND REPOSITIONED FAIRLY. NO SOB NOTED. OXYGEN SATURATION WNL IN ROOM AIR. KEPT HOB AT 30 DEGREES AND ALL SAFETY PRECAUTIONS REMAIN IN PLACE. WILL CONTINUE TO MONITOR PT.
--- NOTE | 2019-01-28 22:03 | NUR ---
DR. GAMINO AT BEDSIDE TO SEE PT. INFORMED HIM REGARDING PT'S CONDITIONS. RECEIVED NO NEW ORDERS AT THIS TIME
--- NOTE | 2019-01-28 22:10 | NUR ---
NO CHANGE IN PT'S CONDITION AT THIS TIME. VS STABLE. PT'S EYES ARE CLOSED. RESPIRATIONS ARE EVEN AND UNLABORED. ALL SAFETY PRECAUTIONS REMAINS IN PLACE. WILL CONTINUE TO MONITOR PT.
--- NOTE | 2019-01-28 23:30 | NUR ---
CHECKED NGT FOR RESIDUAL AT WAS ONLY 80ML. RESUMED FEEDING PER ORDER. WILL CONTINUE TO MONITOR.
[2019-01-29] VITALS (11 sets, daily range): BP systolic 94–125; BP diastolic 44–70
[2019-01-29] MEDS: HYDRAGUARD CREAM TP SCH ×2 (00:38→12:13)
[2019-01-29] MEDS: Z-GUARD PASTE TP SCH ×2 (00:38→12:14)
--- NOTE | 2019-01-29 02:48 | NUR ---
VS STABLE. SR ON MONITOR. PT DENIES ANY PAIN AT THIS TIME. DOES NOT APPEAR TO BE EXPERIENCING ANY DISCOMFORT. RESPIRATIONS ARE EVEN AND UNLABORED. HOB AT 30 DEGREES. ALL SAFETY PRECAUTIONS ARE IN PLACE. WILL CONTINUE TO MONITOR PT.
[2019-01-29] MEDS: MIDODRINE 5 MG TAB PO SCH ×3 (04:24→21:21)
--- NOTE | 2019-01-29 04:52 | NUR ---
MORNING CARE PROVIDED TO PT. PT TOLERATED BEING TURNED AND REPOSITIONED. VS REMAINS STABLE. CHECKED FEEDING RESIDUAL AND ONLY ASPIRATED 60ML. ALL SAFETY PRECAUTIONS REMAIN IN PLACE. WILL CONTINUE TO MONITOR PT.
[2019-01-29 06:09] LABS: BASOPHILS # (AUTO) 0.1 K/uL (0.00-0.22); BASOPHILS % (AUTO) 0.5 % (0.0-2.0); EOSINOPHILS # (AUTO) 0.1 K/uL (0-0.4); EOSINOPHILS % (AUTO) 0.7 % (0.0-4.0); HEMATOCRIT 34.2 % (36-48); HEMOGLOBIN 11.3 g/dL (12.0-16.0); LYMPHOCYTES # (AUTO) 0.9 K/uL (2.5-16.5); LYMPHOCYTES % (AUTO) 5.8 % (20.5-51.1); MEAN CORPUSCULAR HEMOGLOBIN 30 pg (27-31); MEAN CORPUSCULAR HGB CONC 33 g/dL (33-37); MEAN CORPUSCULAR VOLUME 91.6 fL (80-94); MONOCYTES # (AUTO) 0.9 K/uL (0.8-1.0); MONOCYTES % (AUTO) 5.4 % (1.7-9.3); NEUTROPHILS # (AUTO) 14.2 K/uL (1.8-7.7); NEUTROPHILS % (AUTO) 87.6 % (42.2-75.2); PLATELET COUNT (AUTO) 78 K/uL (140-450); RED BLOOD CELL COUNT(AUTO) 3.73 MIL/uL (4.20-5.40); RED CELL DISTRIBUTION WIDTH 20.6 % (11.6-13.7); WHITE BLOOD COUNT (AUTO) 16.2 K/uL (4.8-10.8)
[2019-01-29] MEDS: BLOOD GLUCOSE MONITORING 1 DEV DEV FS SCH ×4 (06:27→21:21)
[2019-01-29] MEDS: DEXT 5% /NACL 0.9% 1,000 ML IV SCH (06:28)
[2019-01-29 06:36] LABS: ANION GAP 20.1 (8-16); CARBON DIOXIDE 17.2 mmol/L (21-32); CHLORIDE 111 mmol/L (98-107); CREATININE 2.5 mg/dL (0.6-1.3); GLUCOSE 156 mg/dL (74-106); POTASSIUM 3.3 mmol/L (3.5-5.1); SODIUM SERUM 145 mmol/L (136-145); UREA NITROGEN, BLOOD 46 mg/dL (7-18)
[2019-01-29 06:41] LABS: MAGNESIUM 2.1 mg/dL (1.8-2.4); PHOSPHORUS 3.5 mg/dL (2.5-4.9)
[2019-01-29 06:41] LABS: PROTHROMBIN TIME 13.3 secs (10.8-13.4)
[2019-01-29] MEDS: ALBUTEROL SULFATE/IPRATROPIU 3 ML SOL IH SCH ×3 (07:16→19:51)
--- NOTE | 2019-01-29 07:20 | NUR ---
GAVE REPORT TO MORNING RN, NICHOLE, FOR CONTINUITY OF CARE. VS STABLE AT THIS TIME.
--- NOTE | 2019-01-29 07:30 | NUR ---
RECEIVED REPORT FROM SYSTEMS SECURITY CONSULTANT RN. PT IS AAOX2, FOLLOWS SIMPLE COMMANDS. AFEBRILE. PERRL. SINUS RHYTHM ON MONITOR. PT IS IN ROOM AIR, LUNGS CLEAR BILATERALLY. O2 SAT 95%, NO SOB NOTED. NGT IN PLACE TO LEFT NARE, POSITIVE PLACEMENT CHECKED, RESIDUALS 400 ML, TUBE FEEDING HELD ORDERED. ABDOMEN ROUND, SOFT, NONTENDER W/ ACTIVE BOWEL SOUNDS. MIDLINE TO KIRSTIN PATENT, INTACT W/ GOOD BLOOD RETURNS. D5%NS RUNNING AT 15 ML/HR. [facility] CATH IN PLACE. [place] CATH IN PLACE DRAINING DARK [place] URINE VIA GRAVITY. EDEMATOUS BOTH UPPER AND LOWER EXTREMITIES. BRUISES AND ECCHYMOSIS NOTED ON BOTH UPPER EXTREMITIES. SKIN IS NON INTACT (SEE WOUND ASSESSMENT). DRESSING TO SACRAL AREA DRY AND INTACT. SKIN DRY AND WARM TO TOUCH. HOB 30 DEGREES, BED IN LOW POSITION LOCKED. CALL LIGHT WITHIN REACH. WILL CONTINUE TO MONITOR.
--- NOTE | 2019-01-29 07:45 | NUR ---
HEMODIALYSIS STARTED AT BEDSIDE. VSS AT THIS TIME. WILL CONTINUE TO MONITOR.
[2019-01-29] MEDS: ASPIRIN 81 MG TAB.CHEW PO SCH (08:41)
[2019-01-29] MEDS: ASCORBIC ACID 500 MG TAB PO SCH (08:41)
[2019-01-29] MEDS: FERROUS SULFATE 325 MG TABEC PO SCH (08:41)
[2019-01-29] MEDS: LACTOBACILLUS RHAMNOSUS GG 1 EACH CAP PO SCH (08:41)
[2019-01-29] MEDS: LACTULOSE 20 GM/30 ML UDC PO SCH ×2 (08:41→21:20)
[2019-01-29] MEDS: ACETAMINOPHEN 325 MG TAB PO PRN (08:41)
[2019-01-29] MEDS: RIFAXIMIN 550 MG TAB PO SCH ×2 (08:41→21:20)
--- NOTE | 2019-01-29 09:20 | NUR ---
MEDICATIONS ADMINISTERED ORDERED. TUBE FEEDING RESIDUALS STILL 400 ML, TF ON HOLD ORDERED.
--- NOTE | 2019-01-29 09:25 | NUR ---
PT SEEN AND EXAMINED BY DR. PRATHER. WILL FOLLOW UP ON ORDERS.
[2019-01-29] MEDS ORDERED: NOREPINEPHRINE 8 MG in DEXTROSE 5% 250 ML IV PRN (09:40)
[2019-01-29] MEDS: PANTOPRAZOLE 40 MG INJ VIAL IVP SCH (09:43)
[2019-01-29] MEDS ORDERED: NOREPINEPHRINE 4 MG in DEXTROSE 5% 250 ML IV PRN ×2 (09:50→10:25)
--- NOTE | 2019-01-29 10:00 | NUR ---
TUBE FEEDING RESIDUALS 300 ML AT THIS TIME. WILL CONTINUE TO MONITOR.
--- NOTE | 2019-01-29 10:50 | NUR ---
HEMODIALYSIS COMPLETED. BP 101/81 HR 81, PT STILL ON ROOM AIR, SPO2 100%. NO SIGNS OF DISTRESS NOTED AT THIS TIME. WILL CONTINUE TO MONITOR.
--- NOTE | 2019-01-29 11:05 | NUR ---
CONTINUE TO HOLD TUBE FEEDING. RESIDUAL 270 ML.
[2019-01-29] MEDS: FLUCONAZOLE 200 MG/NS PREMIX 100 ML IV SCH (11:37)
--- NOTE | 2019-01-29 12:00 | NUR ---
PT SEEN BY DR. FLORES. WILL FOLLOW UP ON ORDERS.
--- NOTE | 2019-01-29 12:05 | NUR ---
TUBE FEEDING RESIDUAL 250 ML AT THIS TIME.
[2019-01-29] MEDS: GAUZE TP SCH (12:13)
[2019-01-29] MEDS: NYSTATIN CRE 100 MU/GM 15 GM TUBE TP SCH (12:13)
--- NOTE | 2019-01-29 12:18 | NUR ---
WOUND CARE RE-EVALUATION NOTE: PT'S MEDICAL CONDITION HSA CHANGED SINCE ADMISSION, PT. WAS TRANSFERRED TO ICU FOR CLOSE MONITOR, HD M-- PT. 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 TODAY'S REASSESSMENT SKIN CONDITION CHANGED AND COMORBIDITIES RELATED PT'S CONDITION INDICATED FURTHER SKIN BREAKS.SKIN COLOR IN GENERAL IS JAUNDICE, 3RD SPACING EDEMA TO TRUNK OF BODY AND ALL EXTREMITIES. PT CONTINUE TO HAVE LBM DUE TO MEDICATIONS. 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 WOUND EDGE FLAT, JUNE-WOUND SKIN DENUDED, WITH SURROUNDING PURPLE , DARK REDNESS AREA MEASURED 8X6 CM INDICATED FURTHER DAMAGE. -PRESSURE INJURY UN-STAGEABLE TO SACRALCOCCYX, 1.5X1.5 CM DEPTH IS UTD, WOUND BED 100% BROWN SLOUGH, DRY, AND JUNE-WOUND SKIN INTACT, NO ODOR, SURROUNDING REDNESS INDICATED FURTHER DAMAGE. RECOMMENDATIONS: -RECTAL BAG FOR MOISTURE CONTROL -ABSORBING PAD TO UPPER ARMS AND CHANGE PRN IF SOILING -KEEP SKIN DRY AND CLEAN AT ALL TIMES, PLEASE CHECK Q2H AND PRN FOR INCONTINENCY OF BOWEL AND BLADDER. -APPLY NYSTATIN POWDER TO UNDER BREAST AND ABD. FOLDS INTERTRIGO BIDWC AND PRN IF SOILING -APPLY Z-GUARD TO:RIGHT AND LEFT BUTTOCKS COVER WITH OPTIC FORM BIDWC AND PRN IF SOILING -PAINT SACRALCOCCYX WITH BETADINE, APPLY FOAM DRESSING QD AND PRN IF SOILING -OFFLOAD BILATERAL HEELS BY PLACING PILLOWS UNDER CALVES UNLESS OTHERWISE CONTRAINDICATED -PRESSURE REDISTRIBUTION SURFACE THERAPY -TURN AND REPOSITION Q2H, OFFLOAD SACRALCOCCYX BY TURNING RIGHT AND LEFT -CONTINUE TO FOLLOW RD RECOMMENDATIONS ALL ABOVE RECOMMENDATIONS DISCUSSED WITH PRIMARY RN WILL FOLLOW UP PT Q7-10 DAYS. PLEASE CONTACT WOUND CARE NURSE FOR ANY QUESTION AND CHANGE OF WOUND CONDITION. Addendum: 01/29/19 at 1303 by Sudhakar Grayson RN (Grace) SPOKE TO DR. BELLO/ COVER FOR DR. RILEY, REPORT OF CHANGE OF SKIN CONDITION, PRESSURE ULCER STAGE 2 TO BUTTOCKS. ALSO SPOKE TO SON, ALBER WEBB EXPLAIN ALL CHANGED OF SKIN CONDITION, HE UNDERSTAND PT. ADMITTED WITH UN-STAGEABLE TO SACRALCOCCYX AND ALL SKIN CONDITION TODAY'S ASSESSMENT, QUESTION ASKED" IS THERE ANYTHING ELSE YOU CAN DO?" POC DISCUSSED AND AGREEABLE AT THIS TIME FOR WOUND AND SKIN CARE.
--- NOTE | 2019-01-29 13:10 | NUR ---
TUBE FEEDING RESIDUAL 220 AT THIS TIME. WILL CONTINUE TO MONITOR.
--- NOTE | 2019-01-29 13:10 | NUR ---
ST AT BEDSIDE FOR SWALLOW EVALUATION. WILL FOLLOW UP ON DIET RECOMMENDATION.
--- NOTE | 2019-01-29 13:34 | NUR ---
S.T. REPEAT BEDSIDE SWALLOW EVAL COMPLETED See report for details. Pt presents w/ moderate-severe oropharyngeal dysphagia c/b prolonged oral prep, delayed pharyngeal swallow initiation and diminished laryngeal elevation. Due to pt's poor endurance, solids, nectar thick and thin liquids not trialed to reduce risk of aspiration during eval. Recommend: 1) Advance to HONEY THICK clear liquid diet. No straws; liquids via spoon only. NO SOLIDS. 2) P.O. meds crushed and mixed w/ puree if able to tolerate. Pt does not present with strong rehab potential. DC to [facility] care at this time. No further tx indicated. D/w PENNIE Kebede results/recommendations. Time [id number]
--- NOTE | 2019-01-29 13:40 | NUR ---
DR. RILEY MADE AWARE OF ST EVAL RESULT AND RECOMMENDATIONS. WILL FOLLOW UP ON ORDERS.
[2019-01-29] MEDS: traMADol 50 MG TAB PO PRN (14:35)
--- NOTE | 2019-01-29 14:42 | NUR ---
01/29/19 RD FOLLOW UP COMPLETED PLEASE REFER TO NUTRITION ASSESSMENT UNDER CARE ACTIVITY FOR ESTIMATED NUTRITIONAL NEEDS. 1. CONTINUE CLEAR LIQUID DIET WITH HONEY THICK CONSISTENCY 2. RECOMMEND ENSURE CLEAR HONEY THICK BID 3. RD TO FOLLOW-UP 2-3 DAYS, HIGH RISK STEVE TAY, RD
[2019-01-29] MEDS ORDERED: BOWEL EVACUANT DRINK 4,000 ML PDS NG SCH (15:00)
[2019-01-29] MEDS ORDERED: MORPHINE SULFATE 2 MG/ML SYR IVP SCH (15:00)
--- NOTE | 2019-01-29 15:00 | NUR ---
PT IS RESTLESS, TRYING TO PULL OUT NGT, PULLING OUT WRIST BANDS. DR. RILEY MADE AWARE, MITTENS APPLIED ORDERED.
--- NOTE | 2019-01-29 16:14 | NUR ---
DC PLANNING: CLINICAL HAS BEEN FAXED TO [facility] @ [phone]. CONTACTED [facility] ( CLINICAL LIAISON @ [facility] ) @ P . PATIENT HAS BEEN ACCEPTED. CURRENTLY PENDING ON ROOM NUMBER AT [place]. TO FOLLOW UP NEEDED.
--- NOTE | 2019-01-29 16:30 | NUR ---
BLOOD SUGAR 61. PT REFUSED TO EAT JELLO OR THICKED JUICE. GAVE 125 ML APPLE JUICE VIA NGT. WILL CONTINUE TO MONITOR.
--- NOTE | 2019-01-29 17:30 | NUR ---
RECHECKED BLOOD SUGAR, 154 AT THIS TIME. PT IS RESTING, NO SIGNS OF ACUTE DISTRESS NOTED AT THIS TIME.
--- NOTE | 2019-01-29 19:05 | NUR ---
PT TRANSFERRED TO TELE ROOM 118, REPORT GIVEN TO PENNIE CM AT BEDSIDE. NO SIGNS OF ACUTE DISTRESS NOTED AT THIS TIME.
--- NOTE | 2019-01-29 19:10 | NUR ---
SBAR REPORT RECEIVED AT BEDSIDE. PATIENT TRANSFERRED FROM ICU. PATIENT POSITIONED FOR COMFORT, VITALS WNL. NO ACUTE DISTRESS NOTED.
--- NOTE | 2019-01-29 19:35 | NUR ---
SBAR REPORT GIVEN TO BANKING SPECIALIST RN AT PT BEDSIDE. PATIENT RESTING IN BED, NO ACUTE DISTRESS NOTED.
--- NOTE | 2019-01-29 19:36 | NUR ---
RECEIVED BEDSIDE REPORT FROM DAY SHIFT RNSOILA. PATIENT IS STABLE WITH NO SIGNS OF DISTRESS ON RA, SAFETY PRECAUTIONS IN PLACE.
--- NOTE | 2019-01-29 21:20 | NUR ---
ADMINISTERED SCHEDULED MEDICATION VIA NG TUBE. PATIENT TOLERATED WELL PATIENT BUT IS MOANING GRIMACING AND APPEARS TO BE IN DISCOMFORT. WHEN ASKED IF SHE HAS PAIN, SHE SAYS "NO". WHEN ASKED IF SHE WANTS ANY MEDICATION FOR PAIN SHE SAYS "NO". WHEN ASKED IF SHE IS UNCOMFORTABLE SHE SAYS "YES, IN MY BELLY". BELLY IS DISTENDED AND FIRM, BOWEL SOUNDS ARE ACTIVE.
[2019-01-29] MEDS: LEVOFLOXACIN 250 MG/D5 PREMIX 50 ML IV SCH (22:26)
--- NOTE | 2019-01-29 22:40 | NUR ---
ADMINISTERED SCHEDULED MEDICATIONS. PATIENT HAD A BOWEL MOVEMENT. CLEANED PATIENT AND REPOSITIONED FOR COMFORT. SAFETY PRECAUTIONS IN PLACE, CALL LIGHT IN REACH.
[2019-01-30] VITALS: BP 92/41
--- NOTE | 2019-01-30 00:15 | NUR ---
PATIENT SLEEPING, NO SIGNS OF DISTRESS ON RA. SAFETY PRECAUTIONS IN PLACE.
[2019-01-30] MEDS: HYDRAGUARD CREAM TP SCH ×2 (00:49→13:12)
[2019-01-30] MEDS: Z-GUARD PASTE TP SCH ×2 (00:49→13:13)
[2019-01-30] MEDS: traMADol 50 MG TAB PO PRN ×2 (00:49→23:10)
[2019-01-30] MEDS: NYSTATIN CRE 100 MU/GM 15 GM TUBE TP SCH ×2 (00:50→13:13)
--- NOTE | 2019-01-30 02:30 | NUR ---
REPOSITIONED PATIENT, NO SIGNS OF DISTRESS ON RA. PATIENT MOANING BUT DENIES PAIN.
[2019-01-30 04:00] VITALS: BP 97/45
[2019-01-30] MEDS: MIDODRINE 5 MG TAB PO SCH ×3 (05:12→20:40)
--- NOTE | 2019-01-30 05:22 | NUR ---
ADMINISTERED SCHEDULED MEDICATIONS. PATIENT HAD A BOWEL MOVEMENT. CLEANED AND REPOSITIONED PATIENT. WILL CONTINUE TO MONITOR.
--- NOTE | 2019-01-30 07:15 | NUR ---
GAVE BEDSIDE REPORT TO DAY SHIFT RN, PATIENT STABLE.
[2019-01-30] MEDS: ALBUTEROL SULFATE/IPRATROPIU 3 ML SOL IH SCH ×3 (07:20→19:41)
--- NOTE | 2019-01-30 07:20 | NUR ---
RECEIVED PT FROM METAL FENCE ERECTOR NURSE, REG, PT IS ON A BREATHING TREATMENT WITH RT ON THE BEDSIDE, PT HAS AN NG TUBING IN PLACE, PT HAS ANASARCA AND HAS A CENTRAL LINE DOUBLE LUMEN ON THE RT MIDLINE UA DOUBLE LUMEN WITH D5 INFUSING AT A RATE OF 15ML/HR, INTACT, PT HAS A SOFT WRIST RESTRAINT IN PLACE, BILATERAL SACRAL OPEN WOUND, CHADWICK CATHETER IN PLACE, PT IS NON-VERBAL, SATURATION ON ROOM AIR. WILL CONTINUE TO MONITOR PT.
[2019-01-30] MEDS: BLOOD GLUCOSE MONITORING 1 DEV DEV FS SCH ×4 (07:30→20:55)
[2019-01-30 08:00] VITALS: BP 97/71
[2019-01-30 08:58] LABS: BASOPHILS % (AUTO) 0.2 % (0.0-2.0); EOSINOPHILS # (AUTO) 0.1 K/uL (0-0.4); EOSINOPHILS % (AUTO) 0.7 % (0.0-4.0); HEMATOCRIT 34.6 % (36-48); HEMOGLOBIN 11.5 g/dL (12.0-16.0); LYMPHOCYTES # (AUTO) 0.9 K/uL (2.5-16.5); LYMPHOCYTES % (AUTO) 6.3 % (20.5-51.1); MEAN CORPUSCULAR HEMOGLOBIN 30 pg (27-31); MEAN CORPUSCULAR HGB CONC 33 g/dL (33-37); MEAN CORPUSCULAR VOLUME 91.4 fL (80-94); MONOCYTES # (AUTO) 0.3 K/uL (0.8-1.0); MONOCYTES % (AUTO) 1.8 % (1.7-9.3); RED BLOOD CELL COUNT(AUTO) 3.79 MIL/uL (4.20-5.40); RED CELL DISTRIBUTION WIDTH 19.9 % (11.6-13.7); WHITE BLOOD COUNT (AUTO) 14.2 K/uL (4.8-10.8)
[2019-01-30 09:07] LABS: PLATELET COUNT (AUTO) 70 K/uL (140-450)
[2019-01-30] MEDS: PANTOPRAZOLE 40 MG INJ VIAL IVP SCH (09:35)
[2019-01-30] MEDS: FERROUS SULFATE 325 MG TABEC PO SCH (09:36)
[2019-01-30] MEDS: ASPIRIN 81 MG TAB.CHEW PO SCH (09:36)
[2019-01-30] MEDS: LACTULOSE 20 GM/30 ML UDC PO SCH ×2 (09:36→20:40)
[2019-01-30] MEDS: LACTOBACILLUS RHAMNOSUS GG 1 EACH CAP PO SCH (09:36)
[2019-01-30] MEDS: ASCORBIC ACID 500 MG TAB PO SCH (09:37)
[2019-01-30] MEDS: RIFAXIMIN 550 MG TAB PO SCH (09:37)
--- NOTE | 2019-01-30 10:00 | NUR ---
PT IS AWAKE AND LYING ON THE BED WITH SIDE RAILS UP AND CALL LIGHT WITHIN REACH, MEDICATIONS WERE GIVEN VIA NG TUBE AND PT TOLERATED IT, NG TUBE PLACEMENT WAS CHECKED. NO SIGN OF DISTRESS NOTED AND WILL MONITOR PT.
[2019-01-30 10:09] LABS: SODIUM SERUM 144 mmol/L (136-145)
--- NOTE | 2019-01-30 10:09 | NUR ---
JUSTIN FROM LAB CALLED AND REPOTED THE PT'S CRITICAL LAB VALUE OF K WHICH IS 2.9, ACKNOWLEDGED AND WILL INFORM THE MD.
[2019-01-30 10:10] LABS: ANION GAP 18.7 (8-16); CARBON DIOXIDE 21.2 mmol/L (21-32); CHLORIDE 107 mmol/L (98-107); CREATININE 2.2 mg/dL (0.6-1.3); GLUCOSE 120 mg/dL (74-106); POTASSIUM 2.9 mmol/L (3.5-5.1); UREA NITROGEN, BLOOD 33 mg/dL (7-18)
[2019-01-30 10:14] LABS: MAGNESIUM 1.7 mg/dL (1.8-2.4); PHOSPHORUS 2.9 mg/dL (2.5-4.9)
[2019-01-30] MEDS: DEXT 5% /NACL 0.9% 1,000 ML IV SCH (10:27)
[2019-01-30] MEDS ORDERED: POTASSIUM CHLORIDE 40 MEQ, LIDOCAINE MPF 1% - 5 mL VIAL 25 MG in NACL 0.9% 250 ML IV SCH (11:00)
--- NOTE | 2019-01-30 11:00 | NUR ---
PT WAS CLEANED AND REPOSITIONED AND MADE COMFORTABLE. NO SIGN OF DISTRESS NOTED AND WILL MONITOR PT.
[2019-01-30] MEDS: FLUCONAZOLE 200 MG/NS PREMIX 100 ML IV SCH (11:33)
--- NOTE | 2019-01-30 11:39 | NUR ---
PT IS AWAKE, RESPONDS WHEN CALLED BY NAME, BLOOD GLUCOSE CHECK DONE AND RESULT IS 111, NO INSULIN COVERAGE NEEDED, MEDICATION WAS GIVEN VIA IVPB AND PT TOLERATED IT. VITAL SIGNS CHECKED AND BP IS 104/45, PULSE IS 79, TEMPERATURE IS 97.2, O2 SATURATION IS 98%, RESPIRATION IS 18/MIN AND NO SIGN OF DISTRESS NOTED, WILL MONITOR PT. WILL MONITOR PT.
--- NOTE | 2019-01-30 11:52 | NUR ---
DR. RILEY CAME TO THE PT'S ROOM AND IS ASSESSING PT NOW, AUSCULTATING THE PT.
[2019-01-30 12:00] VITALS: BP 104/45
[2019-01-30] MEDS ORDERED: MAGNESIUM OXIDE 400 MG TAB PO SCH (12:06)
[2019-01-30] MEDS: GAUZE TP SCH (13:12)
--- NOTE | 2019-01-30 13:27 | NUR ---
PT IS AWAKE AND POTASSIUM RIDER WAS STARTED, MAGNESIUM PO TABLET WAS GIVEN VIA NG TUBE, PT TOLERATED IT. WILL MONITOR PT.
--- NOTE | 2019-01-30 13:28 | NUR ---
PT'S WOUND WAS ASSESSED AND CLEANED AND MEDICATED, REINFORCED WITH OPTIFOAM DRESSING.
[2019-01-30 16:00] VITALS: BP 91/43
--- NOTE | 2019-01-30 19:15 | NUR ---
ENDORSED PT TO CITY DESIGNER NURSEJUAN FOR CONTINUITY OF CARE, PT IS STABLE AT THIS TIME.
--- NOTE | 2019-01-30 19:30 | NUR ---
RECEIVED BEDSIDE REPORT FROM DAY SHIFT NURSE. PATIENT IS AWAKE, ABLE TO FOLLOW SIMPLE COMMANDS. RESPIRATION EVEN UNLABORED ON ROOM AIR. SKIN IS WARM AND DRY. DENIES PAIN. NGT IN PLACE, POSITIVE PLACEMENT CHECKED. LIJ VENECIA CATHETER NOTED. KIRSTIN MIDLINE PATENT AND INTACT W/ GOOD BLOOD RETURNS. CHADWICK CATHETER IN PLACE DRAINING DARK LOLITA URINE. BLE/BUE BRUISES, ECCHYMOSIS, AND EDEMATOUS NOTED. SKIN IS NON-INTACT SEE WOUND ASSESSMENT. DRESSING IS INTACT. PLAN OF CARE WAS DISCUSSED. ALL SAFETY MEASURES IN PLACE. BED IS AT LOW POSITION. CALL LIGHT WITHIN REACH. WILL CONTINUE TO MONITOR.
[2019-01-30 20:00] VITALS: BP 106/45
--- NOTE | 2019-01-30 20:00 | NUR ---
INITIAL ASSESSMENT DONE. VITALS WERE TAKEN. PATIENT IS STABLE. NO DISTRESS NOTED. WILL CONTINUE TO MONITOR.
--- NOTE | 2019-01-30 20:02 | NUR ---
RECEIVED PATIENT ON ROOM AIR, PULSE OX SAT 97%. SCHEDULED BREATHING TREATMENT ADMINISTERED. TOLERATED TREATMENT WELL WITHOUT ADVERSE SIDE EFFECTS. NO RESPIRATORY DISTRESS NOTED AT THIS TIME. WILL CONTINUE TO MONITOR.
[2019-01-30] MEDS ORDERED: VANCOMYCIN 1GM/DEXT 5% PREMIX 200 ML IV SCH (21:00)
--- NOTE | 2019-01-30 21:00 | NUR ---
ALL SCHEDULED MEDS WERE GIVEN AND TOLERATED IT WELL. NO ASE NOTED. WILL CONTINUE TO MONITOR
--- NOTE | 2019-01-30 23:10 | NUR ---
PATIENT IS IN PAIN. ADMINISTERED PAIN MED PER ORDER. FAMILY AT BEDSIDE. WILL CONTINUE TO MONITOR.
[2019-01-31] VITALS: BP 96/46
--- NOTE | 2019-01-31 | NUR ---
VITALS WERE TAKEN. PATIENT CONDITION STABLE. NO DISTRESS NOTED. WILL CONTINUE TO MONITOR.
--- NOTE | 2019-01-31 01:00 | NUR ---
PROVIDE PATIENT GOOD PERICARE AND CHADWICK CATHETER CARE. CHANGED WOUND DRESSING AND TOLERATED IT WELL. WILL CONTINUE TO MONITOR
[2019-01-31] MEDS: NYSTATIN CRE 100 MU/GM 15 GM TUBE TP SCH ×2 (01:32→13:21)
[2019-01-31] MEDS: Z-GUARD PASTE TP SCH ×2 (01:32→13:21)
[2019-01-31] MEDS: HYDRAGUARD CREAM TP SCH ×2 (01:32→13:21)
--- NOTE | 2019-01-31 03:00 | NUR ---
PATIENT SLEEPING COMFORTABLY. RESPIRATION EVEN UNLABORED ON ROOM AIR. NO DISTRESS NOTED. WILL CONTINUE TO MONITOR
[2019-01-31 04:00] VITALS: BP 97/48
--- NOTE | 2019-01-31 04:00 | NUR ---
VITALS WERE TAKEN. PATIENT CONDITION STABLE. NO DISTRESS NOTED. WILL CONTINUE TO MONITOR
[2019-01-31] MEDS: MIDODRINE 5 MG TAB PO SCH ×2 (04:15→13:19)
[2019-01-31] MEDS: BLOOD GLUCOSE MONITORING 1 DEV DEV FS SCH ×3 (06:13→16:52)
[2019-01-31 07:06] LABS: BASOPHILS % (AUTO) 0.1 % (0.0-2.0); EOSINOPHILS # (AUTO) 0.1 K/uL (0-0.4); EOSINOPHILS % (AUTO) 0.6 % (0.0-4.0); HEMATOCRIT 34.9 % (36-48); HEMOGLOBIN 11.6 g/dL (12.0-16.0); LYMPHOCYTES # (AUTO) 0.8 K/uL (2.5-16.5); LYMPHOCYTES % (AUTO) 5.5 % (20.5-51.1); MEAN CORPUSCULAR HEMOGLOBIN 31 pg (27-31); MEAN CORPUSCULAR HGB CONC 33 g/dL (33-37); MEAN CORPUSCULAR VOLUME 92.2 fL (80-94); MONOCYTES # (AUTO) 0.4 K/uL (0.8-1.0); MONOCYTES % (AUTO) 2.6 % (1.7-9.3); NEUTROPHILS # (AUTO) 13.1 K/uL (1.8-7.7); NEUTROPHILS % (AUTO) 91.2 % (42.2-75.2); PLATELET COUNT (AUTO) 57 K/uL (140-450); RED BLOOD CELL COUNT(AUTO) 3.78 MIL/uL (4.20-5.40); RED CELL DISTRIBUTION WIDTH 20.3 % (11.6-13.7); WHITE BLOOD COUNT (AUTO) 14.3 K/uL (4.8-10.8)
[2019-01-31 07:09] LABS: ANION GAP 19.8 (8-16); CARBON DIOXIDE 19.9 mmol/L (21-32); CHLORIDE 108 mmol/L (98-107); CREATININE 2.5 mg/dL (0.6-1.3); GLUCOSE 96 mg/dL (74-106); POTASSIUM 3.7 mmol/L (3.5-5.1); SODIUM SERUM 144 mmol/L (136-145); UREA NITROGEN, BLOOD 35 mg/dL (7-18)
[2019-01-31 07:16] LABS: MAGNESIUM 1.8 mg/dL (1.8-2.4); PHOSPHORUS 3.2 mg/dL (2.5-4.9)
[2019-01-31] MEDS: ALBUTEROL SULFATE/IPRATROPIU 3 ML SOL IH SCH ×3 (07:18→19:52)
--- NOTE | 2019-01-31 07:34 | NUR ---
ENDORSED PATIENT TO DAY SHIFT NURSE. PATIENT IS IN STABLE CONDITION.
--- NOTE | 2019-01-31 07:35 | NUR ---
RECEIVED ENDORSEMENT FROM LIQUID SUGAR MELTER NURSE. DIALYSIS NURSE IS PRESENT AT BEDSIDE. MITTEN RESTRAINTS NOTED. RESPIRATIONS ARE EVEN AND UNLABORED ON ROOM AIR. PT IS AAOX2. LEFT IJ VENECIA NOTED AND INTACT. RIGHT UPPER ARM MIDLINE INTACT, PATENT, AND INFUSING IVF. NG TUBE INTACT. F/C NOTED AND DRAINING DARK LOLITA URINE. PLAN OF CARE WAS REVIEWED WITH PT. PT UNABLE TO VERBALIZE UNDERSTANDING. SAFETY MEASURES IN PLACE, CALL LIGHT WITHIN REACH. WILL CONTINUE TO MONITOR. Addendum: 01/31/19 at 0829 by Edyta Franks RN FLACC 0
[2019-01-31 08:00] VITALS: BP 85/41
--- NOTE | 2019-01-31 08:00 | NUR ---
HEMODIALYSIS NURSE ON UNIT TO START HEMODIALYSIS. WILL CONTINUE TO MONITOR.
[2019-01-31] MEDS ORDERED: ALBUMIN HUMAN 25% 100 ML IV SCH (09:00)
[2019-01-31] MEDS: PANTOPRAZOLE 40 MG INJ VIAL IVP SCH (09:00)
--- NOTE | 2019-01-31 09:55 | NUR ---
ADMINISTERED SCHEDULED MEDICATIONS. DIALYSIS NURSE AT BEDSIDE. PT DROWSY, NURSE BEDSIDE EVALUATION WITH SMALL APPLESAUCE PERFORMED. PT POCKETS APPLESAUCE IN MOUTH. UNABLE TO SWALLOW MEDS AT THIS TIME. MEDS GIVEN VIA NG TUBE. WILL NOTIFY .
[2019-01-31] MEDS: FERROUS SULFATE 325 MG TABEC PO SCH (09:57)
[2019-01-31] MEDS: ASPIRIN 81 MG TAB.CHEW PO SCH (09:58)
[2019-01-31] MEDS: LACTOBACILLUS RHAMNOSUS GG 1 EACH CAP PO SCH (09:58)
[2019-01-31] MEDS: LACTULOSE 20 GM/30 ML UDC PO SCH (09:58)
[2019-01-31] MEDS: ASCORBIC ACID 500 MG TAB PO SCH (09:58)
[2019-01-31] MEDS: DEXT 5% /NACL 0.9% 1,000 ML IV SCH (10:27)
--- NOTE | 2019-01-31 11:00 | NUR ---
HEMODIALYSIS COMPLETED. O FLUID OUT. BP IS STILL LOW. WILL NOTIFY
[2019-01-31] MEDS: FLUCONAZOLE 200 MG/NS PREMIX 100 ML IV SCH (11:41)
[2019-01-31 12:00] VITALS: BP 114/33
--- NOTE | 2019-01-31 12:47 | NUR ---
DC PLANNING: KAUR SPOKE WITH [facility] ( CLINICAL LIAISON @ [facility] ) @ . PATIENT IS ACCEPTED AT [facility] AND FOLLOWING MD IS ANGEL. ROOM NUMBER IS [id number]. AFTER 1830 CALL FOR REPORT @ P . CM SPOKE WITH PATIENT's SON ( ALBER WEBB) @ AND DISCUSSED DC PLAN. PATIENT' S SON STATED HE WOULD WANT TO SPEAK WITH ONCOLOGIST PRIOR TO AGREEING TO DC PATIENT TO [facility]. CM NOTIFIED DR. RILEY REGARDING THE CASE. DR. RILEY WILL SPEAK WITH PATIENT'S SON. CM TO FOLLOW UP.
--- NOTE | 2019-01-31 13:00 | NUR ---
NG TUBE REMOVED PER MD ORDERS. PATIENT TOLERATED WELL. WILL CONTINUE TO MONITOR.
--- NOTE | 2019-01-31 13:00 | NUR ---
ADMINISTERED SCHEDULED MEDICATIONS. PT STILL UNABLE TO SWALLOW. ADMINISTERED MEDS VIA NG TUBE. PT VERY LETHARGIC. WILL CONTINUE TO MONITOR.
[2019-01-31] MEDS ORDERED: MYCC TP (13:12)
[2019-01-31] MEDS ORDERED: PANT40PD7 IVP (13:12)
[2019-01-31] MEDS ORDERED: LACT10SO11 PO (13:12)
[2019-01-31] MEDS ORDERED: ZGUARD TP (13:12)
[2019-01-31] MEDS ORDERED: LACT10CA PO (13:12)
[2019-01-31] MEDS ORDERED: Vancomycin Per Pharmacy MC (13:12)
[2019-01-31] MEDS ORDERED: PRO5 PO (13:12)
[2019-01-31] MEDS ORDERED: TRAM50TA3 PO (13:12)
[2019-01-31] MEDS: GAUZE TP SCH (13:20)
--- NOTE | 2019-01-31 13:56 | NUR ---
01/31/19 RD FOLLOW UP COMPLETED PLEASE REFER TO NUTRITION ASSESSMENT UNDER CARE ACTIVITY FOR ESTIMATED NUTRITIONAL NEEDS. 1. CONTINUE NPO MEDICALLY NECESSARY 2. WHEN PT IS MEDICALLY STABLE CONSIDER ADVANCING TO CLEAR LIQUIDS WITH HONEY THICK LIQUIDS 3. IF PO DIET <75% CONSIDER ENTERAL NUTRITION TO SUPPLEMENT PO DIET WITH FORMULA: NEPRO WITH CARBSTEADY AT GOAL RATE 30 ML/HR -THIS WILL PROVIDE 1296 KCAL, 58 GM OF PROTEIN WITH MEETS 75% OF KCAL NEEDS AND 100% OF PROTEIN NEEDS. FREE WATER FLUSH [address] TO FOLLOW-UP 2-3 DAYS, HIGH RISK STEVE TAY RD
--- NOTE | 2019-01-31 15:22 | NUR ---
Needle Maker Note: I was informed by Regional Patient Experience Vacuum Drier Operator Ghazala she met with patient's son Tyrell Alvarado and he has concerns about patient not being able to make medical decisions. I told Ghazala I will follow up with patient's son. and I met with patient's son Tyrell. He stated he was told by [facility] staff he needs to assist patient with completing an Advance Directive. He reported patient is not able to make medical decisions at this time, agreed. I explained to him a person has to be coherent to complete an Advance Directive. He verbalized understanding. He told me he is the one who makes medical decisions on patient's behalf. He apologized and stated this was all new to him. I encouraged him to express concerns or concerns if he had any and reassured him we are here to address his questions or concerns. He told me patient use to have [employer] coverage and does not know how to reapply. I told him [facility] staff can assist him with [employer] application. He told me he is not familiar with [facility] services. I offered to contact Derik at [facility] and request for someone from [place] to meet with patient's son Tyrell and provide him with information about [facility] and also [employer] application information. Tyrell agreed. I called and spoke with Derik from [facility] and relayed information provided to me by Tyrell. Per Derik, he will contact Tyrell and request for someone from [place] to meet with him once patient is at [facility].
--- NOTE | 2019-01-31 15:42 | NUR ---
Transportation arrange with [facility] . Pt will be picked up at [address] [facility] [address] [id number]. . Deandre Flanagan RN pt's meat pickler time at 1999.
[2019-01-31 16:00] VITALS: BP 110/90
--- NOTE | 2019-01-31 16:15 | NUR ---
CHANGED PATIENT. PT READY FOR DISCHARGE. MOTOR VEHICLE FIELD REPRESENTATIVE IS AT 1999. WILL CONTINUE TO MONITOR.
--- NOTE | 2019-01-31 17:40 | NUR ---
RIGHT UPPER ARM MIDLINE DRESSING CHANGED USING ASEPTIC TECHNIQUE. PATIENT TOLERATED WELL. WILL CONTINUE TO MONITOR.
--- NOTE | 2019-01-31 19:03 | NUR ---
GAVE REPORT TO PENNIE MORAN AT [facility]. ANSWERED ALL QUESTIONS. EMERGENCY DOCTOR SCHEDULED AT 8 PM.
--- NOTE | 2019-01-31 19:25 | NUR ---
RECEIVED BEDSIDE REPORT FROM DAY SHIFT NURSE. PATIENT IS GOING TO BE TRANSFER TO [facility]. REPORT IS ALREADY GIVEN PER DAY SHIFT REPORT. PATIENT IS IN STABLE CONDITION. AWAITING FOR SON AND [facility] TO BE RAIL CAR WELDER. WILL CONTINUE TO MONITOR.
--- NOTE | 2019-01-31 19:28 | NUR ---
ENDORSED TO MENTAL HEALTH CONSULTANT NURSE FOR CONTINUITY OF CARE. PATIENT IS STABLE.
--- NOTE | 2019-01-31 20:28 | NUR ---
PATIENT PICKED UP BY [facility] [place] [facility] TRANSFERRING TO [facility] VIA GURNEY WITH HER BELONGINGS. PATIENT SON IS PRESENT AT THE MOMENT AND AWARE OF THE SITUATION. PATIENT CONDITION STABLE.
== END 2019-01-31 20:28 | DRG 441 ==
LOC: MED 20:05 → MMU 21:33 → MIC 01-25 10:00 → MTU 01-29 18:39
PROVIDERS: ADMIT General Practice; ATTEND General Practice
PROC: 0DB68ZX Excision of Stomach, Via Natural or Artificial Opening Endoscopic, Diagnostic (ICD-10-PCS; principal; 2019-01-20 13:00)
PROC: 05HY33Z Insertion of Infusion Device into Upper Vein, Percutaneous Approach (ICD-10-PCS; 2019-01-23)
PROC: 0FB23ZX Excision of Left Lobe Liver, Percutaneous Approach, Diagnostic (ICD-10-PCS; 2019-01-24)
PROC: 30233N1 Transfusion of Nonautologous Red Blood Cells into Peripheral Vein, Percutaneous Approach (ICD-10-PCS; 2019-01-26)
PROC: 02HV33Z Insertion of Infusion Device into Superior Vena Cava, Percutaneous Approach (ICD-10-PCS; 2019-01-26)
PROC: B548ZZA Ultrasonography of Superior Vena Cava, Guidance (ICD-10-PCS; 2019-01-26)
PROC: 5A1D70Z Performance of Urinary Filtration, Intermittent, Less than 6 Hours Per Day (ICD-10-PCS; 2019-01-26)
PROC: 5A1D70Z Performance of Urinary Filtration, Intermittent, Less than 6 Hours Per Day (ICD-10-PCS; 2019-01-27)
PROC: 5A1D70Z Performance of Urinary Filtration, Intermittent, Less than 6 Hours Per Day (ICD-10-PCS; 2019-01-29)
PROC: 5A1D70Z Performance of Urinary Filtration, Intermittent, Less than 6 Hours Per Day (ICD-10-PCS; 2019-01-31)
DX: K72.90 Hepatic failure, unspecified without coma (principal); J69.0 Pneumonitis due to inhalation of food and vomit; N17.0 Acute kidney failure with tubular necrosis; E43 Unspecified severe protein-calorie malnutrition; G93.41 Metabolic encephalopathy; J96.01 Acute respiratory failure with hypoxia; N39.0 Urinary tract infection, site not specified; C78.7 Secondary malignant neoplasm of liver and intrahepatic bile duct; I13.0 Hypertensive heart and chronic kidney disease with heart failure and stage 1 through stage 4 chronic kidney disease, or unspecified chronic kidney disease; R18.8 Other ascites; J98.11 Atelectasis; K80.00 Calculus of gallbladder with acute cholecystitis without obstruction; E87.2 Acidosis; C19 Malignant neoplasm of rectosigmoid junction; L89.152 Pressure ulcer of sacral region, stage 2; D63.8 Anemia in other chronic diseases classified elsewhere; E11.22 Type 2 diabetes mellitus with diabetic chronic kidney disease; E78.00 Pure hypercholesterolemia, unspecified; E78.5 Hyperlipidemia, unspecified; I25.10 Atherosclerotic heart disease of native coronary artery without angina pectoris; I50.9 Heart failure, unspecified; Z88.0 Allergy status to penicillin; K27.9 Peptic ulcer, site unspecified, unspecified as acute or chronic, without hemorrhage or perforation; K29.70 Gastritis, unspecified, without bleeding; K74.60 Unspecified cirrhosis of liver; Y95 Nosocomial condition; R62.7 Adult failure to thrive; E83.39 Other disorders of phosphorus metabolism; E83.41 Hypermagnesemia; I27.20 Pulmonary hypertension, unspecified; E11.65 Type 2 diabetes mellitus with hyperglycemia; K59.09 Other constipation; R31.9 Hematuria, unspecified; R16.0 Hepatomegaly, not elsewhere classified; N18.3 Chronic kidney disease, stage 3 (moderate); E87.6 Hypokalemia; E83.42 Hypomagnesemia; Z99.2 Dependence on renal dialysis; Z95.1 Presence of aortocoronary bypass graft; Z87.891 Personal history of nicotine dependence; Z86.73 Personal history of transient ischemic attack (TIA), and cerebral infarction without residual deficits; Z22.322 Carrier or suspected carrier of Methicillin resistant Staphylococcus aureus; Z79.82 Long term (current) use of aspirin; Z79.899 Other long term (current) drug therapy; Z83.3 Family history of diabetes mellitus; Z68.32 Body mass index [BMI] 32.0-32.9, adult
CPT/HCPCS: 36415; 70450; 71045; 71250; 74018; 76705; 76770; 77012; 78445; 80048; 80053; 80076; 80202; 80305; 81001; 82140; 82378; 82436; 82570; 82948; 83036; 83605; 83690; 83735; 83880; 84100; 84134; 84300; 84443; 84484; 85025; 85610; 85730; 86677; 86704; 86706; 86708; 86709; 86803; 86886; 86900; 86901; 86920; 87040; 87081; 87086; 87186; 87205; 87340; 88305; 88312; 88313; 90935; 92610; 93005; 94640; 96361; 96365; 96375; 99285; C1751; C9113; J1200; J1450; J1642; J1644; J1650; J1815; J1885; J1940; J1956; J2001; J2250; J2270; J2405; J3010; J3370; J3430; J3475; J3480; J3490; J7030; J7042; J7060; J7620; P9016; P9046; Q0092; Q0163